=== PATIENT | female | born 1955 | race Caucasian/White ===

== ENCOUNTER 2020-12-03 12:07 | Outpatient (REF) | payer MEDICAID, SELFPAY ==
--- NOTE | ~2020-12-03 | MM_ITS ---
EXAMINATION: MM SCREENING DIGITAL BREAST TOMOSYNTHESIS, BILATERAL CLINICAL INFORMATION: Screening. Asymptomatic. The lifetime risk of breast cancer based on the Tyrer-Cuzick Model is 5%. COMPARISON: Mammography: 11/28/2019, 11/22/2018. TECHNIQUE: Digital breast tomosynthesis is performed in both the craniocaudal and mediolateral oblique views along with computer-aided detection (CAD). Synthesized 2D images are generated from the tomosynthesis. Additional bilateral CC and right MLO views are provided. FINDINGS: There are scattered areas of fibroglandular density (ACR BI-RADS breast composition Category b). There are no significant masses, abnormal calcifications, or other abnormalities. Parenchymal pattern is similar to prior studies. Low left axillary tail node. Stable. Skin contours are smooth. No erosive changes. MM/MM tomosynthesis screening BI IMPRESSION: No mammographic evidence of malignancy. ASSESSMENT: BI-RADS 2: Benign RECOMMENDATION: Routine annual mammography screening. This patient's information was entered into a reminder system with a target due date for their next mammogram.
== END 2020-12-03 12:08 | disposition home or self-care (01) ==
LOC: HO.MAMMO 12:07
PROVIDERS: Visit Provider Internal Medicine Geriatric Medicine
DX: Z12.31 Encounter for screening mammogram for malignant neoplasm of breast (principal)
CPT/HCPCS: 77063; 77067

== ENCOUNTER 2021-02-06 10:24 | Outpatient (REF) | payer MEDICAID, SELFPAY ==
--- NOTE | ~2021-02-06 | XR_ITS ---
EXAMINATION: XR CHEST CLINICAL INFORMATION: Asthma. Suspect COVID exposure. COMPARISON: Vp Training film CT dated 03/02/2018 and chest film dated 06/01/2017. TECHNIQUE: 2 views of the chest were obtained. FINDINGS: Bibasilar areas of atelectasis. No large area of infiltrate. The mid to upper lung zones are grossly clear. Stable probable granuloma left upper lung zone. The cardiac silhouette is comparable to previous. The hilar structures do not appear pathologically enlarged. Degenerative change in the thoracic spine. No compression injury. XR/XR chest 2V IMPRESSION: Bilateral basilar areas of atelectasis/mild infiltrate. The mid to upper lung zones are grossly clear.
== END 2021-02-06 10:25 | disposition home or self-care (01) ==
LOC: HO.XRAY 10:24
PROVIDERS: Absent Provider Internal Medicine Geriatric Medicine; PCP Internal Medicine Geriatric Medicine; Visit Provider Nurse Practitioner Family
DX: J45.21 Mild intermittent asthma with (acute) exacerbation (principal); R91.8 Other nonspecific abnormal finding of lung field
CPT/HCPCS: 71046

== ENCOUNTER 2021-05-30 13:34 | Outpatient (REF) | payer MEDICAID, SELFPAY ==
--- NOTE | ~2021-05-30 | XR_ITS ---
EXAMINATION: XR CHEST CLINICAL INFORMATION: Cough COMPARISON: Chest radiographs 02/06/2021, 06/01/2017 TECHNIQUE: 2 views of the chest were obtained. FINDINGS: There is subtle airspace opacity mid right middle lobe. There is no lobar or segmental airspace consolidation or or air bronchograms. No effusion. Posterior costophrenic sulci are clear. There is an old calcified granuloma overlying the anterior lateral left upper lobe at level of aortic knob similar to prior studies. The cardiac and hilar and mediastinal contours and bony structures are stable. Again, there is bulky calcific tendinosis left shoulder. XR/XR chest 2V IMPRESSION: 1. Suspect subtle airspace opacity mid right middle lobe. No effusion. 2. Old calcified granuloma left upper lobe, benign.
== END 2021-05-30 13:35 | disposition home or self-care (01) ==
LOC: HO.XRAY 13:34
PROVIDERS: Absent Provider Internal Medicine Geriatric Medicine; PCP Internal Medicine Geriatric Medicine; Visit Provider Family Medicine
DX: R05.9 Cough, unspecified (principal)
CPT/HCPCS: 71046

== ENCOUNTER 2021-07-26 16:59 | Emergency (ER) | payer MEDICAID, SELFPAY ==
[2021-07-26 17:04] VITALS: BP 173/69; PULSE 102; RESP 20; TEMP 36.9; O2SAT 95; BMI 38.3
--- NOTE | 2021-07-26 17:14 | ED.DIZZY ---
HPI - Dizziness General Chief Complaint: Dizziness Stated Complaint: Dizzy, ear? Time Seen by Provider: 07/26/21 17:13 Source: patient Mode of arrival: ambulatory Limitations: no limitations History of Present Illness HPI Narrative: Patient is a 65 year old female presenting to the emergency department today with dizziness and nausea. Patient states that she was diagnosed with an inner ear issue when she lived in [place] but hasn't had an episode of it in years. Patient states she feels as though the room is spinning. Patient states that she has had sinus pressure for the last few months. Patient states that she was just seen by her PCP who acknowledged all of her symptoms and performed blood testing but did not give her anything for her symptoms. Patient denies any lightheadedness, abdominal pain, vomiting, fever, chills, blurry vision, double vision, loss of vision, chest pain, difficulty breathing, shortness of breath, back pain, night sweats, pain with urination, increased urinary frequency, increased urinary urgency, blood in her urine or stool, syncope or a near syncopal episode, recent trauma or falls, bowel incontinence, bladder incontinence, bowel retention, bladder retention, or any other complaints at this time. MD elicited complaint: dizziness Pertinent past history: BPPV Timing: gradual onset Severity: mild Description: room spinning Context: change in body position History of similar symptoms: Yes Exacerbating factors: movement/ambulation Relieving factors: remaining still Associated symptoms: nausea and nasal congestion Stroke scale total: 0 Related Data Home Medications Medication Instructions Recorded Confirmed Space Chamber Plus 07/14/21 07/14/21 acetaminophen 500 mg tablet 500 mg PO Q6H PRN 07/14/21 07/14/21 albuterol sulfate 90 mcg/actuation 2 puff INHALATION Q4-6H PRN 07/14/21 07/14/21 aerosol inhaler (ProAir HFA) atorvastatin 20 mg tablet 1 tab PO DAILY 07/14/21 07/14/21 blood pressure test kit-large 07/14/21 07/14/21 chlorthalidone 50 mg tablet 1 tab PO DAILY 07/14/21 07/14/21 fluticasone propionate 110 2 puff PO BID 07/14/21 07/14/21 mcg/actuation HFA aerosol inhaler (Flovent HFA) fluticasone propionate 110 2 puff PO BID 07/14/21 07/14/21 mcg/actuation HFA aerosol inhaler (Flovent HFA) metformin 500 mg tablet 1 tab PO 07/14/21 nifedipine 60 mg tablet,extended 1 tab PO BID 07/14/21 07/14/21 release Previous Rx's Medication Instructions Recorded doxycycline hyclate 100 mg tablet 100 mg PO DAILY 7 Days #14 tab 07/26/21 Allergies Allergy/AdvReac Type Severity Reaction Status Date / Time aspirin [ASPIRIN] Allergy Unknown ANGIOEDEMA Unverified 01/25/20 17:34 cephalexin Allergy Diarrhea Verified 07/14/21 13:13 lisinopril Allergy Rash Verified 07/14/21 13:13 Review of Systems Constitutional: Constitutional: Reports no additional constitutional complaints, Denies chills, Denies fever(s) and Denies night sweats Eyes: Eyes: Reports no additional eye complaints, Denies blurry vision, Denies change in vision, Denies diplopia, Denies eye discharge, Denies loss of vision and Denies eye pain ENT: Reports dizziness and Reports nasal congestion Cardiovascular: Cardiovascular: Reports no additional cardiovascular complaints, Denies chest pain, Denies lightheadedness, Denies Loss of Consciousness and Denies dyspnea Respiratory: Respiratory: Reports no additional respiratory complaints and Denies dyspnea Gastrointestinal: Gastrointestinal: Reports no additional gastrointestinal complaints, Denies abdominal pain, Denies melena, Denies hematochezia, Denies change in bowel habits and Denies change in stool character Genitourinary: Genitourinary: Denies hematuria, Denies urinary frequency, Denies dysuria, Denies urinary incontinence, Denies urinary hesitancy and Denies urinary urgency Musculoskeletal: Musculoskeletal: Reports no additional musculoskeletal complaints, Denies numbness and Denies tingling Neurologic: Reports dizziness, Denies loss of vision, Denies numbness and Denies tingling Psychiatric: Psychiatric: Reports no additional psychiatric complaints Endocrine: Endocrine: Reports no additional endocrine complaints Hematologic/Lymphatic: Hematologic/Lymphatic: Reports no additional hematologic/lymphatic complaints Allergic/Immunologic: Allergic/Immunologic: Reports no additional allergic/immunologic complaints PMFSH Past Medical History Attestation statement: The following information was validated with the patient. Source: old records reviewed Medical History Chronic bilateral low back pain without sciatica Diabetes HTN (hypertension) Hyperlipemia Lung infiltrate Lung mass Lung nodule Moderate persistent asthma Morbid obesity Osteoarthritis of both knees Social History Social History Advance Directives: No Advance Directives Information Provided: No Patient : No Physical Exam Vital Signs: Vital Signs: Last Vital Signs Temp 98.4 F 07/26/21 17:04 Pulse 102 H 07/26/21 17:04 Resp 20 07/26/21 17:04 BP 173/69 H 07/26/21 17:04 Pulse Ox 95 07/26/21 17:04 BMI result Body Mass Index 38.3 Const: General: cooperative, no acute distress, alert and awake Nutritional Appearance: well nourished Orientation/consciousness: patient oriented x3 Limitations: no limitations HENMT: Head: Yes normal to inspection and Yes atraumatic Ears: hearing grossly normal bilaterally and external ears normal General nose exam: Normal external nose present, no nasal discharge noted and no epistaxis Face and sinus: Yes normal facial exam, No abrasion and No laceration Mouth: Normal oral and palatal mucosa present, no drooling and no muffled voice Eyes: General: appearance normal, both eyes and all related structures Periorbital: periorbital findings normal Eyelids: Yes eyelids normal Conjunctivae: conjunctivae normal Pupils: Equal, round and reactive pupils present EOM: EOMs intact bilaterally Neck: Neck: Yes normal visual inspection, Yes full ROM and Yes no lymphadenopathy Chest: Chest palpation & inspection: normal inspection of the chest Resp: Effort & Inspection: normal respiratory effort and able to speak in complete sentences Auscultation: clear to auscultation bilaterally Cardio: Rate: regular rate Rhythm: regular rhythm GI: Inspection: Yes normal to inspection Neuro: General: patient oriented x3 and moves all extremities Cranial nerves: Yes Equal, round and reactive pupils present Cognition (Neuro): normal cognition Motor exam (neuro): 5/5 motor strength present throughout Sensory Exam: Normal double simultaneous stimulation for sensation Coordination: [id number] test normal Extrem: General: Yes normal to inspection, Yes full ROM and Yes capillary refill normal Psych: Appearance: grossly normal Mental Status: mental status grossly normal Affect: normal affect Attitude: cooperative Thought process: Normal thought process present Thought content: Normal thought content present Insight: Good insight present (Psych) MDM - Dizziness MDM Narrative Medical decision making narrative: Patient is a 65 year old female presenting to the emergency department today with dizziness, nausea, and congestion. Patient's physical exam was unremarkable, including a normal neurological examination. Patient's physical examination was consistent with a BPPV secondary to a likely sinus infection. I explained my physical exam findings to the patient. I answered all questions asked by the patient. Patient received PO Meclazine and Zofran which she stated helped her symptoms significantly. I stressed the importance of the patient taking her medication as prescribed. I stressed the importance of the patient following up with her primary care provider. I stressed the importance of the patient returning to the emergency department immediately if her symptoms were to worsen or if she were to develop any dizziness, shortness of breath, difficulty breathing, chest pain, blurry vision, loss of vision, nausea, vomiting, abdominal pain, fever, chills, back pain, or any other complaints. Patient verbalized agreement and understanding with this treatment plan and discharge. Differential Diagnosis Differential diagnosis: Likely benign paroxysmal positional vertigo Medical Records Attestation: I reviewed the patient's medical records. Discharge Plan Discharge Clinical Impression: Sinusitis Patient Disposition: Home, Self-Care Instructions: Sinusitis (ED) Additional Instructions: Follow up with your primary care provider. Return to the emergency department immediately if your symptoms worsen or if you develop any dizziness, shortness of breath, difficulty breathing, chest pain, blurry vision, loss of vision, nausea, vomiting, abdominal pain, fever, chills, back pain, or any other complaints. Prescriptions: New doxycycline hyclate 100 mg tablet 100 mg PO DAILY 7 Days Qty: 14 0RF No Action atorvastatin 20 mg tablet 1 tab PO DAILY 0RF acetaminophen 500 mg Tablet 500 mg PO Q6H PRN (Reason: Pain) 0RF (DME) blood pressure test kit-large Kit MISCELLANEOUS BID 0RF metformin 500 mg tablet 1 tab PO 0RF chlorthalidone 50 mg tablet 1 tab PO DAILY 0RF albuterol sulfate [ProAir HFA] 90 mcg/actuation Hfa Aerosol Inhaler 2 puff INHALATION Q4-6H PRN (Reason: Shortness Of Breath Or Wheezing) 0RF nifedipine 60 mg tablet extended release 1 tab PO BID 0RF Flovent HFA 110 mcg/actuation HFA aerosol inhaler 2 puff PO BID 0RF Flovent HFA 110 mcg/actuation HFA aerosol inhaler 2 puff PO BID 0RF (DME) Space Chamber Plus 0RF Referrals: [facility] [Primary Care Provider] - 2 days Hayley Peres MD [Physician] - 2 days Interventions: ED Discharge Assessment Last Done: 07/26/21 17:34 Discharge Date/Time: 07/26/21 17:36 Print Language: Malian
[2021-07-26] MEDS: Ondansetron ODT 4 MG TAB.RAPDIS TRANSLINGU (17:22)
[2021-07-26] MEDS: Meclizine HCl 12.5 MG TABLET PO (17:25)
== END 2021-07-26 17:36 | disposition home or self-care (01) ==
PROVIDERS: Emergency Provider Emergency Medicine
DX: J32.9 Chronic sinusitis, unspecified (principal); R42 Dizziness and giddiness; E11.9 Type 2 diabetes mellitus without complications; I10 Essential (primary) hypertension; E78.5 Hyperlipidemia, unspecified; Z79.02 Long term (current) use of antithrombotics/antiplatelets
CPT/HCPCS: 99283

== ENCOUNTER 2022-01-19 11:23 | Outpatient (REF) | payer MEDICARE, MEDICAID, SELFPAY ==
--- NOTE | ~2022-01-19 | XR_ITS ---
EXAMINATION: XR CHEST CLINICAL INFORMATION: Localized edema COMPARISON: 05/30/2021 TECHNIQUE: 2 views of the chest were obtained. FINDINGS: 5 mm left upper lobe granuloma again seen. Ill-defined opacity again seen at the right lung base, nonspecific. There was a medial right lower lobe nodule on the prior chest CT this abnormality is more lateral in position. Persistent, perhaps increased streaky opacities at the left lung base. No pleural effusion or pneumothorax. Normal heart size. Regional skeleton intact.. XR/XR chest 2V IMPRESSION: An ill-defined nodular opacity at the right lung base persists from the prior study. For this reason, a chest CT is recommended for further evaluation. Increased streaky opacities at left lung base may represent pneumonia. The report will be called to the ordering clinician by a [place] [facility].
== END 2022-01-19 11:24 | disposition home or self-care (01) ==
LOC: HO.XRAY 11:23
PROVIDERS: PCP Internal Medicine Geriatric Medicine; Visit Provider Internal Medicine Geriatric Medicine
DX: R00.0 Tachycardia, unspecified (principal); R06.01 Orthopnea; R06.09 Other forms of dyspnea; R60.0 Localized edema
CPT/HCPCS: 71046

== ENCOUNTER → 2022-02-06 13:47 | Outpatient (REF) | payer MEDICARE, MEDICAID, SELFPAY ==
--- NOTE | 2022-02-06 13:52 | CA_ITS ---
Transthoracic Echocardiogram Patient (Last, First, Middle): Kamryn Worley M Gender: Female Date of : 1955 Age: 66 Procedure Date: 02/06/2022 Procedure Type: Transthoracic Echocardiogram Location: OP Height: 167.64 cm Weight: 99.79 kg BSA: 2.08 m2 Heart Rate: 84 bpm BP: 130 / 60 mmHg Executive Assistant: TO Referring MD: Ion Faulkner MD Symptoms: TACHY,DYSPNEA,ORTHOPNEA ABN.EKG Study Quality: Technically Difficult/Contrast Declined Conclusions: - Normal left ventricular size and systolic function. There is mildly increased left ventricular wall thickness. The visually estimated ejection fraction is between 60-65%. - E/E prime ratio is >15, consistent with elevated filling pressures. - Normal right ventricular cavity size and systolic function. Findings Procedure Information The quality of the study was technically difficult. The patient declines contrast. Left Ventricle Normal left ventricular size and systolic function. There is mildly increased left ventricular wall thickness. The visually estimated ejection fraction is between 60-65%. Abnormal diastolic function is noted. Spectral Doppler is indicative of an impaired relaxation filling pattern. E/E prime ratio is >15, consistent with elevated filling pressures. Right Ventricle Normal right ventricular cavity size and systolic function. Atria The left atrium is normal in size. The right atrium is normal in size. Aortic Valve The aortic valve structure and function is likely normal. There is no aortic valve stenosis. There is no aortic valve regurgitation. Mitral Valve The mitral valve appears normal. There is no mitral valve regurgitation. There is no mitral valve stenosis. Pulmonic Valve The pulmonic valve is likely normal. Tricuspid Valve Normal tricuspid valve structure and function. There is trace tricuspid valve regurgitation. Normal right atrial pressure. There is no evidence of pulmonary hypertension. Great Vessels There is mild dilatation of the sinuses of Valsalva measuring 3.53 cm. The visualized portions of the pulmonary artery and branches are normal. Venous The inferior vena cava is normal in size and collapses greater than 50% with inspiration. Pericardium/Pleural Prominent epicardial adipose tissue noted. There is a small pericardial effusion. There are no definitive echocardiographic findings of tamponade physiology. Prior Study Comparison No prior study available for comparison. Measurements 2D Linear Measurements IVSd: 1.05 0.6-0.9/0.6-1.0 cm LVIDd: 4.32 3.9-5.3/4.2-5.9 cm LVIDd Index: 2.08 2.4-3.2/2.2-3.1 cm/m2 LVIDs: 2.20 2.0-3.6 cm LVPWd: 1.10 0.7-1.1 cm LA Diam: 4.60 2.7-3.8/3.0-4.0 cm LAIDs Index: 2.21 1.5-2.3 cm/m2 LV Mass: 197.83 67-162/88-224 g LV Mass Index: 95.11 43-95/49-115 g/m2 LVOT Diam: 2.00 3.0+(-)1.3 cm Mitral Valve MV Pk E: 0.93 MV PK A: 0.99 MV Decel Time: 200.00 E/A: 0.90 E'Lateral: 4.68 E'Medial: 4.35 E/E' Med: 21.40 E/E' Lat: 19.90 PHT: 59.00 MVA PHT: 3.73 Decel Weld: 4.65 Aortic Valve AoV Pk Fernando: 1.64 AoV Mn Fernando: 1.08 AoV VTI: 0.31 AoV Pk Grad: 11.00 Aov Mn Grad: 5.00 ERMELINDA Cont.VTI: 2.32 LVOT LVOT Pk Fernando: 1.27 LVOT Mn Fernando: 0.83 LVOT VTI: 0.23 LVOT Pk Grad: 6.00 LVOT Mn Grad: 3.00 LVOT Diam: 2.00 LVOT Area: 3.14 Diastolic Function MV Pk E: 0.93 MV Pk A: 0.99 E/A: 0.90 E'Medial: 4.35 E/E' Med: 21.40 E' Laterial: 4.68 E/E' Lat: 19.90 Right Ventricle TAPSE (mm): 25.00 TVS' Fernando: 20.60 Tricuspid Valve TR Pk Fernando: 2.76 TR Pk Grad: 30.00 RA Press: 3.00 RVSP: 33.00 Great Vessels Aorta Sinus of Valsalva: 3.53 2.0-3.[address] Ridge: 2.50 1.7-3.4 cm Ao Asc: 3.10 2.1-3.4 cm Updated in Other Vendor System with Status of Final Saeed Szymanski MD electronically signed on 02/06/2022 8:44:04 PM with status of Final
== END ==
LOC: HO.CARD 13:47
PROVIDERS: PCP Internal Medicine Geriatric Medicine; Visit Provider Internal Medicine Geriatric Medicine
DX: R00.0 Tachycardia, unspecified (principal); R94.31 Abnormal electrocardiogram [ECG] [EKG]
CPT/HCPCS: 93306

== ENCOUNTER 2022-02-25 13:03 | Outpatient (REF) | payer MEDICARE, MEDICAID, SELFPAY ==
--- NOTE | ~2022-02-25 | XR_ITS ---
EXAMINATION: XR CHEST CLINICAL INFORMATION: Pneumonia. COMPARISON: Chest radiograph 01/19/2022. TECHNIQUE: 2 views of the chest were obtained. FINDINGS: Stable appearance of the cardiomediastinal silhouette. An ill-defined irregular opacity in the right lower lobe, persists. As before, correlation with a chest CT is recommended. A 5 mm left upper lobe granuloma is redemonstrated. No new focal airspace opacities. Subsegmental atelectasis versus scarring in the left lower lobe are noted. No pleural effusion or pneumothorax. No acute osseous abnormalities. Thoracic spondylosis. XR/XR chest 2V IMPRESSION: 1. Persistent irregular opacity in the right lower lobe. Recommend correlation with a chest with IV contrast 2. No new focal airspace opacities. 3. No pleural effusion or pneumothorax. 4. Subsegmental atelectasis versus scarring in the left lower lobe.
== END 2022-02-25 13:04 | disposition home or self-care (01) ==
LOC: HO.XRAY 13:03
PROVIDERS: PCP Internal Medicine Geriatric Medicine; Visit Provider Internal Medicine Geriatric Medicine
DX: Z87.01 Personal history of pneumonia (recurrent) (principal)
CPT/HCPCS: 71046

== ENCOUNTER 2022-03-26 14:51 | Outpatient (REF) | payer MEDICARE, MEDICAID, SELFPAY | END 2022-03-26 14:52 | disposition home or self-care (01) | LOC: HO.CT 14:51 | PROVIDERS: PCP Internal Medicine Geriatric Medicine; Visit Provider Internal Medicine Geriatric Medicine | DX: Z13.89 Encounter for screening for other disorder (principal) ==

== ENCOUNTER 2022-03-31 09:26 | Outpatient (REF) | payer MEDICARE, MEDICAID, SELFPAY ==
--- NOTE | ~2022-03-31 | CT_ITS ---
EXAMINATION: CT CHEST WITH CONTRAST CLINICAL INFORMATION: Pulmonary mass COMPARISON: Previous chest x-ray most recent February [address] most recent February 2019 TECHNIQUE: Multidetector volumetric CT imaging of the chest was obtained after the administration of 65 mL of Omnipaque 350 intravenous contrast without immediate adverse reactions. Axial MIP volume rendering provided. Sagittal and coronal reformatted images were obtained. This CT examination was performed using dose optimization techniques as appropriate, variously including the following: *Automated exposure control *Adjustment of mA and/or kV according to patient size (this includes techniques or standardized protocols for targeted exams where dose is matched to indication/reason for exam; i.e. extremities or head) *Use of iterative reconstruction technique DLP: 228 mGy-cm FINDINGS: LUNGS: Evaluation of the lungs is limited due to artifact from respiratory motion. There is a 5 mm calcified left upper lobe nodule probably representing a calcified granuloma axial image 64 series 7. There may be be areas of bronchial wall thickening or airways disease. There is subsegmental atelectasis or small infiltrates at the lung bases in the right middle lobe, and bilateral lower lobes. This obscures the known right middle lobe nodule. This measures approximately 1.2 cm axial image 1:15 series 7 and is probably not appreciably changed. MEDIASTINUM: Normal heart size. Mild coronary artery calcification. No pericardial effusion. Small mediastinal lymph nodes. No enlarged lymph nodes. PLEURA: There is no pleural effusion. No pleural mass or thickening. AXILLA: No lymphadenopathy. UPPER ABDOMEN: Unremarkable OSSEOUS STRUCTURES: Degenerative changes of the spine. Stable sclerotic density in the T8 vertebral body. CT/CT chest w IV con IMPRESSION: Probable no appreciable change in the known right middle lobe nodule. Evaluation is somewhat limited due to artifact from respiratory motion and atelectasis or small infiltrates at the lung bases. Stable calcified left upper lobe nodule probably representing a calcified granuloma. Fleischner guidelines were followed.
[2022-03-31] MEDS: iohexoL 350 MG/ML 100 ML INFUS..BTL IV (10:16)
[2022-03-31 14:46] LABS: Creatinine POC 0.9 mg/dL (0.5-1.4); GFR POC > 60
== END 2022-03-31 09:27 | disposition home or self-care (01) ==
LOC: HO.CT 09:26
PROVIDERS: PCP Internal Medicine Geriatric Medicine; Visit Provider Internal Medicine Geriatric Medicine
DX: R91.8 Other nonspecific abnormal finding of lung field (principal)
CPT/HCPCS: 71260; 82565; Q9967

== ENCOUNTER 2022-08-06 12:56 | Emergency (ER) | payer MEDICARE, MEDICAID, SELFPAY ==
--- NOTE | ~2022-08-06 | XR_ITS ---
EXAMINATION: XR CHEST CLINICAL INFORMATION: Shortness of breath. COMPARISON: 02/25/[address] scan dated 03/31/2022. TECHNIQUE: Frontal view of the chest was obtained. FINDINGS: Small calcified granuloma in the left upper lobe. The right lung is clear. The heart and mediastinal structures are unremarkable. XR/XR chest 1V IMPRESSION: No acute cardiopulmonary process.
--- NOTE | ~2022-08-06 | US_ITS ---
EXAMINATION: US VENOUS ULTRASOUND WITH DOPPLER LOWER EXTREMITY, BILATERAL CLINICAL INFORMATION: Left greater than right edema shortness of breath COMPARISON: None available. TECHNIQUE: Ultrasound of the deep veins is performed from the hip to the calf with compression sonography and color and pulse Doppler assessment. Spectral analysis with color-flow imaging is performed. FINDINGS: RIGHT: There is normal venous compression and respiratory variation and augmented flow. The visualized common femoral vein, superficial femoral vein, profunda femoral vein, popliteal vein, and the trifurcation region shows no evidence of deep venous thrombosis. There is no significant popliteal fossa cyst. LEFT: There is normal venous compression and respiratory variation and augmented flow. The visualized common femoral vein, superficial femoral vein, profunda femoral vein, popliteal vein, and the trifurcation region shows no evidence of deep venous thrombosis. There is no significant popliteal fossa cyst. If the patient's symptoms persist, followup ultrasound in 5 days 7 days might be of value to exclude proximal propagation from a non-visualized calf vein. US/US venous duplex LE BI IMPRESSION: No DVT demonstrated in the bilateral lower extremity.
[2022-08-06 13:07] VITALS: BP 157/75; BP 164/67; PULSE 105; PULSE 92; RESP 20; TEMP 36.7; O2SAT 90; O2SAT 96; BMI 36.3
--- NOTE | 2022-08-06 13:07 | ECG_ITS ---
Test Reason : SOB Blood Pressure : / mmHG Vent. Rate : 091 BPM Atrial Rate : 091 BPM P-R Int : 168 ms QRS Dur : 082 ms QT Int : 356 ms P-R-T Axes : 044 016 070 degrees QTc Int : 437 ms Artifact in tracing Sinus rhythm with occasional Premature ventricular complexes Possible Anterior infarct (cited on or before 05-JAN-2019) Abnormal ECG When compared with ECG of 05-JAN-2019 17:19, Premature ventricular complexes are now Present Referred By: Jesus Garcia Electronically Signed By:ULISES CHOWDHURY
[2022-08-06 13:12] VITALS: PULSE 97; RESP 18; O2SAT 89
[2022-08-06] MEDS: Albuterol Sulfate (0.083%) 2.5 MG/3 ML VIAL.NEB INHALE (13:12)
--- NOTE | 2022-08-06 13:17 | PC.NURSE ---
Addendum entered by Anjelica Brannon 08/06/22 13:20: lungs sounds clear bilaterally Original Note: pt coming from [facility] with low O2 sat. 90% RA in ED. Pt given updraft on 5L currently bringing O2 to 98%. EKG done, tech drawing labs. site monitor on, will cont to monitor.
[2022-08-06 13:28] LABS: MANUAL DIFF FLAG NO
[2022-08-06] MEDS: methylPREDNISolone Sod Succ 125 MG/2 ML VIAL IVPUSH (13:29)
--- NOTE | 2022-08-06 13:31 | PC.NURSE ---
pt medicated per order. pt finished albuterol treatment,.lungs sounds clear. Sat on room air 88/90%.
[2022-08-06 13:33] LABS: Basophils Absolute Auto 0.1 X10*3/uL (0.0-0.2); Basophils Percent Auto 0.8 % (0-2); Eosinophils Absolute Auto 1.2 X10*3/uL (0.0-0.4); Eosinophils Percent Auto 10.9 % (0-4); Hematocrit 39.9 % (37.0-47.0); Hemoglobin 13.1 g/dl (12.0-16.0); Imm Gran Abs Auto 0.03 X10*3/uL (0.00-0.03); Imm Gran Pct Auto 0.3 % (0.0-0.4); Lymphocytes Absolute Auto 3.3 X10*3/uL (1.2-4.9); Lymphocytes Percent Auto 30.3 % (20-40); Mean Corpuscular HGB Conc 32.8 g/dl (31.0-35.0); Mean Corpuscular Hemoglobin 28.4 pg (27.0-33.0); Mean Corpuscular Volume 86.6 fL (80.0-98.0); Mean Platelet Volume 8.9 fL (9.4-12.3); Monocytes Absolute Auto 1.1 X10*3/uL (0.1-1.2); Monocytes Percent Auto 9.9 % (2-11); Neutrophils Absolute Auto 5.1 x10*3/uL (2.0-8.3); Neutrophils Percent Auto 47.8 % (45-73); Platelet Count 333 X10*3/uL (160-400); Red Blood Count 4.61 X10*6/uL (4.20-5.50); Red Cell Distribution Width 13.6 % (11.0-16.0); White Blood Count 10.7 X10*3/uL (4.8-10.8)
[2022-08-06 13:48] LABS: Anion Gap 18 (12-20); Blood Urea Nitrogen 17 mg/dL (9-16); Calcium 9.6 mg/dL (8.4-10.2); Carbon Dioxide 30 mmol/L (22-29); Chloride 99 mmol/L (96-108); Creatinine Clr Calc Pharmacy 81.4; Estimated Glomerular Filt Rate > 60; Glucose Random 145 mg/dL (60-115); Potassium 3.6 mmol/L (3.3-5.1); Sodium 143 mmol/L (135-145)
[2022-08-06 13:55] LABS: B Type Natriuretic Peptide 10 pg/mL (<100)
[2022-08-06 13:58] LABS: Troponin-I High Sensitivity < 3.5 ng/L (<3.5-17.0)
[2022-08-06 14:03] VITALS: BP 147/67; PULSE 90; RESP 18; O2SAT 90
[2022-08-06 14:32] VITALS: PULSE 91; RESP 15; O2SAT 91
--- NOTE | 2022-08-06 14:33 | PC.NURSE ---
pt O2 remaining 89 on RA, this nurse put pt on 2L O2. sat 91%
--- NOTE | 2022-08-06 14:57 | ED_ITS ---
HPI - General Adult General Chief complaint: Dyspnea Stated complaint: SOB FROM MD OFFICE PER EMS Time Seen by Provider: 08/06/22 13:06 Source: patient Mode of arrival: ambulatory Limitations: no limitations History of Present Illness HPI narrative: 66-year-old female presents with shortness of breath. Symptoms started today. Associated with cough, congestion, mucus production. She denies any fevers or chills. She denies any chest pain. She was at her clinic noting that her oxygen saturation was in the 80s. She was given albuterol her oxygen saturation improved. On route, she was 96% on 2 L nasal cannula. Access was obtained. Patient describes her symptoms as moderate to severe. They are worse with exertion. They are better with rest. She did denies any orthopnea, PND lower extremity edema. She denies a history of PE or DVT. Patient has had similar symptoms in the past and does have chronic pulmonary disease for which she takes albuterol and Flovent. She takes her medications appropriately. Related Data Home Medications Medication Instructions Recorded Confirmed Space Chamber Plus 07/14/21 07/14/21 acetaminophen 500 mg tablet 500 mg PO Q6H PRN Pain 07/14/21 07/14/21 albuterol sulfate 90 mcg/actuation 2 puff inhalation Q4-6H PRN 07/14/21 07/14/21 aerosol inhaler (ProAir HFA) Shortness Of Breath Or Wheezing atorvastatin 20 mg tablet 1 tab PO DAILY 07/14/21 07/14/21 blood pressure test kit-large 07/14/21 07/14/21 chlorthalidone 50 mg tablet 1 tab PO DAILY 07/14/21 07/14/21 fluticasone propionate 110 2 puff PO BID 07/14/21 07/14/21 mcg/actuation HFA aerosol inhaler (Flovent HFA) fluticasone propionate 110 2 puff PO BID 07/14/21 07/14/21 mcg/actuation HFA aerosol inhaler (Flovent HFA) metformin 500 mg tablet 1 tab PO 07/14/21 nifedipine 60 mg tablet,extended 1 tab PO BID 07/14/21 07/14/21 release Previous Rx's Medication Instructions Recorded doxycycline hyclate 100 mg tablet 100 mg PO DAILY 7 days #14 tabs 07/26/21 peg 3350-electrolytes 236 240 ml PO Q10M 1 day #4,000 mL 09/18/21 gram-22.74 gram-6.74 gram-5.86 gram solution (Golytely) albuterol sulfate 2.5 mg/3 mL 2.5 mg (3 mL) inhalation Q4-6H PRN 08/06/22 (0.083 %) solution for nebulization shortness of breath or wheezing #180 mL azithromycin 250 mg tablet 250 mg PO DAILY 4 days #4 tabs 08/06/22 prednisone 50 mg tablet 50 mg PO DAILY #5 tabs 08/06/22 Allergies Allergy/AdvReac Type Severity Reaction Status Date / Time aspirin [ASPIRIN] Allergy Unknown ANGIOEDEMA Unverified 08/06/22 13:28 cephalexin Allergy Diarrhea Verified 08/06/22 13:28 lisinopril Allergy Rash Verified 08/06/22 13:28 COUNT INCLUDES THE [facility] Past Medical History Medical History Chronic bilateral low back pain without sciatica Diabetes HTN (hypertension) Hyperlipemia Lung infiltrate Lung mass Lung nodule Moderate persistent asthma Morbid obesity Osteoarthritis of both knees Social History Social History Alcohol intake: never Smoked in Last 30 Days: No Use of substances other than those prescribed or required for medical reasons: No Advance Directives: No Physical Exam ED Vital Signs: Vital Signs - 24 hr 08/06/22 13:07 08/06/22 13:12 08/06/22 14:03 Temperature 98.1 F Pulse Rate 92 97 90 Respiratory Rate 20 18 18 Blood Pressure 157/75 H 147/67 H Pulse Oximetry 90 L 90 L Oxygen Delivery Method Room Air Room Air Oxygen Flow Rate 08/06/22 14:32 Temperature Pulse Rate 91 Respiratory Rate 15 Blood Pressure Pulse Oximetry 91 L Oxygen Delivery Method Nasal Cannula Oxygen Flow Rate 2 BMI result Body Mass Index 36.3 GEN: Well developed, no acute distress, alert, oriented HEENT: Normocephalic, atraumatic, normal external ears, nose appears normal, no oropharyngeal edema or exudates Eyes: Normal to appearance Neck: Supple, no lymphadenopathy Respiratory: Talks in complete sentences, no respiratory distress, clear to auscultation bilaterally Cardiovascular: Regular rate and rhythm, no murmurs rubs or gallops Abdomen: Soft, nontender, nondistended, no guarding, no rebound Back: No CVA tenderness Extremities: No clubbing cyanosis or edema Neurologic: No focal neurologic deficits, cranial nerves 2-12 intact, strength is 5/5 bilaterally, gait normal Skin: No rash Course Course Course Narrative: 66-year-old female presents with shortness of breath. On exam, she had no wheezing. I did not appreciate any crackles. She did have some asymmetric lower extremity edema is trace on the left minimal on the right. Her oxygen saturation was certainly diminished. Will obtain an ultrasound rule out DVT. Consider CT scan of the chest rule out PE. Will obtain a chest x-ray to rule out bronchitis, pneumonia, CHF. Will provide patient with a nebulizer treatment and steroids. Patient had frequent re-evaluations. Reevaluation(s) Reevaluation #1: patient still hypoxic, will give duoneb now and reevaluate Time: 15:11 Reevaluation #2: Patient has finished her 3rd treatment this afternoon. She is currently off oxygen we will see how she does determine if she requires admission or not. Time: 16:15 Reevaluation #3: O2 on room air was 93% and with ambulation 90%. Will d/c with negbulizer solution and antibiotics, steroids. Time: 16:23 Medications Administered Discontinued Medications Generic Name Dose Route Start Last Admin Trade Name Abelq PRN Reason Stop Dose Admin Albuterol Sulfate 2.5 mg 08/06/22 13:07 08/06/22 13:12 Albuterol Sulfate (0.083%) 2.5 Mg/3 Ml Vial.Neb INHALE 08/06/22 13:08 2.5 mg ONCE ONE Administration Albuterol Sulfate 2.5 mg/ 0 mg 08/06/22 15:10 08/06/22 15:46 Ipratropium Supai 0.5 mg INHALE 08/06/22 15:11 2.5 each ONCE ONE Administration Methylprednisolone Sodium Succinate 125 mg 08/06/22 13:07 08/06/22 13:29 Methylprednisolone Sod Succ 125 Mg/2 Ml Vial IVPUSH 08/06/22 13:08 125 mg ONCE ONE Administration Medical Decision Making Medical Decision Making MDM Narrative: 66-year-old female presents with shortness of breath. On exam, she had no wheezing. I did not appreciate any crackles. She did have some asymmetric lower extremity edema is trace on the left minimal on the right. Her oxygen sat uration was certainly diminished. Will obtain an ultrasound rule out DVT. Consider CT scan of the chest rule out PE. Will obtain a chest x-ray to rule out bronchitis, pneumonia, CHF. Will provide patient with a nebulizer treatment and steroids. Patient had frequent re-evaluations. Differential Diagnosis Differential Diagnoses: The differential diagnosis associated with the presentation includes (CHF, bronchitis, pneumonia, asthma exacerbation, COPD exacerbation, pleural effusion, pulmonary edema, acute coronary syndrome) asthma exacerbation, Dyspnea Admission/Observation Consideration of admission/observation: Escalation of care including admission/observation considered Lab Data MDM Lab Attestation statement: I reviewed the patient's lab results. 08/06/22 13:25 08/06/22 13:25 Labs: Lab Results 08/06/22 08/06/22 08/06/22 Range/Units 13:25 13:25 13:25 WBC 10.7 (4.8-10.8) X10*3/uL RBC 4.61 (4.20-5.50) X10*6/uL Hgb 13.1 (12.0-16.0) g/dl Hct 39.9 (37.0-47.0) % MCV 86.6 (80.0-98.0) fL MCH 28.4 (27.0-33.0) pg MCHC 32.8 (31.0-35.0) g/dl RDW 13.6 (11.0-16.0) % Plt Count 333 (160-400) X10*3/uL MPV 8.9 L (9.4-12.3) fL Immature Gran % (Auto) 0.3 (0.0-0.4) % Neut % (Auto) 47.8 (45-73) % Lymph % (Auto) 30.3 (20-40) % Rooks % (Auto) 9.9 (2-11) % Eos % (Auto) 10.9 H (0-4) % Baso % (Auto) 0.8 (0-2) % Lymph # (Auto) 3.3 (1.2-4.9) X10*3/uL Rooks # (Auto) 1.1 (0.1-1.2) X10*3/uL Eos # (Auto) 1.2 H (0.0-0.4) X10*3/uL Baso # (Auto) 0.1 (0.0-0.2) X10*3/uL Abs Immat Gran (auto) 0.03 (0.00-0.03) X10*3/uL Absolute Neuts (auto) 5.1 (2.0-8.3) x10*3/uL Absolute Nucleated RBC 0.000 (0.0-0.012) X10*3/uL Nucleated RBC % (auto) 0.0 (0.0-0.2) /100WBC Sodium 143 (135-145) mmol/L Potassium 3.6 (3.3-5.1) mmol/L Chloride 99 (96-108) mmol/L Carbon Dioxide 30 H (22-29) mmol/L Anion Gap 18 (12-20) BUN 17 H (9-16) mg/dL Creatinine 0.83 (0.5-1.4) mg/dL Estim Creat Clear Calc 81.4 Estimated GFR > 60 Random Glucose 145 H (60-115) mg/dL Calcium 9.6 (8.4-10.2) mg/dL Troponin I High Sens < 3.5 (<3.5-17.0) ng/L B-Natriuretic Peptide (<100) pg/mL 08/06/22 Range/Units 13:25 WBC (4.8-10.8) X10*3/uL RBC (4.20-5.50) X10*6/uL Hgb (12.0-16.0) g/dl Hct (37.0-47.0) % MCV (80.0-98.0) fL MCH (27.0-33.0) pg MCHC (31.0-35.0) g/dl RDW (11.0-16.0) % Plt Count (160-400) X10*3/uL MPV (9.4-12.3) fL Immature Gran % (Auto) (0.0-0.4) % Neut % (Auto) (45-73) % Lymph % (Auto) (20-40) % Rooks % (Auto) (2-11) % Eos % (Auto) (0-4) % Baso % (Auto) (0-2) % Lymph # (Auto) (1.2-4.9) X10*3/uL Rooks # (Auto) (0.1-1.2) X10*3/uL Eos # (Auto) (0.0-0.4) X10*3/uL Baso # (Auto) (0.0-0.2) X10*3/uL Abs Immat Gran (auto) (0.00-0.03) X10*3/uL Absolute Neuts (auto) (2.0-8.3) x10*3/uL Absolute Nucleated RBC (0.0-0.012) X10*3/uL Nucleated RBC % (auto) (0.0-0.2) /100WBC Sodium (135-145) mmol/L Potassium (3.3-5.1) mmol/L Chloride (96-108) mmol/L Carbon Dioxide (22-29) mmol/L Anion Gap (12-20) BUN (9-16) mg/dL Creatinine (0.5-1.4) mg/dL Estim Creat Clear Calc Estimated GFR Random Glucose (60-115) mg/dL Calcium (8.4-10.2) mg/dL Troponin I High Sens (<3.5-17.0) ng/L B-Natriuretic Peptide 10 (<100) pg/mL Independent Interpretation I performed an independent interpretation of an: EKG (Normal sinus rhythm heart rate 91, low voltage, no acute ST elevations depressions, nonspecific T-wave changes), Plain X-Ray (No acute cardiopulmonary disease) and Ultrasound (No DVT) Radiology Impression Discussion of test interpretation with radiology: I have reviewed the radiolog ist's reading. ( US/US venous duplex LE BI IMPRESSION: No DVT demonstrated in the bilateral lower extremity. Dictated By:Letty Luke MDSigned By:<Electronically signed by Letty Luke MD in OV>08/06/22 [id number]) Independent Historian Clinical information obtained from an independent historian. History obtained from or confirmed by: EMS Tests considered The following testing was considered but not selected: CT chest Prescription Management I considered prescription management with: Antibiotic Chronic Conditions Patient?s care impacted by: Other (Asthma) Critical Care Time Critical Care Time Critical Care Time: Yes Total Critical Care Time: 35 Attestation: Critical care time in bedside care, documentation, review of diagnostic tests, review of previous records outside of procedures. Discharge Plan Discharge Clinical Impression: Asthma, Asthma with exacerbation Patient Disposition: Home, Self-Care Instructions: Asthma (DC), How to Use a Dry-Powder Inhaler (ED), How to Use a Nebulizer (ED) Additional Instructions: You were seen today for asthma exacerbation. He received steroids, oral antibiotics, nebulizer treatment. I am recommending the use her nebulizer machine at home 4 times daily include additional 2-3 times as needed. He will start your antibiotics for from the pharmacy tomorrow and your steroids as well. Should you have any progression in your symptoms, please return immediately to the hospital for re-evaluation. Prescriptions: New albuterol sulfate 2.5 mg /3 mL (0.083 %) solution for nebulization 2.5 mg inhalation Q4-6H PRN (Reason: shortness of breath or wheezing) Qty: 180 0RF azithromycin 250 mg tablet 250 mg PO DAILY 4 Days Qty: 4 0RF Rx Instructions: start on day 2 of therapy prednisone 50 mg tablet 50 mg PO DAILY Qty: 5 0RF No Action doxycycline hyclate 100 mg tablet 100 mg PO DAILY 7 Days Qty: 14 0RF atorvastatin 20 mg tablet 1 tab PO DAILY acetaminophen 500 mg Tablet 500 mg PO Q6H PRN (Reason: Pain) (DME) blood pressure test kit-large Kit MISCELLANEOUS BID metformin 500 mg tablet 1 tab PO chlorthalidone 50 mg tablet 1 tab PO DAILY albuterol sulfate [ProAir HFA] 90 mcg/actuation Hfa Aerosol Inhaler 2 puff INHALATION Q4-6H PRN (Reason: Shortness Of Breath Or Wheezing) nifedipine 60 mg tablet extended release 1 tab PO BID Flovent HFA 110 mcg/actuation HFA aerosol inhaler 2 puff PO BID Flovent HFA 110 mcg/actuation HFA aerosol inhaler 2 puff PO BID (DME) Space Chamber Plus peg 3350-electrolytes [Golytely] 236-22.74-6.74 -5.86 gram recon soln 240 ml PO Q10M 1 Days Qty: 4000 0RF Rx Instructions: until fecal effluent is clear; do not exceed a total volume of 2,000 mL Referrals: Name,MD Ion [Primary Care Provider] -
[2022-08-06] MEDS: Azithromycin 500 MG TABLET PO (16:41)
--- NOTE | 2022-08-06 16:43 | PC.NURSE ---
zithromax given per JUL. pt walking sat @ 90% per .
== END 2022-08-06 16:51 | disposition home or self-care (01) ==
PROVIDERS: Emergency Provider Emergency Medicine; PCP Internal Medicine Geriatric Medicine
DX: J45.901 Unspecified asthma with (acute) exacerbation (principal); R06.02 Shortness of breath; R60.0 Localized edema; R94.31 Abnormal electrocardiogram [ECG] [EKG]; Z79.899 Other long term (current) drug therapy
CPT/HCPCS: 36415; 71045; 80048; 83880; 84484; 85025; 93005; 93970; 94640; 96374; 99285; J2930

== ENCOUNTER 2023-02-12 11:45 | Outpatient (REF) | payer MEDICARE, MEDICAID, SELFPAY | END 2023-02-12 11:46 | disposition home or self-care (01) | LOC: HO.HHCL 11:45 | PROVIDERS: Visit Provider Internal Medicine Geriatric Medicine | DX: J45.40 Moderate persistent asthma, uncomplicated (principal); R09.89 Other specified symptoms and signs involving the circulatory and respiratory systems; I10 Essential (primary) hypertension; J98.4 Other disorders of lung; E11.69 Type 2 diabetes mellitus with other specified complication | CPT/HCPCS: 36415; 80053; 80061; 82607; 85025 ==

== ENCOUNTER 2023-02-16 10:54 | Outpatient (REF) | payer MEDICARE, MEDICAID, SELFPAY | END 2023-02-16 10:55 | disposition home or self-care (01) | LOC: HO.HHCL 10:54 | PROVIDERS: Visit Provider Internal Medicine Geriatric Medicine | DX: E13.9 Other specified diabetes mellitus without complications (principal); J45.40 Moderate persistent asthma, uncomplicated; R09.89 Other specified symptoms and signs involving the circulatory and respiratory systems; I10 Essential (primary) hypertension; J98.4 Other disorders of lung | CPT/HCPCS: 82043; 82570 ==

== ENCOUNTER 2023-06-18 12:04 | Outpatient (REF) | payer MEDICARE, MEDICAID, SELFPAY ==
[2023-06-18 14:45] LABS: Anion Gap 16 (12-20); Blood Urea Nitrogen 15 mg/dL (9-16); Calcium 10.5 mg/dL (8.4-10.2); Carbon Dioxide 27 mmol/L (22-29); Chloride 102 mmol/L (96-108); Estimated Glomerular Filt Rate > 60; Glucose Random 97 mg/dL (60-115); Potassium 4.1 mmol/L (3.3-5.1); Sodium 141 mmol/L (135-145)
[2023-06-18 15:01] LABS: Vitamin D 25-OH Total 7.8 ng/mL (>30)
[2023-06-18 15:04] LABS: Parathyroid Hormone Intact 107.4 pg/mL (8.7-77.1)
== END 2023-06-18 12:05 | disposition home or self-care (01) ==
LOC: HO.HHCL 12:04
PROVIDERS: Visit Provider Internal Medicine Geriatric Medicine
DX: E83.52 Hypercalcemia (principal)
CPT/HCPCS: 36415; 80048; 82306; 83970

== ENCOUNTER 2023-06-21 12:10 | Outpatient (REF) | payer MEDICARE, MEDICAID, SELFPAY ==
--- NOTE | ~2023-06-21 | XR_ITS ---
EXAMINATION: XR LUMBOSACRAL SPINE CLINICAL INFORMATION: Low back pain with radiation to right buttocks COMPARISON: Lumbar spine 06/02/2027 TECHNIQUE: Three views of the lumbosacral spine. FINDINGS: There is a moderate curve of the lumbar spine, convex left. There are 5 nonrib-bearing lumbar-type vertebral bodies. The height of vertebral bodies is well-maintained. There is mild disc space narrowing at L2-L3, L3-L4 and L4-L5 with marginal osteophyte formation. There is marked disc space narrowing at L5-S1 with marginal osteophyte formation. There is marked degenerative facet joint disease L4-L5 and L5-S1. There is no spondylolisthesis. XR/XR lumbar spine 2-3V IMPRESSION: 1. Moderate curve of the lumbar spine, convex left. 2. Multilevel degenerative disc disease and degenerative facet joint disease.
== END 2023-06-21 12:11 | disposition home or self-care (01) ==
LOC: HO.XRAY 12:10
PROVIDERS: PCP Internal Medicine Geriatric Medicine; Visit Provider Internal Medicine Geriatric Medicine
DX: M79.18 Myalgia, other site (principal)
CPT/HCPCS: 72100

== ENCOUNTER 2023-09-30 13:39 | Outpatient (REF) | payer MEDICARE, MEDICAID, SELFPAY ==
[2023-09-30 17:01] LABS: Parathyroid Hormone Intact 72.4 pg/mL (8.7-77.1)
[2023-09-30 17:04] LABS: Alanine Aminotransferase 15 U/L (0-31); Albumin Level 4.5 g/dL (3.5-5.0); Alkaline Phosphatase 107 U/L (39-117); Anion Gap 22 (12-20); Aspartate Amino Transferase 20 U/L (5-31); Bilirubin Total 0.6 mg/dL (0.0-1.0); Blood Urea Nitrogen 14 mg/dL (9-16); Calcium 10.2 mg/dL (8.4-10.2); Carbon Dioxide 27 mmol/L (22-29); Chloride 101 mmol/L (96-108); Estimated Glomerular Filt Rate > 60; Glucose Random 92 mg/dL (60-115); Potassium 4.5 mmol/L (3.3-5.1); Sodium 145 mmol/L (135-145); Total Protein 7.8 g/dL (6.5-8.0)
[2023-09-30 17:23] LABS: Vitamin D 25-OH Total 35.8 ng/mL (>30)
== END 2023-09-30 13:40 | disposition home or self-care (01) ==
LOC: HO.HHCL 13:39
PROVIDERS: Visit Provider Internal Medicine Geriatric Medicine
DX: E55.9 Vitamin D deficiency, unspecified (principal); E11.9 Type 2 diabetes mellitus without complications
CPT/HCPCS: 36415; 80053; 82306; 83970

== ENCOUNTER 2024-02-24 13:35 | Outpatient (REF) | payer MEDICARE, MEDICAID, SELFPAY ==
--- NOTE | ~2024-02-24 | MM_ITS ---
EXAMINATION: MM SCREENING DIGITAL BREAST TOMOSYNTHESIS, BILATERAL CLINICAL INFORMATION: Screening. Asymptomatic. COMPARISON: Mammography: Comparison is made with available priors TECHNIQUE: Digital breast mammography with tomosynthesis is performed in both the craniocaudal and mediolateral oblique views along with computer-aided detection (CAD). FINDINGS: There are scattered areas of fibroglandular density (ACR BI-RADS breast composition Category b). There are no significant masses, abnormal calcifications, or other abnormalities. MM/MM tomosynthesis screening BI IMPRESSION: No mammographic evidence of malignancy. ASSESSMENT: BI-RADS BI-RADS 1 - Negative RECOMMENDATION: Routine annual mammography screening. 1 year F/U This examination should not preclude the clinical evaluation of a suspicious palpable abnormality. This patient's information was entered into a reminder system with a target due date for their next mammogram. Electronically signed by: Charley Parks DO 03/07/2024 12:27 PM EDT
== END 2024-02-24 13:36 | disposition home or self-care (01) ==
LOC: HO.MAMMO 13:35
PROVIDERS: PCP Internal Medicine Geriatric Medicine; Visit Provider Internal Medicine Geriatric Medicine
DX: Z12.31 Encounter for screening mammogram for malignant neoplasm of breast (principal)
CPT/HCPCS: 77063; 77067

== ENCOUNTER → 2024-02-24 13:45 | Outpatient (BNV) | payer MEDICARE, MEDICAID, SELFPAY | PROVIDERS: PCP Internal Medicine Geriatric Medicine; Visit Provider Internal Medicine | DX: Z12.31 Encounter for screening mammogram for malignant neoplasm of breast (principal) | CPT/HCPCS: 77063; 77067 ==

== ENCOUNTER 2024-07-11 11:04 | Outpatient (REF) | payer MEDICARE, SELFPAY ==
--- NOTE | ~2024-07-11 | MM_ITS ---
EXAMINATION: DXA BONE DENSITY AXIAL HISTORY: Estrogen deficiency TECHNIQUE: Software 2000 Dual energy absorptiometry (DEXA) of the lumbar spine, total left hip, and femoral neck was performed. COMPARISON: There are no prior studies for comparison. FINDINGS: The bone mineral density of the lumbar spine is 1.347 with a T-score of 1.4, and a Z-score of 1.9. The bone mineral density of the left total hip is 0.925 with a T-score of -0.7, and a Z-score of -0.2. The bone mineral density of the left femoral neck is 0.834 with a T-score of -1.5, and a Z-score of -0.6. FRACTURE RISK: The FRAX index suggests a risk of major osteoporotic fracture of 4.8%, and of hip fracture 0.5%. MM/XR DEXA axial skeleton IMPRESSION: Based on bone mineral density, and according to World Health Organization (WHO) criteria, the diagnosis is consistent with osteopenia. All bone density values are in grams per centimeter squared (g/cm2). Statistically, 68% of repeat scans fall within 1 SD (+/- 0.010 g/cm2 for AP spine L1-L4) and 1 SD (+/- 0.012 g/cm2 for femur total) FRAX is a trademark of the [employer]'s [place] for Metabolic Bone Disease, a World Health Organization (WHO) Collaborating Center. Electronically signed by: Iggy Sam MD 07/14/2024 07:27 AM EST
--- OUTSIDE RECORDS SUMMARY | 2024-07-11 13:51 | XMS_ITS | Encounter Summary ---
Author Organization [employer] Address [address] [facility] [address] [place] [address] Care Team Providers Care Skimmer Name Role Phone Name, Ion LAUREANO Primary Care Provider [phone] Reason for Visit * Reason Onset Date Comments Med Refill Medication Question 07/05/2024 Patient walk ed in stating she is confused on one of her meds Dulera was changed to Breo Ellipta. The Dulera was 2 times in the morning and 2 times in the afternoon. The new med Breo Ellipta says one puff daily patient wants more information on what to do exactly with med since the Dulera she was using it for a while. Encounter Details Date Type Department Care Team (Late st Contact Info) Description 07/05/2024 Refill [facility] [address] [place], [place] [phone] Name, MD Ion [address] [place], [place] [phone] Runny nose Social History Tobacco Use Types Packs/Day Years Used Date Smoking Tobacco: Never Passive Smoke Exposure: Never Smokeless Tobacco: Never Alcohol Use Standard Drinks/Week Comments Never 0 (1 standard drink = 0.6 oz pur e alcohol) Depression Answer Date Recorded Patient Health Questionnaire-9 Score 4 09/24/2023 Patient Health Questionnaire-9 Score 4 09/24/2023 Last PHQ-9: Questionnaire Data Not on file 0 09/24/2023 Housing Stability Answer Date Recorded What is your housing situation today? I have yosi alfredo 04/25/[address] you li ve. Do you have problems with any of the following? None of the above 04/25/2024 Food Insecurity Answer Date Recorded Within the past 12 months, y ou worried that your food would run out before you got money to buy more: Never True 04/25/2024 Within the past 12 months,th e food you bought just didn't last and you didn't have enough money to get more: Never True Transportation Answer Date Recorded In the past 12 months, has l ack of transportation kept you from medical appts, meetings, work or from getting things needed for daily living? No 04/25/2024 Utilities Answer Date Recorded In the past 12 months, has t he [employer] gas, oil or water [employer] threatened to shut off services in your home? No 04/25/2024 Depression Answer Date Recorded Patient Health Questionnaire-2 Score 1 09/24/2023 Internet Access Answer Date Recorded Internet Access Q1 Yes 04/25/2024 Internet Access Q2 Not on file 04/25/2024 Comments Unknown Sex and Gender Information Value Date Recorded Sex Assigned at Female 03/09/2022 10:19 AM EDT Legal Sex Female 10:19 AM EDT Gender Identity Female 03/09/2022 10:19 AM EDT Sexual Orientation Straight 03/09/2022 10 :19 AM EDT documented as of this encounter Miscellaneous Notes * Telephone Encounter - Aruna Kraus RN - 07/05/2024 2:25 PM EST T/C to pt. Advised that Breo Ellipta was rx with directions to take once per day. Reviewed directions per stopper setter. Pt states that she has not yet started to use Breo Ellipta. Pt asking what to do if she experiences sob while she is using new inhaler. Recommended that pt call clinic if symptomatic. Advised pt that pharmacy is able to help if pt has further questions about the medications. Pt reports agreement with plan. * Telephone Encounter - Svetlana Craig - 07/05/2024 11:12 AM EST Patient walked in stating she is confused on one of her meds Dulera was changed to Breo Ellipta. The Dulera was 2 times in the morning and 2 times in the afternoon. The new med Breo Ellipta says one puff daily patient wants more information on what to do exactly with med since the Dulera she was using it for a while. documented in this encounter Plan of Treatment Upcoming Encounters Date Type Department Care Team (Late st Contact Info) Description 08/29/2024 11:15 AM EDT Office Visit [facility] [address] [place] [address] Name, MD Ion [address] [place] [address] documented as of this encounter Visit Diagnoses Diagnosis Runny nose Other diseases of nasal cavity and sinuses documented in this encounter Additional Health Concerns Assessment Noted Time PHQ-9 Depression Total Score: 4 09/24/19 24 11:33 AM EDT documented as of this encounter Care Teams Skimmer Relationship Specialty Start Date End Date Name, MD Ion [address] [place] [phone] PCP - General Family Medicine 05/12/17 documented as of this encounter
--- OUTSIDE RECORDS SUMMARY | 2024-07-11 13:51 | XMS_ITS | Encounter Summary ---
Author Organization [employer] Address [address] [place] [address] Care Team Providers Care Commercial Loan Assistant Name Role Phone Name, Ion LAUREANO Primary Care Provider [phone] Encounter Details Date Type Department Care Team ([facility] st Contact Info) Description 05/07/2023 Orders Only [facility] [address] [place], [place] [phone] Peri Garcia MD [address] [place] [address] Social History Tobacco Use Types Packs/Day Years Used Date Smoking Tobacco: Never Smokeless Tobacco: Never Alcohol Use Standard Drinks/Week Comments Never 0 (1 standard drink = 0.6 oz pur e alcohol) Depression Answer Date Recorded Patient Health Questionnaire-9 Score 7 08/31/2022 Housing Stability Answer Date Recorded What is your housing situation today? I have yosi alfredo 02/26/[address] you li ve. Do you have problems with any of the following? None of the above 02/26/2023 Food Insecurity Answer Date Recorded Within the past 12 months, y ou worried that your food would run out before you got money to buy more: Never True 02/26/2023 Within the past 12 months,th e food you bought just didn't last and you didn't have enough money to get more: Never True Transportation Answer Date Recorded In the past 12 months, has l ack of transportation kept you from medical appts, meetings, work or from getting things needed for daily living? No 02/26/2023 Utilities Answer Date Recorded In the past 12 months, has t he [employer], gas, oil or water [employer] threatened to shut off services in your home? No 02/26/2023 Depression Answer Date Recorded Patient Health Questionnaire-2 Score 2 08/31/2022 Comments Unknown Sex and Gender Information Value Date Recorded Sex Assigned at Female 03/09/2022 10:19 AM EDT Legal Sex Female 10:19 AM EDT Gender Identity Female 03/09/2022 10:19 AM EDT Sexual Orientation Straight 03/09/2022 10 :19 AM EDT documented as of this encounter Plan of Treatment Upcoming Encounters Date Type Department Care Team (Late st Contact Info) Description 08/29/2024 11:15 AM EDT Office Visit [facility] [address] [place] [phone] Name, MD Ion [address] [place] [phone] documented as of this encounter Visit Diagnoses Not on filedocumented in this encounter Additional Health Concerns Assessment Noted Time PHQ-9 Depression Total Score: 7 09/01/19 23 10:47 AM EDT documented as of this encounter Care Teams Commercial Loan Assistant Relationship Specialty Start Date End Date Name, MD Ion [address] [place] [phone] PCP - General Family Medicine 05/12/17 documented as of this encounter
--- OUTSIDE RECORDS SUMMARY | 2024-07-11 13:51 | XMS_ITS | Encounter Summary ---
Author Organization [employer] Address [address] [place] [address] Care Team Providers Care Automation Clerk Name Role Phone NameIon MD Primary Care Provider [phone] Encounter Details Date Type Department Care Team (Late st Contact Info) Description 06/11/2022 Orders Only [facility] PEDS [address] [place], [place] [phone] Alaina Del Cid LPN Social History Tobacco Use Types Packs/Day Years Used Date Smoking Tobacco: Never Assessed Comments Unknown Sex and Gender Information Value [...] Description 08/29/2024 11:15 AM EDT Office Visit [facility] [address] [place], [place] [phone] Name, MD Ion [address] [place] [address] documented as of this encounter Procedures Procedure Name Priority Date/Time Associated Diagnosis Comments ALBUMIN, RANDOM URINE W/CREATININE Routine 02/16/2023 8:50 AM EDT HIGH SENSITIVITY TROPONIN I Routine 08/06/2022 1:25 PM EDT CBC WITH AUTO DIFFERENTIAL Routine 08/06/2022 1:25 PM EDT B TYPE NATRIURETIC PEPTIDE (BNP) Routine 08/06/2022 1:25 PM EDT BASIC METABOLIC PANEL Routine 08/06/2022 1:25 PM EDT documented in this encounter Results * Albumin, Random Urine W/Creatinine (02/16/2023 8:50 AM EDT) Creatinine, Urine 27.38 mg/dL [facility] Microalbumin Urine <5.0 mg/L [facility] Microalbum Creatinine Ratio Ur TNP <30 ug/mg cr [facility] Comment:Unable to calculate albumin/creatinine ratio due to lowmicroalbumin or creatinine result. 02/16/2023 8:50 AM EDT 02/16/2023 11:26 AM EDT Ion Faulkner MD LAB URINE ORDERABLES Final Resul t Performing Organization Address City/[facility]/ZIP Co de Phone Number [facility] [address] [place] [phone] * HIGH SENSITIVITY TROPONIN I (08/06/2022 1:25 PM EDT) Pathologist [facility] TROPONIN I HIGH SENSITIVITY <3.5 <3.5 - 17.0 ng/L [facility] Comment:The Rubin high sens itivity Troponin-I results should beused in conjunction with other diagnostic information suchas ECG, clinical observations and information, and patientsymptoms to aid in the diagnosis of ID. 08/06/2022 1:25 PM EDT 08/06/2022 1:28 PM EDT [facility] External Provider LAB BLO OD ORDERABLES Final Result Performing Organization Address City/[facility]/ZIP Co de Phone Number [facility] [address] [place] [phone] * B Type Natriuretic Peptide (BNP) (08/06/2022 1:25 PM EDT) B Type Natriuretic Peptide 10 <100 pg/mL [facility] Comment:For those patients w ho are being treated with Natrecor(nesiritide, recombinant BNP), BNP testing should beperformed at least two hours post treatment in order toensure that only endogenous levels of BNP are detected. 08/06/2022 1:25 PM EDT 08/06/2022 1:28 PM EDT us [facility] External Provider LAB BLO OD ORDERABLES Final Result [facility] [address] [place] [address] [phone] * (ABNORMAL) Basic Metabolic Panel (08/06/2022 1:25 PM EDT) Pathologist [facility] Sodium 143 135 - 145 mmol/L [facility] Potassium 3.6 3.3 - 5.1 mmol/L [facility] Chloride 99 96 - 108 mmol/L [facility] Carbon Dioxide 30(H) 22 - 29 mmol/L [facility] Anion Gap 18 12 - 20 [facility] Urea Nitrogen (BUN) 17(H) 9 - 16 mg/dL [facility] Creatinine, Serum 0.83 0.5 - 1.4 mg/dL [facility] Creatinine Clr Calc Pharmacy 81.4 [facility] Comment:Provided height and weight: 167.64 cm,102 kg.eGFR (calculated from the MDRD study equation) and eCrCl(calculated from the Cockcroft-Gault equation) are based ondifferent parameters and may not yield comparable results.If eCrCl result is absurd, please check patient'sheight/weight. Estimated Glomerular Filt Rate >60 [facility] Comment:NOTE: For -Am erican individuals, multiply the result by 1.210.Chronic Kidney Disease: Estimated GFR < 60 mL/min/1.63m3Ieeifr Kidney Disease: Estimated GFR < 15 mL/min/1.73m2 Glucose 145(H) 60 - 115 mg/dL [facility] Calcium 9.6 8.4 - 10.2 mg/dL [facility] 08/06/2022 1:25 PM EDT 08/06/2022 1:28 PM EDT [facility] External Provider LAB BLO OD ORDERABLES Final Result [facility] [address] [place] [phone] * (ABNORMAL) CBC auto differential (08/06/2022 1:25 PM EDT) White Blood Count 10.7 4.8 - 10.8 X10*3/uL [facility] Red Blood Count 4.61 4.20 - 5.50 X10*6/uL [facility] Hemoglobin 13.1 12.0 - 16.0 g/dl [facility] Hematocrit 39.9 37.0 - 47.0 % [facility] Mean Corpuscular Volume 86.6 80.0 - 98.0 fL [facility] Mean Corpuscular Hemoglobin 28.4 27.0 - 33.0 pg [facility] Mean Corpuscular HGB Conc 32.8 31.0 - 35.0 g/dl [facility] Red Cell Distribution Width 13.6 11.0 - 16.0 % [facility] Platelet Count 333 160 - 400 X10*3/uL [facility] Mean Platelet Volume 8.9(L) 9.4 - 12.3 fL [facility] Neutrophils Percent Auto 47.8 45 - 73 % [facility] Imm Gran Pct Auto 0.3 0.0 - 0.4 % [facility] Lymphocytes Percent Auto 30.3 20 - 40 % [facility] Monocytes Percent Auto 9.9 2 - 11 % [facility] Eosinophils Percent Auto 10.9(H) 0 - 4 % [facility] Basophils Percent Auto 0.8 0 - 2 % [facility] NRBC Pct Auto 0.0 0.0 - 0.2 /100WBC [facility] Neutrophils Absolute Auto 5.1 2.0 - 8.3 x10*3/uL [facility] Imm Gran Abs Auto 0.03 0.00 - 0.03 X10*3/uL [facility] Lymphocytes Absolute Auto 3.3 1.2 - 4.9 X10*3/uL [facility] Monocytes Absolute Auto 1.1 0.1 - 1.2 X10*3/uL [facility] Eosinophils Absolute Auto 1.2(H) 0.0 - 0.4 X10*3/uL [facility] Basophils Absolute Auto 0.1 0.0 - 0.2 X10*3/uL [facility] NRBC Abs Auto 0.000 0.0 - 0.012 X10*3/uL [facility] 08/06/2022 1:25 PM EDT 08/06/2022 1:28 PM EDT us [facility] External Provider LAB BLO OD ORDERABLES Final Result [facility] [address] [place] [phone] documented in this encounter Visit Diagnoses Not on filedocumented in this encounter Care Teams Automation Clerk Relationship Specialty Start Date End Date Name, MD Ion [address] [place] [phone] PCP - General Family Medicine 05/12/17 documented as of this encounter
--- OUTSIDE RECORDS SUMMARY | 2024-07-11 13:51 | XMS_ITS | Encounter Summary ---
Author Organization [employer] Address [address] [place] [address] Care Team Providers Care Warehouse Assistant Name Role Phone Name, Ion LAUREANO Primary Care Provider [phone] Reason for Visit * Reason Onset Date Comments Med Refill 07/11/2024 Encounter Details Date Type Department Care Team ([facility] st Contact Info) Description 07/11/2024 Refill [facility] PEDS [address] [place], [place] [phone] Name, MD Ion [address] [place] [address] Runny nose Social History Tobacco Use Types [...] the past 12 months, has t he electric, gas, oil or water company threatened to shut off services in your [...] Description 08/29/2024 11:15 AM EDT Office Visit [facility] [address] [place] [phone] Name, MD Ion [address] [place] [phone] documented as of this encounter Visit Diagnoses Diagnosis Runny nose Other diseases of nasal cavity and sinuses documented in this encounter Additional Health Concerns Assessment Noted Time PHQ-9 Depression Total Score: 4 09/24/19 24 11:33 AM EDT documented as of this encounter Care Teams Warehouse Assistant Relationship Specialty Start Date End Date NameIon MD [address] [place] [phone] PCP - General Family Medicine 05/12/17 documented as of this encounter
--- OUTSIDE RECORDS SUMMARY | 2024-07-11 13:51 | XMS_ITS | Clinical Summary ---
Author Organization [employer] Address [address] [facility] [address] [place] [address] Care Team Providers Care Telephone Cleaner Name Role Phone Name, Ion LAUREANO Primary Care Provider [phone] Allergies Active Allergy Reactions Criticality Noted Date Comments Aspirin Rash Low 04/20/2017 Cephalexin Diarrhea 12/19/2018 Lisinopril Hives 12/19/2018 Medications FreeStyle lancets DIRECTED TO TEST BLOOD SUGAR THREE TIMES DAILY 05/17/19 23 Active albuterol (Ventolin HFA) 108 (90 Base) MCG/ACT inhaler INHALE 2 PUFFS BY MOUTH EVERY 4 TO 6 HOURS NEEDED 18 g 04/08/20 23 Active NIFEdipine CC (Adalat CC) 60 MG 24 hr tablet TAKE 1 TABLET BY MOUTH TWICE DAILY 180 tablet 3 12/14/19 24 Active atorvastatin (Lipitor) 20 MG tablet TAKE 1 TABLET BY MOUTH EVERY DAY 90 tablet 3 12/15/19 24 Active albuterol (2.5 MG/3ML) 0.083% nebulizer solution USE 3 ML VIA NEBULIZER EVERY 4 HOURS NEEDED FOR WHEEZING 90 mL 3 12/15/19 24 Active cholecalcifero l (Vitamin D-3) 125 MCG (5000 UT) capsule Take 1 capsule (125 mcg) by mouth Once per day. 30 capsule 11 01/19/20 24 025 Active Calcium Citrate-Vitami n D (Calcium Citrate + D) 250-5 MG-MCG tablet Take 2 tablets by mouth Once per day. 60 tablet 3 01/19/20 24 Active cyclobenzaprin e (Flexeril) 10 MG tabletIndicati ons:Chronic bilateral low back pain without sciatica Take 1 tablet (10 mg) by mouth if needed in the morning, at noon, and at bedtime for muscle spasms for up to 10 days. 30 tablet 01/19/20 24 Active Fluticasone Furoate-Vilant chon (Breo Ellipta) 100-25 MCG/ACT aerosol powder Inhale 1 Inhalation Once per day. 60 each 11 06/20/19 25 026 Active metFORMIN (Glucophage) 500 MG tablet TAKE 1 TABLET BY MOUTH TWICE DAILY WITH THE MORNING AND EVENING MEAL 180 tablet 1 07/06/19 25 Active fluticasone (Flonase) 50 MCG/ACT nasal sprayIndicatio ns:Runny nose Administer 2 sprays into each nostril Once per day. Shake gently. Before first use, prime pump. After use, clean tip and replace cap.USE 1 TO 2 SPRAYS IN EACH NOSTRIL IN THE MORNING. SHAKE GENTLY. 48 g 07/12/19 25 Active mometasone-for moterol (Dulera 200) 200-5 MCG/ACT inhaler Inhale 2 puffs in the morning and at bedtime. Rinse mouth with water after use to reduce aftertaste and incidence of candidiasis. Do not swallow. 13 g 11 07/29/19 24 025 Discontinued(Th erapy completed) metFORMIN (Glucophage) 500 MG tablet TAKE 1 TABLET BY MOUTH TWICE DAILY WITH THE MORNING AND EVENING MEAL 180 tablet 1 12/15/19 24 025 Discontinued(Re order (will not trigger notification to Pharmacy)) fluticasone (Flonase) 50 MCG/ACT nasal sprayIndicatio ns:Runny nose USE 1 TO 2 SPRAYS IN EACH NOSTRIL IN THE MORNING. SHAKE GENTLY. 48 g 04/10/20 24 025 Discontinued(Re order (will not trigger notification to Pharmacy)) Active Problems Problem Noted Date Diagnosed Date Venous stasis dermatitis, unspecified laterality 01/19/2024 Vitamin D deficiency 06/18/2023 Hyperparathyroidism, primary 06/18/2023 Lung mass 07/13/2017 Osteoarthritis of knee 06/03/2017 Calcification of lung 06/01/2017 Chronic low back pain 06/01/2017 Essential hypertension 06/01/2017 Knee pain 06/01/2017 Moderate persistent asthma 06/01/2017 Morbid obesity 06/01/2017 Type 2 diabetes mellitus without complication Hyperlipidemia 04/20/2017 Resolved Problems Problem Noted Date Diagnosed Date Resolved Date Diabetes mellitus type 2 in obese 07/13/2017 08/06/2022 Lung infiltrate 06/03/2017 08/06/2022 Diabetes mellitus 04/20/2017 08/06/2022 Hypertensive disorder 04/20/20172022 Encounters Date Type Department Care Team Description 07/11/2024 Refill [facility] [address] [place] [address] Name, MD Ion Runny nose 07/06/2024 Refill [facility] [address] [place] [phone] Ion Faulkner MD 07/05/2024 Refill [facility] [address] [place] [address] Ion Faulkner MD Runny nose 06/20/[address] [address] NameIon MD Prior Authorization (Dulera) 06/01/[address] [address] NameIon MD 04/25/2024 2:30 PM EST Office Visit [address] [address] Ion Faulkner MD Type 2 diabetes mellitus without complication, without long-term current use of insulin ([facility]) (Primary Dx); Screening for colon cancer; Vaccine refused by patient; Post menopausal problems; Osteoarthritis of lumbar spine, unspecified spinal osteoarthritis complication status; Essential hypertension 04/25/2024 Travel 04/24/[address] [address] Peg Taylor [place] Chart Prep from Last 3 Months Immunizations Name Administration Dates Next Due Influenza High-dose Quadrivalent Preservative Fr ee 02/12/2023,02/23/2022 Influenza injectable quadriv alent IIV4 with preservative 06/12/2019 Pfizer Covid-19 Vaccine 12+ 02/11/2021 Pneumococcal Polysaccharide PPSV23 06/01/2017 TD (adult), 2 Lf tetanus tox oid, preservative free, adsorbed 06/01/2017 Social History Tobacco Use Types Packs/Day Years Used Date Smoking Tobacco: Never Passive Smoke Exposure: Never Smokeless Tobacco: Never Tobacco Cessation:Counseling Given: Not Answered Alcohol Use Standard Drinks/Week Comments Never 0 [...] Orientation Straight 03/09/2022 10 :19 AM EDT Last Filed Vital Signs Vital Sign Reading Time Taken Comments Blood Pressure 146/78 04/25/2024 2:30 PM EST Pulse 102 04/25/2024 2:30 PM EST Temperature 35.8 ??C (96.4 ??F) 04/25/2024 2:30 PM ES T Respiratory Rate 18 04/25/2024 2:30 PM EST Oxygen Saturation 93% 01/19/2024 11:30 AM EDT Inhaled Oxygen Concentration - - Weight 107 kg (236 lb 9.6 oz) 04/25/2024 2:30 PM EST Height 167.6 cm (5' 6 ) 04/25/2024 2:30 PM EST Body Mass Index 38.19 04/25/2024 2:30 PM EST Plan of Treatment Upcoming Encounters Date Type Department Care Team (Late st Contact Info) Description 08/29/2024 11:15 AM EDT Office Visit [facility] [address] [place] [address] Name, MD Ion [address] [place] [address] Health Maintenance Due Date Last Done Comments CT Colonography 1955 Colonoscopy 1955 FIT 1955 Sigmoidoscopy 1955 Hepatitis C Screening 1974 Zoster Vaccines (1 of 2) 2006 RSV Patients and Patients Aged 60 years or older (1 - Risk 60-74 years 1-dose series) 2016 DTaP/Tdap/Td Vaccines (1 - Tdap) 06/02/2017 06/01/2017 Pneumococcal Vaccine: 50+ Years (2 of 2 - PCV) 06/01/2018 06/01/2017 COVID-19 Vaccine (3 - season) 2024 03/04/2021, 02/11/2021 Influenza Vaccine (#1) 2024 3, 02/23/2022, 06/12/2019 Lipid Panel 02/13/2024 02/12/2023, 07/03/2021 Diabetes: Urine Protein Screening 02/17/2024 02/16/2023, 07/03/2021, 06/20/2019 Depression Screening 09/23/2024 09/24/2023, 09/24/19 Diabetes: Hemoglobin A1C 10/24/2024 024, 09/24/2023, 02/12/2023, Additional history exists Diabetes: Foot Exam 01/18/2025 01/19/2024, 01/19/2024, 01/19/2024, Additional history exists Eye Exam 02/22/2025 02/22/2023 Alcohol/Substance Use Screening 04/25/2025 04/25/2024 SDOH Screening 04/25/2025 04/25/2024 Tobacco Screening 04/25/2025 04/25/2024 FOBT 05/16/2025 05/16/2024 Mammogram 02/23/2026 02/24/2024, 0711/2020, 11/29/2019, Additional history exists Colorectal Cancer Screening 05/16/2027 FIT DNA/Cologuard 05/16/2027 05/16/2024, 05/10/2024 Cervical Cancer Screening Discontinued HPV/Cotest Discontinued 11/09/2018 HIB Vaccines Aged Out No longer eligi ble based on patient's age to complete this topic HPV Vaccines Aged Out No longer eligi ble based on patient's age to complete this topic Hepatitis A Vaccines Aged Out No long er eligible based on patient's age to complete this topic Hepatitis B Vaccines Aged Out No long er eligible based on patient's age to complete this topic IPV Vaccines Aged Out No longer eligi ble based on patient's age to complete this topic Meningococcal Vaccine Aged Out No pat neeraj eligible based on patient's age to complete this topic Pap Smear Discontinued RSV under 20 months Aged Out No longe r eligible based on patient's age to complete this topic Rotavirus Vaccines Aged Out No longer eligible based on patient's age to complete this topic Procedures Procedure Name Priority Date/Time Associated Diagnosis Comments FIT DNA/COLOGUARD CANCER SCREENING Routine 05/16/2024 LAB COLOGUARD?? COLON CANCER SCREEN Routine 05/10/2024 4:00 PM EST Screening for colon cancer POCT GLYCATED HEMOGLOBIN, TOTAL Routine 04/25/2024 2:33 PM EST Type 2 diabetes mellitus without complication, without long-term current use of insulin (CMS/HCC) POCT GLUCOSE Routine 04/25/2024 2:33 PM EST Type 2 diabetes mellitus without complication, without long-term current use of insulin (CMS/HCC) BI MAMMOGRAM SCREENING TOMOSYNTHESIS BILATERAL Routine 02/24/2024 1:45 PM EDT HM DIABETES EYE EXAM Routine 02/22/2023 ALBUMIN, RANDOM URINE W/CREATININE Routine 02/16/2023 8:50 AM EDT LIPID PANEL, STANDARD Routine 02/12/2023 11:52 AM EDT Other specified diabetes mellitus without complications (CMS/HCC) Moderate persistent asthma without complication Runny nose Essential hypertension Calcification of lung ZZZ HISTORICAL HPV MRNA E6/E7 Routine 11/09/2018 2:41 PM EDT from Last 3 Months or Most Recently Relevant to Health Maintenance Results * FIT DNA/Cologuard Cancer Screening (05/16/2024) Cologuard Cancer Screen Negative Stool 05/16/2024 us Ionjennifer Faulkner MD HEALTH MAINTENANCE Final Result * Cologuard?? colon cancer screening (05/10/2024 4:00 PM EST) Cologuard Result Negative Negative 05/16/19 9:40 AM EST [facility] (CLIA #:[id number]) Comment: NEGATIVE TEST RESULT. A negative Cologuard result indicates a low likelihood that a colorectal cancer (CRC) or advanced adenoma (adenomatous polyps with more advanced pre-malignant features) ??is present. The chance that a person with a negative Cologuard test has a colorectal cancer is less than 1 in 1500 (negative predictive value >99.9%) or has an ??advanced adenoma is less than ??5.3% (negative predictive value 94.7%). These data are based on a prospective cross-sectional study of 10,000 individuals at average risk for colorectal cancer who were screened with both Cologuard and colonoscopy. (Contreras Watt al, N Engl J Med 2014;370(14):1286- 1297) The normal value (reference range) for this assay is negative. COLOGUARD RE-SCREENING RECOMMENDATION: Periodic colorectal cancer screening is an important part of preventive healthcare for asymptomatic individuals at average risk for colorectal cancer. ??Following a negative Cologuard result, the [place] Cancer Society and U.S. Multi-Society Task Force screening guidelines recommend a Cologuard re-screening interval of 3 years. References: [place] Cancer Society Guideline for Colorectal Cancer Screening: https://www.cancer.org/cancer/whkxz-eeaksu-phviie/kuqsyznyv-egqfgoaxq-unggmbr/ac s-rec ommendations.html.; Davian DK, Zach HANDY, Xi YanesK, Colorectal Cancer Screening: Recommendations for Physicians and Patients from the U.S. Multi-Society Task Force on Colorectal Cancer Screening , Am J Gastroenterology 2017; 112:7478-7375. TEST DESCRIPTION: Composite algorithmic analysis of stool DNA-biomarkers with hemoglobin immunoassay. ?? Quantitative values of individual biomarkers are not reportable and are not associated with individual biomarker result reference ranges. Cologuard is intended for colorectal cancer screening of adults of either sex, 45 years or older, who are at average-risk for colorectal cancer (CRC). Cologuard has been approved for use by the U.S. FDA. The performance of Cologuard was established in a cross sectional study of average-risk adults aged 50-84. Cologuard performance in patients ages 45 to 49 years was estimated by sub-group analysis of near-age groups. Colonoscopies performed for a positive result may find as the most clinically significant lesion: colorectal cancer [4.0%], advanced adenoma (including sessile serrated polyps greater than or equal to 1cm diameter) [20%] or non- advanced adenoma [31%]; or no colorectal neoplasia [45%]. These estimates are derived from a prospective cross-sectional screening study of 10,000 individuals at average risk for colorectal cancer who were screened with both Cologuard and colonoscopy. (Contreras Watt al, N Engl J Med 2014;370(14):5419-8462.) Cologuard may produce a false negative or false positive result (no colorectal cancer or precancerous polyp present at colonoscopy follow up). A negative Cologuard test result does not guarantee the absence of CRC or advanced adenoma (pre-cancer). The current Cologuard screening interval is every 3 years. ([employer] Cancer Society and U.S. Multi-Society Task Force). Cologuard performance data in a 10,000 patient pivotal study using colonoscopy as the reference method can be accessed at the following location: www.[employer].Original/results. Additional description of the Cologuard test process, warnings and precautions can be found at www.cologScuttledogrd.com. Stool specimen (specimen) 05/10/2024 4:00 PM EST 05/12/2024 1:00 PM EST us Ion Faulkner MD LAB MOLECULAR DIAGNOSTICS ORDERA BLES Final Result [facility] (CLIA #:[id number]) [place] [address], * (ABNORMAL) POCT HGB A1C (04/25/2024 2:33 PM EST) Hemoglobin A1C 6.4(A) 4.0 - 6.0 % QC Media Lot # [id number] Lot# Expiration Date ,026 Blood 04/25/2024 2:33 PM EST us Ion Faulkner MD POINT OF CARE TEST ENTER/EDIT OR DERABLES Final Result * POCT Glucose (04/25/2024 2:33 PM EST) Glucose Blood, POC 110 60 - 200 mg/dL QC Media Lot # [id number] Lot# Expiration Date 6172,025 Blood Capillary blood specimen / Unknown 04/25/2024 2:33 PM EST us Ion Faulkner MD POINT OF CARE TEST ENTER/EDIT OR DERABLES Final Result * BI Mammogram Screening Tomosynthesis Bilateral (02/24/2024 1:45 PM EDT) Anatomical Region Laterality Modality Breast Bilateral Mammography 02/24/2024 1:45 PM EDT Narrative 03/07/2024 12:30 PM EDT ? [facility] ? [address] ?[place] [address] ? Mammography Report ? Signed with Addenda ? Patient: Worley,Kamryn M ?MR#: [id number] ? : 1955 ?Acct:[id number] ? Age/Sex: 68 / F ?ADM Date: 02/23/ ? Loc: HO.MAMMO ? Attending : Ion Name MD ? Ordering Physician: Name,Ion LAUREANO ?Results: 1Negative ? Date of Service: 02/24/24 ?Follow Up: 1 Year From Orig ?? inal Mammogram ? Procedure(s): MM tomosynthesis screening BI ?? Accession Number(s): [id number] ? cc: Name,Ion MD ?ADDENDUM ? ADDENDUM #1 ? ADDENDUM: ?? Due to a software issue related to the original report, this case has ?? been reviewed again and the original findings and recommendations ?? remain the same. ? OVERALL ASSESSMENT: ?? BI-RADS 1 - Negative ? RECOMMENDATION: ?? 1 year F/U ? Electronically signed by: ??Charley Parks DO ??03/10/2024 10:25 AM EDT ?? RP ? Addendum Dictated By: ?Charley Parks, DO ? Addendum Signed By: ? <Electronically signed by Charley Parks, DO in OV> ? 03/10/24 1025 ?? Addendum Cosigned By: ? DD/ ? TD/TT: 02/24/24 ? EXAMINATION: ?? MM SCREENING DIGITAL BREAST TOMOSYNTHESIS, BILATERAL ? CLINICAL INFORMATION: ? Screening. Asymptomatic. ? COMPARISON: ?? Mammography: Comparison is made with available priors ? TECHNIQUE: ?? Digital breast mammography with tomosynthesis is performed in both the ?? craniocaudal and mediolateral oblique views along with computer-aided ?? detection (CAD). ? FINDINGS: ?? There are scattered areas of fibroglandular density (ACR BI-RADS breast ?? composition Category b). ? There are no significant masses, abnormal calcifications, or other ?? abnormalities. ? MM/MM tomosynthesis screening BI ?? IMPRESSION: ?? No mammographic evidence of malignancy. ? ASSESSMENT: ? BI-RADS BI-RADS 1 - Negative ? RECOMMENDATION: ?? Routine annual mammography screening. ? 1 year F/U ? This examination should not preclude the clinical evaluation of a ?? suspicious palpable abnormality. ? This patient's information was entered into a reminder system with a ?? target due date for their next mammogram. ? Electronically signed by: ??Charley Parks DO ??03/07/2024 12:27 PM EDT ? Dictated By: ?Charley Parks DO ? Signed By: ?<Electronically signed by Charley Parks, DO in OV> ? 03/07/24 1227 ? DD/ 1345 ? TD/TT: 02/24/24 1401 ? Clinical Veterinarian: ? Procedure Note Zeny, Lorraine - 03/10/2024 [facility] [address] [place] [address] Dr. Liu, LILIAM [address] Mammography Report Signed with Yuni Patient: Kamryn Worley MMR#: [id number] : 7Acct:[id number] Age/Sex: 68 / FADM Date: 02/24/24 Loc: JOSE.HELDERO Attending Dr: Ion Faulkner MD Ordering Physician: Ion Faulkneresults: 1Negative Date of Service: 02/24/24Follow Up: 1 Year From Orig inal Mammogram Procedure(s): MM tomosynthesis screening BI Accession Number(s): [id number] cc: Name,Ion LAUREANO ADDENDUM ADDENDUM #1 ADDENDUM: Due to a software issue related to the original report, this case has been reviewed again and the original findings and recommendations remain the same. OVERALL ASSESSMENT: BI-RADS 1 - Negative RECOMMENDATION: 1 year F/U Electronically signed by: Charley Parks DO 03/10/2024 10:25 AM EDT RP Addendum Dictated By: Charley Parks DO Addendum Signed By: <Electronically signed by DO Luana in OV> 03/10/24 1025 Addendum Cosigned By: DD/ TD/TT: 02/24/24 EXAMINATION: MM SCREENING DIGITAL BREAST TOMOSYNTHESIS, BILATERAL CLINICAL INFORMATION: Screening. Asymptomatic. COMPARISON: Mammography: Comparison is made with available priors TECHNIQUE: Digital breast mammography with tomosynthesis is performed in both the craniocaudal and mediolateral oblique views along with computer-aided detection (CAD). FINDINGS: There are scattered areas of fibroglandular density (ACR BI-RADS breast composition Category b). There are no significant masses, abnormal calcifications, or other abnormalities. MM/MM tomosynthesis screening BI IMPRESSION: No mammographic evidence of malignancy. ASSESSMENT: BI-RADS BI-RADS 1 - Negative RECOMMENDATION: Routine annual mammography screening. 1 year F/U This examination should not preclude the clinical evaluation of a suspicious palpable abnormality. This patient's information was entered into a reminder system with a target due date for their next mammogram. Electronically signed by: Charley Parks DO 03/07/2024 12:27 PM EDT RP Dictated By: Charley Parks DO Signed By: <Electronically signed by Charley Parks DO in OV> 03/07/24 1227 DD/ 44 TD/TT: 02/24/24 1401 Clinical Veterinarian: Ion Faulkner MD [facility] BI PROCEDURES Edited Result - Final * Hm Diabetes Eye Exam (02/22/2023) Eye Exam Normal Normal us Ion Faulkner MD HEALTH MAINTENANCE Final Result * Albumin, Random Urine W/Creatinine (02/16/2023 8:50 AM EDT) Creatinine, Urine 27.38 mg/dL [facility] Microalbumin Urine <5.0 mg/L [facility] Microalbum Creatinine Ratio Ur TNP <30 ug/mg cr [facility] Comment:Unable to calculate albumin/creatinine ratio due to lowmicroalbumin or creatinine result. 02/16/2023 8:50 AM EDT 02/16/2023 11:26 AM EDT us Ion Faulkner MD LAB URINE ORDERABLES Final Resul t [facility] [address] [place] [phone] * Lipid Panel, Standard (02/12/2023 11:52 AM EDT) Triglycerides 103 <150 mg/dL [facility] Comment:Desirable Triglyceri de: less than 150 mg/dLBorderline High Triglyceride 150-199 mg/dLHigh Triglyceride: 200-499 mg/dLVery High Triglyceride: greater than or equal to 5OO mg/dL Cholesterol 122 <200 mg/dL [facility] Comment:Desirable Cholestero l: less than 200 mg/dLBorderline High Cholesterol: 200-239 mg/dLHigh Cholesterol: greater than 239 mg/dL LDL Cholesterol Calculated 43 <100 mg/dL [facility] Comment:Desirable LDL: less than 100 mg/dLNear Optimal/Above Optimal LDL: 110- 129 mg/dLBorderline High LDL: 130-159 mg/dLHigh LDL: 160-189 mg/dLVery High LDL: greater than or equal to 190 mg/dL HDL Cholesterol 59 >40 mg/dL [facility] Comment:Desirable HDL: great er than 40 mg/dL Note: This HDL assay may give artificially low results in patients with liver disease. Blood Venous blood specimen / Unknown 02/12/2023 11:52 AM EDT 02/12/2023 1:14 PM EDT Ion Faulkner MD LAB BLOOD ORDERABLES Final Resul t [facility] [address] [place] [phone] * HPV mRNA E6/E7 (11/09/2018 2:41 PM EDT) HPV mRNA E6/E7 Not Detected NOT DETECTED [facility] Comment: This test was performed using the APTIMA(R) HPV Assay ([employer] This assay detects E6/E7 viral messenger RNA (mRNA) from 14 high-risk HPV types (16,18,31,33,35,39,45,51, 52,56,58,59,66,68). For additional information please refer to: http://education.[employer]. [employer]/faq/RBV917l4 (This link is being provided for informational/ educational purposes only.) The analytical performance characteristics of this assay have been determined by [employer] [place], [place]. The modifications have not been cleared or approved by the FDA. This assay has been validated pursuant to the CLIA regulations and is used for clinical purposes. [facility], [facility], [address] [place] [address] Ortiz Taylor M.D., Ph.D., Director of Laboratories , CLIA [id number] Please note: ??Effective 01/20/2016, HPV testing will be performed using [employer]'s APTIMA test which targets mRNA. Detecting mRNA instead of DNA, as in older methods, offers significant improvements in specificity. 11/09/2018 2:41 PM EDT Zhanna Harrell CNM HISTORICAL/NON ORDERABLE LABS Final Result [facility] [address] from Last 3 Months or Most Recently Relevant to Health Maintenance Insurance [facility] STANDARD MEDICARE Member Subscriber Plan / Payer ( fective 2022-Present) Name:Kamryn Worley Member ID:[id number] Relation to Subscriber:Self Name:Kamryn Worley Subscriber ID:[id number] Payer ID:STATE Group ID:Not on file Type:Medicare Address: [facility], [facility]. [address] [address] Care Teams Telephone Cleaner Relationship Specialty Start Date End Date Name, MD Ion [address] [place] [address] PCP - General Family Medicine 05/12/17
--- OUTSIDE RECORDS SUMMARY | 2024-07-11 13:51 | XMS_ITS | Encounter Summary ---
Author Organization [employer] Address [address] [facility] [address] [place] [address] Care Team Providers Care Facs Teacher Name Role Phone Name, Ion LAUREANO Primary Care Provider [phone] Reason for Visit * Reason Comments Med Refill Encounter Details Date Type Department Care Team ([facility] st Contact Info) Description 03/16/2024 Refill [facility] [address] [place], [place] [id number] Name, MD Ion [address] [place] [address] Social History Tobacco Use Types Packs/Day Years [...] Recorded Patient Health Questionnaire-2 Score 1 09/24/2023 Comments Unknown Sex and Gender Information Value [...] Description 08/29/2024 11:15 AM EDT Office Visit [facility] [address] [place] [phone] Name, MD Ion [address] [place] [phone] documented as of this encounter Visit Diagnoses Not on filedocumented in this encounter Additional Health Concerns Assessment Noted Time PHQ-9 Depression Total Score: 4 09/24/19 24 11:33 AM EDT documented as of this encounter Care Teams Facs Teacher Relationship Specialty Start Date End Date Name, MD Ion [address] [place] [phone] PCP - General Family Medicine 05/12/17 documented as of this encounter
--- OUTSIDE RECORDS SUMMARY | 2024-07-11 13:51 | XMS_ITS | Encounter Summary ---
Author Organization [employer] Address [address] [facility] 7t [place] [address] Care Team Providers Care Terminal Block Assembler Name Role Phone Name, Ion LAUREANO Primary Care Provider [phone] Reason for Visit * Reason Onset Date Comments Med Refill 07/06/2024 Encounter Details Date Type Department Care Team ([facility] st Contact Info) Description 07/06/2024 Refill [facility] [address] [place], [place] [phone] Name, MD Ion [address] [place] [address] Social History Tobacco Use Types Packs/Day Years [...] encounter Miscellaneous Notes * Telephone Encounter - Alaina Del Cid LPN - 07/06/2024 11:01 AM EST Next appointment 08/29/24. * Telephone Encounter - Yon Morales - 07/06/2024 10:57 AM EST TC from pt requesting medication refill. Medications needing refill : metFORMIN (Glucophage) 500 MG tablet [facility]: [id number] [address] [place] [address] AT [facility] documented in this encounter Plan of Treatment Upcoming Encounters Date Type Department Care Team (Late st Contact Info) Description 08/29/2024 11:15 AM EDT Office Visit [facility] [address] [place] [address] Name, MD Ion [address] [place] [address] documented as of this encounter Visit Diagnoses Not on filedocumented in this encounter Additional Health Concerns Assessment Noted Time PHQ-9 Depression Total Score: 4 09/24/19 24 11:33 AM EDT documented as of this encounter Care Teams Terminal Block Assembler Relationship Specialty Start Date End Date Name, MD Ion [address] [place] [address] PCP - General Family Medicine 05/12/17 documented as of this encounter
--- OUTSIDE RECORDS SUMMARY | 2024-07-11 13:51 | XMS_ITS | Encounter Summary ---
Author Organization [employer] Address [address] [facility] 7t [place] [address] Care Team Providers Care Diabetes Physician Name Role Phone Name, Ion LAUREANO Primary Care Provider [phone] Reason for Visit * Reason Comments Med Refill Encounter Details Date Type Department Care Team ([facility] st Contact Info) Description 05/11/2023 Refill [facility] [address] [place], [place] [phone] Name, MD Ion [address] [place], [place] [phone] Runny nose Social History Tobacco Use Types [...] t he electric, gas, oil or water [email or web address] threatened to shut off services in your [...] Description 08/29/2024 11:15 AM EDT Office Visit [facility] [address] [place] [phone] Name, MD Ion [address] [place] [phone] documented as of this encounter Visit Diagnoses Diagnosis Runny nose Other diseases of nasal cavity and sinuses documented in this encounter Additional Health Concerns Assessment Noted Time PHQ-9 Depression Total Score: 7 09/01/19 23 10:47 AM EDT documented as of this encounter Care Teams Diabetes Physician Relationship Specialty Start Date End Date Name, MD Ion [address] [place] [phone] PCP - General Family Medicine 05/12/17 documented as of this encounter
--- OUTSIDE RECORDS SUMMARY | 2024-07-11 13:51 | XMS_ITS | Encounter Summary ---
Author Organization [employer] Address [address] [facility] 7t [place] [address] Care Team Providers Care District Operations Manager Name Role Phone Name, Ion LAUREANO Primary Care Provider [phone] Reason for Visit * Reason Onset Date Comments Prior Authorization 06/20/2024 [employer] Encounter Details Date Type Department Care Team ([facility] Contact Info) Description 06/20/2024 Telephone [facility] [address] [place], [place] [phone] Name, MD Ion [address] [place] [address] Prior Authorization ([employer]) Social History Tobacco Use Types Packs/Day Years [...] as of this encounter Miscellaneous Notes * Addendum Note - Ion Hawkins MD - 06/20/2024 12:42 PM ESTAddended by: ION HAWKINS on: 06/20/2024 12:42 PM Modules accepted: Orders * Telephone Encounter - Ion Hawkins MD - 06/20/2024 12:40 PM EST No PA, I will send the Breo instead. Please let her know * Telephone Encounter - Isabel Nath - 06/20/2024 11:58 AM EST PA request received for Dulera 200 mcg-5 mcg inhaler. Drug not on formulary. Alternative medications that are covered include: Breo Ellipta, Breyna and Advair HFA. Please advise if changing med or ifwish to proceed with PA. Thank you documented in this encounter Plan of Treatment Upcoming Encounters Date Type Department Care Team (Late st Contact Info) Description 08/29/2024 11:15 AM EDT Office Visit [facility] [address] [place] [phone] Ion Hawkins, MD [address] [place] [address] documented as of this encounter Visit Diagnoses Not on filedocumented in this encounter Additional Health Concerns Assessment Noted Time PHQ-9 Depression Total Score: 4 09/24/19 24 11:33 AM EDT documented as of this encounter Care Teams District Operations Manager Relationship Specialty Start Date End Date Name, MD Ion [address] [place] [address] PCP - General Family Medicine 05/12/17 documented as of this encounter
--- OUTSIDE RECORDS SUMMARY | 2024-07-11 13:51 | XMS_ITS | Encounter Summary ---
Author Organization [employer] Address [address] [place] [address] 7t [place] [address] Care Team Providers Care Craft Center Director Name Role Phone Name, Ion LAUREANO Primary Care Provider [phone] Reason for Visit * Reason Comments Med Refill Encounter Details Date Type Department Care Team (Late Contact Info) Description 09/25/2022 Refill [facility] [address] [place] [address] [phone] Dori Madrid FNP [address] [place] [address] [place] [address] Primary hypertension Social History Tobacco Use Types Packs/Day Years Used Date Smoking Tobacco: Never Smokeless Tobacco: Never Depression Answer Date Recorded Patient Health Questionnaire-9 Score 7 08/31/2022 Depression Answer Date Recorded Patient Health Questionnaire-2 Score 2 08/31/2022 Comments Unknown Sex and Gender Information Value Date Recorded Sex Assigned at Female 03/09/2022 10:19 AM EDT Legal Sex Female 10:19 AM EDT Gender Identity Female 03/09/2022 10:19 AM EDT Sexual Orientation Straight 03/09/2022 10 :19 AM EDT COVID-19 Exposure Response Date Recorded In the last 10 days, have yo u been in contact with someone who was confirmed or suspected to have Coronavirus/COVID-19? No / Unsure 08/31/2022 10:21 AM EDT documented as of this encounter Plan of Treatment Upcoming Encounters Date Type Department Care Team ([facility] Contact Info) Description 08/29/2024 11:15 AM EDT Office Visit [facility] [address] [place] [address] [phone] Name, MD Ion [address] [place] [phone] documented as of this encounter Visit Diagnoses Diagnosis Primary hypertension Unspecified essential hypertension documented in this encounter Additional Health Concerns Assessment Noted Time PHQ-9 Depression Total Score: 7 09/01/19 23 10:47 AM EDT documented as of this encounter Care Teams Craft Center Director Relationship Specialty Start Date End Date Name, MD Ion [address] [place] [address] PCP - General Family Medicine 05/12/17 documented as of this encounter
--- OUTSIDE RECORDS SUMMARY | 2024-07-11 13:51 | XMS_ITS | Encounter Summary ---
Author Organization [employer] Address [address] [facility] 7t [place] [address] Care Team Providers Care Pyrometer Mechanic Name Role Phone Name, Ion LAUREANO Primary Care Provider [phone] Reason for Visit * Reason Comments Med Refill Encounter Details Date Type Department Care Team ([facility] st Contact Info) Description 03/07/[address] [facility] [address] [place], [place] [phone] Name, MD Ion [address] [place] [address] Social History Tobacco Use Types Packs/Day Years [...] Description 08/29/2024 11:15 AM EDT Office Visit [facility] [address] [place] [phone] Name, MD Ion [address] [place] [phone] documented as of this encounter Visit Diagnoses Not on filedocumented in this encounter Additional Health Concerns Assessment Noted Time PHQ-9 Depression Total Score: 7 09/01/19 23 10:47 AM EDT documented as of this encounter Care Teams Pyrometer Mechanic Relationship Specialty Start Date End Date Name, MD Ion [address] [place] [phone] PCP - General Family Medicine 05/12/17 documented as of this encounter
== END 2024-07-11 11:05 | disposition home or self-care (01) ==
LOC: HO.MAMMO 11:04
PROVIDERS: PCP Internal Medicine Geriatric Medicine; Visit Provider Internal Medicine Geriatric Medicine
DX: Z13.820 Encounter for screening for osteoporosis (principal); Z78.0 Asymptomatic menopausal state
CPT/HCPCS: 77080

== ENCOUNTER → 2024-07-11 11:30 | Outpatient (BNV) | payer MEDICARE, MEDICAID, SELFPAY | PROVIDERS: PCP Internal Medicine Geriatric Medicine; Visit Provider Radiology Diagnostic Radiology | DX: E28.39 Other primary ovarian failure (principal) | CPT/HCPCS: 77080 ==

== ENCOUNTER 2024-08-29 11:48 | Outpatient (REF) | payer MEDICARE, MEDICAID, SELFPAY ==
[2024-08-29 13:48] LABS: Alanine Aminotransferase 19 U/L (0-31); Albumin Level 4.4 g/dL (3.5-5.0); Alkaline Phosphatase 106 U/L (39-117); Anion Gap 15 (12-20); Aspartate Amino Transferase 25 U/L (5-31); Bilirubin Total 0.4 mg/dL (0.0-1.0); Blood Urea Nitrogen 17 mg/dL (9-16); Calcium 9.5 mg/dL (8.4-10.2); Carbon Dioxide 26 mmol/L (22-29); Chloride 103 mmol/L (96-108); Cholesterol 158 mg/dL (<200); Estimated Glomerular Filt Rate > 60; Glucose Random 118 mg/dL (60-115); HDL Cholesterol 72 mg/dL (>40); LDL Cholesterol Calculated 70 mg/dL (<100); Potassium 4.3 mmol/L (3.3-5.1); Sodium 140 mmol/L (135-145); Total Protein 7.5 g/dL (6.5-8.0); Triglycerides 81 mg/dL (<150)
[2024-08-29 14:03] LABS: Creatinine Urine 68.94 mg/dL; Microalbum/Creatinine Ratio Ur 34.8 ug/mg cr (<30)
--- OUTSIDE RECORDS SUMMARY | 2024-08-29 14:18 | XMS_ITS | Encounter Summary ---
Author Organization [employer] Address [address] [facility] 7t [place] [address] Care Team Providers Care Ecological Modeler Name Role Phone Name, Ion LAUREANO Primary Care Provider [phone] Encounter Details Date Type Department Care Team (Late st Contact Info) Description 05/07/2023 Orders Only [facility] [address] [place], [place] [phone] Peri Garcia MD [address] [place], [place] [phone] Social History Tobacco Use Types Packs/Day Years [...] as of this encounter Plan of Treatment Not on file documented as of this encounter Visit Diagnoses Not on filedocumented in this encounter Additional Health Concerns Assessment Noted Time PHQ-9 Depression Total Score: 7 09/01/19 23 10:47 AM EDT documented as of this encounter Care Teams Ecological Modeler Relationship Specialty Start Date End Date Name, MD Ion [address] [place] [address] PCP - General Family Medicine 05/12/17 documented as of this encounter
--- OUTSIDE RECORDS SUMMARY | 2024-08-29 14:18 | XMS_ITS | Clinical Summary ---
Author Organization [employer] Address [address] [facility] 7t [place] [address] Care Team Providers Care Weaver Wire Loom Name Role Phone Name, Ion LAUREANO Primary Care Provider [phone] Allergies Active Allergy Reactions Criticality Noted Date Comments Aspirin Rash Low 04/20/2017 Cephalexin Diarrhea 12/19/2018 Lisinopril Hives 12/19/2018 Medications FreeStyle lancets DIRECTED TO TEST BLOOD SUGAR THREE TIMES DAILY 05/17/19 23 Active NIFEdipine CC (Adalat CC) 60 [...] SHAKE GENTLY. 48 g 07/12/19 25 Active albuterol (Ventolin HFA) 108 (90 Base) MCG/ACT inhaler INHALE 2 PUFFS BY MOUTH EVERY 4 TO 6 HOURS NEEDED 18 g 3 08/30/19 25 Active albuterol (Ventolin HFA) 108 (90 Base) MCG/ACT inhaler INHALE 2 PUFFS BY MOUTH EVERY 4 TO 6 HOURS NEEDED 18 g 04/08/20 23 025 Discontinued(Re order (will not trigger notification to Pharmacy)) Active Problems Problem Noted Date Diagnosed Date Venous stasis dermatitis, unspecified laterality 01/19/2024 Vitamin D deficiency 06/18/2023 Hyperparathyroidism, primary 06/18/2023 Osteoarthritis of knee 06/03/2017 Calcification of lung 06/01/2017 Overview (08/29/2024): Patient was never a smoker. She had CT scan of the chest 2018 and 2021 No changes in the right middle lobe nodule of 12 mm in size. She has left upper lobe calcified granuloma also unchanged in the left upper lobe Chronic low back pain 06/01/2017 Essential hypertension 06/01/2017 Knee pain 06/01/2017 Moderate persistent asthma 06/01/2017 Morbid obesity 06/01/2017 Type 2 diabetes mellitus without complication Hyperlipidemia 04/20/2017 Resolved Problems Problem Noted Date Diagnosed Date Resolved Date Diabetes mellitus type 2 in obese 07/13/2017 08/06/2022 Lung mass 07/13/2017 08/29/2024 Lung infiltrate 06/03/2017 08/06/2022 Diabetes mellitus 04/20/2017 08/06/2022 Hypertensive disorder 04/20/20172022 Encounters Date Type Department Care Team Description 08/29/2024 11:15 AM EDT Office Visit [facility] [address] [place] [address] NameIon MD Type 2 diabetes mellitus without complication, without long-term current use of insulin ([facility]) (Primary Dx); Essential hypertension; Moderate persistent asthma without complication 08/29/2024 Travel 08/23/2024 Telephone [facility] [address] [place] [address] Azeem hCawla [place] chart prep 07/21/2024 Population Health [facility] ([facility] Department [address] [phone] Provider, Population Health Generic 07/11/2024 Refill [facility] [address] [place] [address] Ion Faulkner MD Runny nose 07/06/2024 Refill [facility] [address] [place] [address] Ion Faulkner MD 07/05/2024 Refill [facility] [address] [place] [address] Ion Faulkner MD Runny nose 06/20/2024 Telephone [facility] [address] [place] [address] Ion Faulkner MD Prior Authorization ([place]) 06/01/2024 Abstract [facility] [address] [place] [address] Ion Faulkner MD from Last 3 Months Immunizations Name Administration [...] Sign Reading Time Taken Comments Blood Pressure 155/85 08/29/2024 11:39 AM EDT Pulse 92 08/29/2024 11:29 AM EDT Temperature 36.8 ??C (98.2 ??F) 08/29/2024 11:29 AM E DT Respiratory Rate 12 08/29/2024 11:29 AM EDT Oxygen Saturation 97% 08/29/2024 11:29 AM EDT Inhaled Oxygen Concentration - - Weight 114 kg (251 lb 12.8 oz) 08/29/2024 11:29 AM EDT Height 167.6 cm (5' 6 ) 08/29/2024 11:29 AM EDT Body Mass Index 40.64 08/29/2024 11:29 AM EDT Plan of Treatment Health Maintenance Due Date Last Done Comments [...] 2024 03/04/2021, 02/11/2021 Influenza Vaccine (#1) 2024 , 02/23/2022, 06/12/2019 Depression Screening 09/23/2024 09/24/2023, 09/24/19 24 Diabetes: Hemoglobin A1C 10/24/2024 024, 09/24/2023, 02/12/2023, Additional history exists Diabetes: Foot Exam 01/18/2025 01/19/2024, 01/19/2024, 01/19/2024, Additional history exists Eye Exam 02/22/2025 02/22/2023 Alcohol/Substance Use Screening 04/25/2025 04/25/2024 SDOH Screening 04/25/2025 04/25/2024 FOBT 05/16/2025 05/16/2024 Diabetes: Urine Protein Screening 08/29/2025 08/29/2024, 02/16/2023, 07/03/2021, Additional history exists Lipid Panel 08/29/2025 08/29/2024, 100 10/2022, 07/03/2021 Tobacco Screening 08/29/2025 08/29/2024 Mammogram 02/23/2026 02/24/2024, 11/08, 11/29/2019, Additional history exists Colorectal Cancer Screening [...] Diagnosis Comments ALBUMIN, RANDOM URINE W/CREATININE Routine 08/29/2024 11:51 AM EDT Type 2 diabetes mellitus without complication, without long-term current use of insulin (CMS/HCC) Essential hypertension LIPID PANEL, STANDARD Routine 08/29/2024 11:51 AM EDT Type 2 diabetes mellitus without complication, without long-term current use of insulin (CMS/HCC) Essential hypertension COMPREHENSIVE METABOLIC PANEL Routine 08/29/2024 11:51 AM EDT Type 2 diabetes mellitus without complication, without long-term current use of insulin (CMS/HCC) Essential hypertension POCT GLUCOSE Routine 08/29/2024 11:31 AM EDT Type 2 diabetes mellitus without complication, without long-term current use of insulin (CMS/HCC) BD DEXA AXIAL Routine 07/11/2024 11:30 AM EST Post menopausal problems HM FIT DNA/COLOGUARD CANCER SCREENING Routine 05/16/2024 POCT GLYCATED HEMOGLOBIN, TOTAL Routine 04/25/2024 2:33 PM EST Type 2 diabetes mellitus without complication, without long-term current use of insulin ([facility]) BI MAMMOGRAM SCREENING TOMOSYNTHESIS BILATERAL Routine 02/24/2024 1:45 PM EDT HM DIABETES EYE EXAM Routine 02/22/2023 ZZZ HISTORICAL HPV MRNA E6/E7 Routine 11/09/2018 2:41 PM EDT from Last 3 Months or Most Recently Relevant to Health Maintenance Results * (ABNORMAL) Albumin, Random Urine W/Creatinine (08/29/2024 11:51 AM EDT) Creatinine, Urine 68.94 mg/dL [facility] Microalbumin Urine 24.0 mg/L H [facility] Microalbum Creatinine Ratio Ur 34.8(H) <30 ug/mg cr [facility] Comment:Albumin/Creatinine R atio Reference Ranges: Normal: < 30 ug/mg creatinine Microalbuminuria: 30 - 300 ug/mg creatinineClinical Albuminuria: > 300 ug/mg creatinine Urine (Urine, Random) 08/29/2024 11:51 AM EDT 08/29/2024 1:22 PM EDT us Ion Name MD LAB URINE ORDERABLES Final Resul t [facility] [address] [place] [address] [phone] * Lipid Panel, Standard (08/29/2024 11:51 AM EDT) Triglycerides 81 <150 mg/dL [facility] Comment:Desirable Triglyceri de: less than 150 mg/dLBorderline High Triglyceride 150-199 mg/dLHigh Triglyceride: 200-499 mg/dLVery High Triglyceride: greater than or equal to 5OO mg/dL Cholesterol 158 <200 mg/dL [facility] Comment:Desirable Cholestero l: less than 200 mg/dLBorderline High Cholesterol: 200-239 mg/dLHigh Cholesterol: greater than 239 mg/dL LDL Cholesterol Calculated 70 <100 mg/dL [facility] Comment:Desirable LDL: less than 100 mg/dLNear Optimal/Above Optimal LDL: 110- 129 mg/dLBorderline High LDL: 130-159 mg/dLHigh LDL: 160-189 mg/dLVery High LDL: greater than or equal to 190 mg/dL HDL Cholesterol 72 >40 mg/dL [facility] Comment:Desirable HDL: great er than 40 mg/dL Note: This HDL assay may give artificially low results in patients with liver disease. Blood Venous blood specimen / Unknown 08/29/2024 11:51 AM EDT 08/29/2024 1:13 PM EDT us Ion Name LAB BLOOD ORDERABLES Final Resul t [facility] [address] [place] [address] [phone] * (ABNORMAL) Comprehensive Metabolic Panel (08/29/2024 11:51 AM EDT) Sodium 140 135 - 145 mmol/L [facility] Potassium 4.3 3.3 - 5.1 mmol/L [facility] Chloride 103 96 - 108 mmol/L [facility] Carbon Dioxide 26 22 - 29 mmol/L [facility] Anion Gap 15 12 - 20 [facility] Urea Nitrogen (BUN) 17(H) 9 - 16 mg/dL [facility] Creatinine, Serum 0.81 0.5 - 1.4 mg/dL [facility] Estimated Glomerular Filt Rate >60 [facility] Comment:Chronic Kidney Disea se: Estimated GFR < 60 mL/min/1.11a2Sipvom Kidney Disease: Estimated GFR < 15 mL/min/1.73m2 Glucose 118(H) 60 - 115 mg/dL [facility] Calcium 9.5 8.4 - 10.2 mg/dL [facility] Bilirubin, Total 0.4 0.0 - 1.0 mg/dL [facility] Aspartate Amino Transferase 25 5 - 31 U/L [facility] Alanine Aminotransferase 19 0 - 31 U/L [facility] Total Protein 7.5 6.5 - 8.0 g/dL [facility] Albumin Level 4.4 3.5 - 5.0 g/dL [facility] Alkaline Phosphatase 106 39 - 117 U/L [facility] Blood Venous blood specimen / Unknown 08/29/2024 11:51 AM EDT 08/29/2024 1:13 PM EDT us Ion Faulkner MD LAB BLOOD ORDERABLES Final Resul t [facility] [address] [place] [phone] [phone] * POCT Glucose (08/29/2024 11:31 AM EDT) Glucose Blood, POC 127 60 - 200 mg/dL QC Media Lot # [id number] Lot# Expiration Date 82,625 Blood Capillary blood specimen / Unknown 08/29/2024 11:31 AM EDT Ion Faulkner MD POINT OF CARE TEST ENTER/EDIT OR DERABLES Final Result * BD DEXA Axial (07/11/2024 11:30 AM EST) Anatomical Region Laterality Modality Body Radiographic Jamila ging 07/11/2024 11:3 0 AM EST Narrative 07/14/2024 7:33 AM EST ? [facility] ? [address] ?[place] [address] ? Mammography Report ? Signed ? Patient: Worley,Kamryn M ?MR#: [id number] ? : 1955 ?Acct:[id number] ? Age/Sex: 68 / F ?ADM Date: 03/04/25 ? Loc: HO.MAMMO ? Attending Dr: Ion Faulkner MD ? Ordering Physician: Lucie,Ion LAUREANO ?Results: ? Date of Service: 07/11/24 ?Follow Up: ? Procedure(s): XR DEXA axial skeleton ?? Accession Number(s): [id number] ? cc: Name,Ion LAUREANO ? EXAMINATION: ??DXA BONE DENSITY AXIAL ? HISTORY: ??Estrogen deficiency ? TECHNIQUE: Sernova Dual energy absorptiometry (DEXA) ?? of the lumbar spine, total left hip, and femoral neck was performed. ? COMPARISON: ??There are no prior studies for comparison. ? FINDINGS: ? The bone mineral density of the lumbar spine is 1.347 with a T-score of ?? 1.4, and a Z-score of 1.9. ? The bone mineral density of the left total hip is 0.925 with a T-score ?? of -0.7, and a Z-score of -0.2. ? The bone mineral density of the left femoral neck is 0.834 with a ?? T-score of -1.5, and a Z-score of -0.6. ? FRACTURE RISK: ?? The FRAX index suggests a risk of major osteoporotic fracture of 4.8%, ?? and of hip fracture 0.5%. ? MM/XR DEXA axial skeleton ?? IMPRESSION: ?? Based on bone mineral density, and according to World Health ?? Organization (WHO) criteria, the diagnosis is consistent with ?? osteopenia. ? All bone density values are in grams per centimeter squared (g/cm2). ?? Statistically, 68% of repeat scans fall within 1 SD (+/- 0.010 g/cm2 ?? for AP spine L1-L4) and 1 SD (+/- 0.012 g/cm2 for femur total) ?? FRAX is a trademark of the [employer]'s ?? [place] for Metabolic Bone Disease, a World Health Organization (WHO) ?? Collaborating Center. ? Electronically signed by: ??Iggy Sam MD ??07/14/2024 07:27 AM EST ?? RP ? Dictated By: ?Iggy Sam MD ? Signed By: ?<Electronically signed by Iggy Sam MD in OV> ?07/14/2427 ? DD/ 1130 ? TD/TT: 07/11/24 1155 ? Obiee Report Developer: ? Procedure Note Zeny, Lorraine - 07/14/2024 Noe [facility] [address] [place] [address] Mammography Report Signed Patient: Kamryn Worley MMR#: [id number] : 1955cct:[id number] Age/Sex: 68 / FADM Date: 07/11/24 Loc: HO.MAMMO Attending Dr: Ion Faulkner MD Ordering Physician: Ion Faulknerults: Date of Service: 07/11/24Follow Up: Procedure(s): XR DEXA axial skeleton Accession Number(s): [id number] cc: Ion Faulkner MD EXAMINATION: DXA BONE DENSITY AXIAL HISTORY: Estrogen deficiency TECHNIQUE: Sernova Dual energy absorptiometry (DEXA) of the lumbar spine, total left hip, and femoral neck was performed. COMPARISON: There are no prior studies for comparison. FINDINGS: The bone mineral density of the lumbar spine is 1.347 with a T-score of 1.4, and a Z-score of 1.9. The bone mineral density of the left total hip is 0.925 with a T-score of -0.7, and a Z-score of -0.2. The bone mineral density of the left femoral neck is 0.834 with a T-score of -1.5, and a Z-score of -0.6. FRACTURE RISK: The FRAX index suggests a risk of major osteoporotic fracture of 4.8%, and of hip fracture 0.5%. MM/XR DEXA axial skeleton IMPRESSION: Based on bone mineral density, and according to World Health Organization (WHO) criteria, the diagnosis is consistent with osteopenia. All bone density values are in grams per centimeter squared (g/cm2). Statistically, 68% of repeat scans fall within 1 SD (+/- 0.010 g/cm2 for AP spine L1-L4) and 1 SD (+/- 0.012 g/cm2 for femur total) FRAX is a trademark of the [employer] [place] [employer] Metabolic Bone Disease, a World Health Organization (WHO) Collaborating Center. Electronically signed by: Iggy Sam MD 07/14/2024 07:27 AM EST RP Dictated By: Iggy Sam MD Signed By: <Electronically signed by Iggy Sam MD in OV> 07/14/24 0727 DD/ 1130 TD/TT: 07/11/24 1155 Obiee Report Developer: us Ion Faulkner MD IMG DXA PROCEDURES Final Result * FIT DNA/Cologuard Cancer Screening (05/16/2024) [facility] Cologuard Cancer Screen Negative Stool 05/16/2024 us Ion Faulkner MD HEALTH MAINTENANCE Final Result * (ABNORMAL) POCT HGB A1C (04/25/2024 2:33 PM EST) [facility] Hemoglobin A1C 6.4(A) 4.0 - 6.0 % QC Media Lot # [id number] Lot# Expiration Date [id number] Blood 04/25/2024 2:33 PM EST us Ion Faulkner MD POINT OF CARE TEST ENTER/EDIT OR DERABLES Final Result * BI Mammogram Screening Tomosynthesis Bilateral (02/24/2024 1:45 PM EDT) Anatomical Region Laterality Modality Breast Bilateral Mammography 02/24/2024 1:45 PM EDT Narrative 03/07/2024 12:30 PM EDT ? [facility] ? [address] ?[place], [place] [address] ? Mammography Report ? Signed with Addenda ? Patient: Kamryn Worley ?MR#: [id number] ? : 1955 ?Acct:[id number] ? Age/Sex: 68 / F ?ADM Date: 02/23/ ? Loc: HO.MAMMO ? Attending Dr: Ion Name MD ? Ordering Physician: Name,Ion MD ?Results: 1Negative ? Date of Service: 02/23/ ?Follow Up: 1 Year From Orig ?? inal Mammogram ? Procedure(s): MM tomosynthesis screening BI ?? Accession Number(s): [id number] ? cc: Name,Ion MD ?ADDENDUM ? ADDENDUM [...] ??Charley Parks DO ??03/07/2024 12:27 PM EDT ?? RP ? Dictated By: ?Charley Parks DO ? Signed By: ?<Electronically signed by Charley Parks, DO in OV> ? 03/07/24 1227 ? DD/ 1345 ? TD/TT: 02/24/24 1401 ? Obiee Report Developer: ? Procedure Note Zeny, Image - 03/10/2024 Noe [facility] [address] [place], [place] [address] Mammography Report Signed with Addenda Patient: Kamryn Worley MMR#: [id number] : 7Acct:[id number] Age/Sex: 68 / FADM Date: 02/24/24 Loc: HOEBERO Attending Dr: Ion Faulkner MD Ordering Physician: Ion Faulkneresults: 1Negative Date of Service: 02/24/24Follow Up: 1 Year From Orig inal Mammogram Procedure(s): MM tomosynthesis screening BI Accession Number(s): [id number] cc: Name,Ion LAUREANO ADDENDUM ADDENDUM #1 ADDENDUM: Due to a software issue related to the original report, this case has been reviewed again and the original findings and recommendations remain the same. OVERALL ASSESSMENT: BI-RADS 1 - Negative RECOMMENDATION: 1 year F/U Electronically signed by: Charley Parks DO 03/10/2024 10:25 AM EDT Addendum Dictated By: Charley Parks DO Addendum [...] Parks DO in OV> 03/07/24 1227 DD/ 1345 TD/TT: 02/24/24 1401 Obiee Report Developer: us Lemon Name IMG BI PROCEDURES Edited Result - Final * Hm Diabetes Eye Exam (02/22/2023) Eye Exam Normal Normal us Lemon Name HEALTH MAINTENANCE Final Result * HPV mRNA E6/E7 (11/09/2018 2:41 PM EDT) HPV mRNA E6/E7 Not Detected NOT DETECTED [facility] Comment: This test was performed using the APTIMA(R) HPV Assay ([employer] This assay detects E6/E7 viral messenger RNA (mRNA) from 14 high-risk HPV types (16,18,31,33,35,39,45,51, 52,56,58,59,66,68). For additional information please refer to: http://education.[employer]/faq/EZR670w4 (This link is being provided for informational/ educational purposes only.) The analytical performance characteristics of this assay have been determined by [employer] [place], [place]. The modifications have not been cleared or approved by the FDA. This assay has been validated pursuant to the CLIA regulations and is used for clinical purposes. Test Performed by [employer], [employer] [facility], [address] [place] [address] Ortiz Taylor M.D., Ph.D., Director of Laboratories , CLIA [id number] Please note: ??Effective 01/20/2016, HPV testing will be performed using [employer]'s APTIMA test which targets mRNA. Detecting mRNA instead of DNA, as in older methods, offers significant improvements in specificity. 11/09/2018 2:41 PM EDT Zhanna Harrell JEANETTEKeisha HISTORICAL/NON ORDERABLE LABS Final Result [facility] [address] from Last 3 Months or Most Recently Relevant to Health Maintenance Insurance [facility] STANDARD MEDICARE Care Teams Weaver Wire Loom Relationship Specialty Start Date End Date Name, MD Ion [address] [place] [address] PCP - General Family Medicine 05/12/17
--- OUTSIDE RECORDS SUMMARY | 2024-08-29 14:18 | XMS_ITS | Encounter Summary ---
Author Organization [employer] Address [address] [facility] 7t [place] [address] Care Team Providers Care Outside Maintenance Worker Name Role Phone Name, Ion LAUREANO Primary Care Provider Reason for Visit * Reason Comments Med Refill Encounter Details Date Type Department Care Team ([facility] st Contact Info) Description 09/25/2022 Refill [facility] [address] [place] [address] Dori Madrid FNP [address] [place] [address] Dept [place] [address] Primary hypertension Social History Tobacco Use Types [...] documented as of this encounter Care Teams Outside Maintenance Worker Relationship Specialty Start Date End Date Name, MD Ion [address] [place] [address] PCP - General Family Medicine 05/12/17 documented as of this encounter
--- OUTSIDE RECORDS SUMMARY | 2024-08-29 14:18 | XMS_ITS | Encounter Summary ---
Author Organization [employer] Address [address] [facility] 7t [place] [address] Care Team Providers Care Band Teacher Name Role Phone Name, Ion LAUREANO Primary Care Provider [phone] Reason for Visit * Reason Comments Med Refill Encounter Details Date Type Department Care Team ([facility] st Contact Info) Description 03/16/2024 Refill [facility] [address] [place], [place] [phone] Name, MD Ion [address] [place] [address] Social History Tobacco Use Types Packs/Day Years [...] documented as of this encounter Care Teams Band Teacher Relationship Specialty Start Date End Date Name, MD Ion [address] [place] [address] PCP - General Family Medicine 05/12/17 documented as of this encounter
--- OUTSIDE RECORDS SUMMARY | 2024-08-29 14:18 | XMS_ITS | Encounter Summary ---
Author Organization [employer] Address [address] [facility] 7t [place] [address] Care Team Providers Care Mass Communications Professor Name Role Phone Name, Ion LAUREANO Primary Care Provider [phone] Encounter Details Date Type Department Care Team (Latest Contact Info) Description 08/29/2024 Travel Social History Tobacco Use Types Packs/Day Years [...] documented as of this encounter Care Teams Mass Communications Professor Relationship Specialty Start Date End Date Name, MD Ion [address] [place] [address] PCP - General Family Medicine 05/12/17 documented as of this encounter
--- OUTSIDE RECORDS SUMMARY | 2024-08-29 14:18 | XMS_ITS | Encounter Summary ---
Author Organization [employer] Address [address] [facility] 7t [place] [address] Care Team Providers Care Water And Sewer Systems Superintendent Name Role Phone Name, Ion LAUREANO Primary Care Provider [phone] Reason for Visit * Reason Comments Diabetes Encounter Details Date Type Department Care Team ([facility] st Contact Info) Description 08/29/2024 11:15 AM EDT Office Visit [facility] [address] [place], [place] [phone] Name, MD Ion [address] [place] [address] Type 2 diabetes mellitus without complication, without long-term current use of insulin ([facility]) (Primary Dx); Essential hypertension; Moderate persistent asthma without complication Social History Tobacco Use Types Packs/Day Years [...] AM EDT documented as of this encounter Last Filed Vital Signs Vital Sign Reading [...] Mass Index 40.64 08/29/2024 11:29 AM EDT documented in this encounter Progress Notes * Ion Faulkner MD - 08/29/2024 11:15 AM EDT Images from the original note were not included. Subjective Patient ID: Kamryn Worley is a 68 y.o. female who presents for Diabetes. Patient comes for a follow-up visit. She is accompanied by her son. She is asymptomatic today. Blood sugars well-controlled. BP was initially elevated but repeat reading was better and she is gettingconsistently BPs at home below 140/90. She denies significant asthma or seasonal allergy symptoms at the moment. Review of Systems Constitutional: Negative for chills and fever. HENT: Negative for sore throat. Respiratory: Negative for cough, shortness of breath and wheezing. Cardiovascular: Negative for chest pain, palpitations and leg swelling. Gastrointestinal: Negative for abdominal pain. Visit Vitals BP (!) 155/85 Pulse 92 Temp 98.2 ??F (36.8 ??C) (Temporal) Resp 12 Ht 5' 6 (1.676 m) Wt 251 lb 12.8 oz (114 kg) SpO2 97% BMI 40.64 kg/m?? Smoking Status Never BSA 2.3 m?? Objective Physical Exam Constitutional: Appearance: Normal appearance. Cardiovascular: Rate and Rhythm: Normal rate and regular rhythm. Heart sounds: No murmur heard. No gallop. Pulmonary: Effort: Pulmonary effort is normal. No respiratory distress. Breath sounds: Normal breath sounds. No wheezing. Musculoskeletal: Right lower leg: No edema. Left lower leg: No edema. Neurological: Mental Status: She is alert. Lab Results Component Value Date WBC 10.4 02/12/2023 HGB 12.5 02/12/2023 HCT 39.0 02/12/2023 MCV 88.8 02/12/2023 PLT 388 02/12/2023 Lab Results Component Value Date HGBA1C 6.4 (A) 04/25/2024 HGBA1C 6.4 (A) 09/24/2023 HGBA1C 6.4 (A) 02/12/2023 HGBA1C 6.8 (A) 08/31/2022 ntains abnormal data Comprehensive Metabolic Panel Order: [id number] Status: Final result Visible to patient: No (inaccessible in MyChart) Dx: Vitamin D deficiency; Type 2 diabetes... 0 Result Notes 1 Follow-up Encounter Component Ref Range & Units 11 mo ago (09/30/23) 1 yr ago (06/18/23) 1 yr ago (02/12/23) 2 yr ago (08/06/22) 2 yr ago (02/23/22) 2 yr ago (01/16/22) 3 yr ago (07/03/21) 3 yr ago (07/03/21) Sodium 135 - 145 mmol/L 145 141 144 143 Potassium 3.3 - 5.1 mmol/L 4.5 4.1 4.4 3.6 Chloride 96 - 108 mmol/L 101 102 105 99 Carbon Dioxide 22 - 29 mmol/L 27 27 26 30 High Anion Gap 12 - 20 22 High 16 17 18 Urea Nitrogen (BUN) 9 - 16 mg/dL 14 15 15 17 High 11 R 17 R 15 R Creatinine, Serum 0.5 - 1.4 mg/dL 0.72 0.85 0.78 0.83 Estimated Glomerular Filt Rate >60 >60 CM >60 CM >60 CM Comment: NOTE: For -British individuals, multiply the result by 1.210.Chronic Kidney Disease: Estimated GFR < 60 mL/min/[id number] Kidney Disease: Estimated GFR < 15 mL/min/1.73m2 Glucose 60 - 115 mg/dL 92 97 105 145 High Calcium 8.4 - 10.2 mg/dL 10.2 10.5 High 10.4 High 9.6 Bilirubin, Total 0.0 - 1.0 mg/dL 0.6 0.5 Aspartate Amino Transferase 5 - 31 U/L 20 17 Alanine Aminotransferase 0 - 31 U/L 15 16 16 R Total Protein 6.5 - 8.0 g/dL 7.8 8.0 Albumin Level 3.5 - 5.0 g/dL 4.5 4.6 Alkaline Phosphatase 39 - 117 U/L 107 104 Resulting Agency [facility] Albumin, Random Urine W/Creatinine Order: [id number] Status: Final result Visible to patient: No (inaccessible in [facility]) 0 Result Notes 1 Topic Component Ref Range & Units 1 yr ago 3 yr ago Creatinine, Urine mg/dL 27.38 Microalbumin Urine mg/L <5.0 13.3 R, CM Microalbum Creatinine Ratio Ur <30 ug/mg cr TNP Comment: Unable to calculate albumin/creatinine ratio due to lowmicroalbumin or creat Assessment/Plan Diagnoses and all orders for this visit: Type 2 diabetes mellitus without complication, without long-term current use of insulin ([facility]) Comments: Continue current dose of metformin. Continue statin for primary prevention of cardiovascular disease. Check testing listed below. Avoid sweets and soda Orders: - POCT Glucose - Comprehensive Metabolic Panel; Future - Lipid Panel, Standard; Future - Albumin, Random Urine W/Creatinine; Future Essential hypertension Comments: Repeat BP is better and she is getting normal readings at home. Continue current dose of nifedipine. Orders: - Comprehensive Metabolic Panel; Future - Lipid Panel, Standard; Future - Albumin, Random Urine W/Creatinine; Future Moderate persistent asthma without complication Comments: Continue as needed albuterol. Other orders - albuterol (Ventolin HFA) 108 (90 Base) MCG/ACT inhaler; INHALE 2 PUFFS BY MOUTH EVERY 4 TO 6 HOURS NEEDED documented in this encounter Plan of Treatment Not on file documented as of this encounter Procedures Procedure Name Priority Date/Time Associated Diagnosis Comments ALBUMIN, RANDOM URINE W/CREATININE Routine 08/29/2024 11:51 AM EDT Type 2 diabetes mellitus without complication, without long-term current use of insulin ([facility]) Essential hypertension LIPID PANEL, STANDARD Routine 08/29/2024 11:51 AM EDT Type 2 diabetes mellitus without complication, without long-term current use of insulin ([facility]) Essential hypertension COMPREHENSIVE METABOLIC PANEL Routine 08/29/2024 11:51 AM EDT Type 2 diabetes mellitus without complication, without long-term current use of insulin ([facility]) Essential hypertension POCT GLUCOSE Routine 08/29/2024 11:31 AM EDT Type 2 diabetes mellitus without complication, without long-term current use of insulin ([facility]) documented in this encounter Results * (ABNORMAL) Albumin, Random Urine W/Creatinine (08/29/2024 11:51 AM EDT) Creatinine, Urine 68.94 mg/dL [facility] Microalbumin Urine 24.0 mg/L [facility] Microalbum Creatinine Ratio Ur 34.8(H) <30 ug/mg cr [facility] Comment:Albumin/Creatinine R atio Reference Ranges: Normal: < 30 ug/mg creatinine Microalbuminuria: 30 - 300 ug/mg creatinineClinical Albuminuria: > 300 ug/mg creatinine Urine (Urine, Random) 08/29/2024 11:51 AM EDT 08/29/2024 1:22 PM EDT us Ion Faulkner MD LAB URINE ORDERABLES Final Resul t Performing Organization Address City/[facility] Co de Phone Number [facility] [address] [place] [phone] * Lipid Panel, Standard (08/29/2024 11:51 AM EDT) Triglycerides 81 <150 mg/dL [facility] Comment:Desirable Triglyceri de: less than 150 mg/dLBorderline High Triglyceride 150-199 mg/dLHigh Triglyceride: 200-499 mg/dLVery High Triglyceride: greater than or equal to 5OO mg/dL Cholesterol 158 <200 mg/dL [facility] Comment:Desirable Cholestero l: less than 200 mg/dLBorderline High Cholesterol: 200-239 mg/dLHigh Cholesterol: greater than 239 mg/dL LDL Cholesterol Calculated 70 <100 mg/dL [facility] Comment:Desirable LDL: less than 100 mg/dLNear Optimal/Above Optimal LDL: 110- 129 mg/dLBorderline High LDL: 130-159 mg/dLHigh LDL: 160-189 mg/dLVery High LDL: greater than or equal to 190 mg/dL HDL Cholesterol 72 >40 mg/dL [facility] Comment:Desirable HDL: great er than 40 mg/dL Note: This HDL assay may give artificially low results in patients with liver disease. Blood Venous blood specimen / Unknown 08/29/2024 11:51 AM EDT 08/29/2024 1:13 PM EDT us Ion Faulkner MD LAB BLOOD ORDERABLES Final Resul t Performing Organization Address City/[facility] Co de Phone Number [facility] [address] [place] [phone] * (ABNORMAL) Comprehensive Metabolic Panel (08/29/2024 11:51 AM EDT) Sodium 140 135 - 145 mmol/L [facility] Potassium 4.3 3.3 - 5.1 mmol/L [facility] Chloride 103 96 - 108 mmol/L [facility] Carbon Dioxide 26 22 - 29 mmol/L [facility] Anion Gap 15 12 - 20 [facility] Urea Nitrogen (BUN) 17(H) 9 - 16 mg/dL [facility] Creatinine, Serum 0.81 0.5 - 1.4 mg/dL [facility] Estimated Glomerular Filt Rate >60 [facility] Comment:Chronic Kidney Disea se: Estimated GFR < 60 mL/min/1.84j5Lmxsme Kidney Disease: Estimated GFR < 15 mL/min/1.73m2 Glucose 118(H) 60 - 115 mg/dL [facility] Calcium 9.5 8.4 - 10.2 mg/dL [facility] Bilirubin, Total 0.4 0.0 - 1.0 mg/dL [facility] Aspartate Amino Transferase 25 5 - 31 U/L [facility] Alanine Aminotransferase 19 0 - 31 U/L [facility] Total Protein 7.5 6.5 - 8.0 g/dL [facility] Albumin Level 4.4 3.5 - 5.0 g/dL [facility] Alkaline Phosphatase 106 39 - 117 U/L [facility] Blood Venous blood specimen / Unknown 08/29/2024 11:51 AM EDT 08/29/2024 1:13 PM EDT us Ion Name MD LAB BLOOD ORDERABLES Final Resul t [facility] [address] [place] [address] [phone] * POCT Glucose (08/29/2024 11:31 AM EDT) Glucose Blood, POC 127 60 - 200 mg/dL QC Media Lot # [id number] Lot# Expiration Date 82, Blood Capillary blood specimen / Unknown 08/29/2024 11:31 AM EDT Ion Faulkner MD POINT OF CARE TEST ENTER/EDIT OR DERABLES Final Result documented in this encounter Visit Diagnoses Diagnosis Type 2 diabetes mellitus without complication, without long-term current use of insulin ([facility])- Primary Essential hypertension Unspecified essential hypertension Moderate persistent asthma without complication documented in this encounter Additional Health Concerns Assessment Noted Time PHQ-9 Depression Total Score: 4 09/24/19 24 11:33 AM EDT documented as of this encounter Care Teams Water And Sewer Systems Superintendent Relationship Specialty Start Date End Date Name, MD Ion [address] [place] [address] PCP - General Family Medicine 05/12/17 documented as of this encounter
--- OUTSIDE RECORDS SUMMARY | 2024-08-29 14:18 | XMS_ITS | Encounter Summary ---
Author Organization [employer] Address [address] [facility] 7t [place] [address] Care Team Providers Care Seasoning Mixer Name Role Phone Name, Ion LAUREANO Primary Care Provider [phone] Reason for Visit * Reason Comments Med Refill Encounter Details Date Type Department Care Team ([facility] st Contact Info) Description 05/11/2023 Refill [facility] [address] [place], [place] [phone] Name, MD Ion [address] [place] [address] Runny nose Social History Tobacco Use Types [...] documented as of this encounter Care Teams Seasoning Mixer Relationship Specialty Start Date End Date Name, MD Ion [address] [place] [address] PCP - General Family Medicine 05/12/17 documented as of this encounter
--- OUTSIDE RECORDS SUMMARY | 2024-08-29 14:18 | XMS_ITS | Encounter Summary ---
Author Organization [employer] Address [address] [facility] 7t [place] [address] Care Team Providers Care Spring Up Supervisor Name Role Phone Name, Ion LAUREANO Primary Care Provider [phone] Encounter Details Date Type Department Care Team (Late st Contact Info) Description 06/11/2022 Orders Only [facility] [address] [place], [place] [phone] Alaina Del Cid LPN Social History Tobacco [...] 8:50 AM EDT) Creatinine, Urine 27.38 mg/dL [facility] Microalbumin Urine <5.0 mg/L [facility] Microalbum Creatinine Ratio Ur TNP <30 ug/mg cr [facility] Comment:Unable to calculate albumin/creatinine ratio due to lowmicroalbumin or creatinine result. 02/16/2023 8:50 AM EDT 02/16/2023 11:26 AM EDT Ion Faulkner MD LAB URINE ORDERABLES Final Resul t Performing Organization Address City/[facility]/ZIP Co de Phone Number [facility] [address] [place] [phone] * HIGH SENSITIVITY TROPONIN I (08/06/2022 1:25 PM EDT) Pathologist [facility] TROPONIN I HIGH SENSITIVITY <3.5 <3.5 - 17.0 ng/L [facility] Comment:The Rubin high sens itivity Troponin-I results should beused in conjunction with other diagnostic information suchas ECG, clinical observations and information, and patientsymptoms to aid in the diagnosis of RI. 08/06/2022 1:25 PM EDT 08/06/2022 1:28 PM EDT [facility] External Provider LAB BLO OD ORDERABLES Final Result Performing Organization Address City/[facility]/ZIP Co de Phone Number [facility] [address] [place] [phone] * B Type Natriuretic Peptide (BNP) (08/06/2022 1:25 PM EDT) Pathologist [facility] B Type Natriuretic Peptide 10 <100 pg/mL [facility] Comment:For those patients w ho are being treated with Natrecor(nesiritide, recombinant BNP), BNP testing should beperformed at least two hours post treatment in order toensure that only endogenous levels of BNP are detected. 08/06/2022 1:25 PM EDT 08/06/2022 1:28 PM EDT [facility] External Provider LAB BLO OD ORDERABLES Final Result Performing Organization Address City/[facility]/ZIP Co de Phone Number [facility] [address] [place] [address] [phone] * (ABNORMAL) Basic Metabolic Panel (08/06/2022 1:25 PM EDT) Sodium 143 135 - 145 mmol/L [facility] Potassium 3.6 3.3 - 5.1 mmol/L [facility] Chloride 99 96 - 108 mmol/L [facility] Carbon Dioxide 30(H) 22 - 29 mmol/L [facility] Anion Gap 18 12 - 20 [facility] Urea Nitrogen (BUN) 17(H) 9 - 16 mg/dL [facility] Creatinine, Serum 0.83 0.5 - 1.4 mg/dL [facility] Creatinine Clr Calc Pharmacy 81.4 [facility] Comment:Provided height and weight: 167.64 cm,102 kg.eGFR (calculated from the MDRD study equation) and eCrCl(calculated from the Cockcroft-Gault equation) are based ondifferent parameters and may not yield comparable results.If eCrCl result is absurd, please check patient'sheight/weight. Estimated Glomerular Filt Rate >60 [facility] Comment:NOTE: For -Am erican individuals, multiply the result by 1.210.Chronic Kidney Disease: Estimated GFR < 60 mL/min/1.17v9Szcysc Kidney Disease: Estimated GFR < 15 mL/min/1.73m2 Glucose 145(H) 60 - 115 mg/dL [facility] Calcium 9.6 8.4 - 10.2 mg/dL [facility] 08/06/2022 1:25 PM EDT 08/06/2022 1:28 PM EDT [facility] External Provider LAB BLO OD ORDERABLES Final Result [facility] [address] [place] [phone] * (ABNORMAL) CBC auto differential (08/06/2022 1:25 PM EDT) White Blood Count 10.7 4.8 - 10.8 X10*3/uL [facility] Red Blood Count 4.61 4.20 - 5.50 X10*6/uL [facility] Hemoglobin 13.1 12.0 - 16.0 g/dl [facility] Hematocrit 39.9 37.0 - 47.0 % [facility] Mean Corpuscular Volume 86.6 80.0 - 98.0 fL [facility] Mean Corpuscular Hemoglobin 28.4 27.0 - 33.0 pg [facility] Mean Corpuscular HGB Conc 32.8 31.0 - 35.0 g/dl [facility] Red Cell Distribution Width 13.6 11.0 - 16.0 % [facility] Platelet Count 333 160 - 400 X10*3/uL [facility] Mean Platelet Volume 8.9(L) 9.4 - 12.3 fL [facility] Neutrophils Percent Auto 47.8 45 - 73 % [facility] Imm Gran Pct Auto 0.3 0.0 - 0.4 % [facility] Lymphocytes Percent Auto 30.3 20 - 40 % [facility] Monocytes Percent Auto 9.9 2 - 11 % [facility] Eosinophils Percent Auto 10.9(H) 0 - 4 % [facility] Basophils Percent Auto 0.8 0 - 2 % [facility] NRBC Pct Auto 0.0 0.0 - 0.2 /100WBC [facility] Neutrophils Absolute Auto 5.1 2.0 - 8.3 x10*3/uL [facility] Imm Gran Abs Auto 0.03 0.00 - 0.03 X10*3/uL [facility] Lymphocytes Absolute Auto 3.3 1.2 - 4.9 X10*3/uL [facility] Monocytes Absolute Auto 1.1 0.1 - 1.2 X10*3/uL [facility] Eosinophils Absolute Auto 1.2(H) 0.0 - 0.4 X10*3/uL [facility] Basophils Absolute Auto 0.1 0.0 - 0.2 X10*3/uL [facility] NRBC Abs Auto 0.000 0.0 - 0.012 X10*3/uL [facility] 08/06/2022 1:25 PM EDT 08/06/2022 1:28 PM EDT [facility] External Provider LAB BLO OD ORDERABLES Final Result Performing Organization Address City/State/[facility] Co de Phone Number [facility] [address] [place] [phone] documented in this encounter Visit Diagnoses Not on filedocumented in this encounter Care Teams Spring Up Supervisor Relationship Specialty Start Date End Date Name, MD Ion [address] [place] [phone] PCP - General Family Medicine 05/12/17 documented as of this encounter
--- OUTSIDE RECORDS SUMMARY | 2024-08-29 14:18 | XMS_ITS | Encounter Summary ---
Author Organization [employer] Address [address] [facility] 7t [place] [address] Care Team Providers Care Telephone Cleaner Name Role Phone Name, Ion LAUREANO Primary Care Provider [phone] Reason for Visit * Reason Comments Med Refill Encounter Details Date Type Department Care Team ([facility] st Contact Info) Description 03/07/2023 Refill [facility] [address] [place], [place] [phone] Name, MD Ion [address] [place] [address] Social History Tobacco Use Types Packs/Day Years [...] documented as of this encounter Care Teams Telephone Cleaner Relationship Specialty Start Date End Date Name, MD Ion [address] [place] [address] PCP - General Family Medicine 05/12/17 documented as of this encounter
== END 2024-08-29 11:49 | disposition home or self-care (01) ==
LOC: HO.HHCL 11:48
PROVIDERS: Visit Provider Internal Medicine Geriatric Medicine
DX: E11.9 Type 2 diabetes mellitus without complications (principal); I10 Essential (primary) hypertension
CPT/HCPCS: 36415; 80053; 80061; 82043; 82570

== ENCOUNTER 2025-03-21 12:18 | Outpatient (REF) | payer MEDICARE, MEDICAID, SELFPAY ==
--- OUTSIDE RECORDS SUMMARY | 2025-03-21 15:01 | XMS_ITS | Encounter Summary ---
Author Organization [employer] Address [address] [facility] [address] [place] [address] Care Team Providers Care Traffic Operations Engineer Name Role Phone Name, Ion LAUREANO Primary Care Provider [phone] Reason for Visit * Reason Comments Med Refill Encounter Details Date Type Department Care Team ([facility] st Contact Info) Description 03/12/2025 Refill [facility] [address] [place], [place] [phone] Name, MD Ion [address] [place] [address] Runny nose Social History Tobacco Use Types [...] Care Team (Late st Contact Info) Description 03/27/2025 3:15 PM EST Office Visit [facility] [address] [place] [phone] Name, MD Ion [address] [place] [phone] documented as of this encounter Visit Diagnoses Diagnosis Runny nose Other diseases of nasal cavity and sinuses documented in this encounter Additional Health Concerns Assessment Noted Time PHQ-9 Depression Total Score: 4 09/24/19 24 11:33 AM EDT documented as of this encounter Care Teams Traffic Operations Engineer Relationship Specialty Start Date End Date Name, MD Ion [address] [place] [phone] PCP - General Family Medicine 05/12/17 documented as of this encounter
--- OUTSIDE RECORDS SUMMARY | 2025-03-21 15:01 | XMS_ITS | Encounter Summary ---
Author Organization [employer] Address [address] [facility] 7t [place] [address] Care Team Providers Care Rn X Ray Name Role Phone Name, Ion LAUREANO Primary Care Provider [phone] Encounter Details Date Type Department Care Team (Late st Contact Info) Description 06/11/2022 Orders Only [facility] [address] [place], [place] [phone] Alaina Del Cid LPN Social History Tobacco [...] Description 03/27/2025 3:15 PM EST Office Visit [facility] [address] [place], [place] [phone] Name, MD Ion [address] [place] [address] documented as of this encounter Procedures Procedure [...] Random Urine W/Creatinine (02/16/2023 8:50 AM EDT) [facility] Creatinine, Urine 27.38 mg/dL [facility] Microalbumin Urine <5.0 mg/L [facility] Microalbum Creatinine Ratio Ur TNP <30 ug/mg cr [facility] Comment:Unable to calculate albumin/creatinine ratio due to lowmicroalbumin or creatinine result. 02/16/2023 8:50 AM EDT 02/16/2023 11:26 AM EDT Ion Faulkner MD LAB URINE ORDERABLES Final Resul t Performing Organization Address [facility] Co de Phone Number [facility] [address] [place] [phone] * HIGH SENSITIVITY TROPONIN I (08/06/2022 1:25 PM EDT) [facility] TROPONIN I HIGH SENSITIVITY <3.5 <3.5 - 17.0 ng/L [facility] Comment:The Rubin high sens itivity Troponin-I results should beused in conjunction with other diagnostic information suchas ECG, clinical observations and information, and patientsymptoms to aid in the diagnosis of [place]. 08/06/2022 1:25 PM EDT 08/06/2022 1:28 PM EDT [facility] External Provider LAB BLO OD ORDERABLES Final Result Performing Organization Address [facility] Co de Phone Number [facility] [address] [place] [phone] * B Type Natriuretic Peptide (BNP) (08/06/2022 1:25 PM EDT) B Type Natriuretic Peptide 10 <100 pg/mL [facility] Comment:For those patients w ho are being treated with Natrecor(nesiritide, recombinant BNP), BNP testing should beperformed at least two hours post treatment in order toensure that only endogenous levels of BNP are detected. 08/06/2022 1:25 PM EDT 08/06/2022 1:28 PM EDT us [facility] External Provider LAB BLO OD ORDERABLES Final Result [facility] [address] [place], [place] [phone] * (ABNORMAL) Basic Metabolic Panel (08/06/2022 1:25 PM EDT) Sodium 143 135 - 145 mmol/L [facility] Potassium 3.6 3.3 - 5.1 mmol/L [facility] Chloride 99 96 - 108 mmol/L [facility] Carbon Dioxide 30(H) 22 - 29 mmol/L [facility] Anion Gap 18 12 - 20 [facility] Urea Nitrogen (BUN) 17(H) 9 - 16 mg/dL [facility] Creatinine, Serum 0.83 0.5 - 1.4 mg/dL [facility] Creatinine Clr Calc Pharmacy 81.4 [facility] Comment:Provided height and weight: 167.64 cm,102 kg.eGFR (calculated from the MDRD study equation) and eCrCl(calculated from the Cockcroft-Gault equation) are based ondifferent parameters and may not yield comparable results.If eCrCl result is absurd, please check patient'sheight/weight. Estimated Glomerular Filt Rate >60 [facility] Comment:NOTE: For -Am erican individuals, multiply the result by 1.210.Chronic Kidney Disease: Estimated GFR < 60 mL/min/1.69p8Sfypfe Kidney Disease: Estimated GFR < 15 mL/min/1.73m2 Glucose 145(H) 60 - 115 mg/dL [facility] Calcium 9.6 8.4 - 10.2 mg/dL [facility] 08/06/2022 1:25 PM EDT 08/06/2022 1:28 PM EDT [facility] External Provider LAB BLO OD ORDERABLES Final Result [facility] [address] [place] [address] [phone] * (ABNORMAL) CBC auto differential (08/06/2022 1:25 PM EDT) White Blood Count 10.7 4.8 - 10.8 X10*3/uL [facility] Red Blood Count 4.61 4.20 - 5.50 X10*6/uL [facility] Hemoglobin 13.1 12.0 - 16.0 g/dl [facility] Hematocrit 39.9 37.0 - 47.0 % [facility] Mean Corpuscular Volume 86.6 80.0 - 98.0 fL [facility] Mean Corpuscular Hemoglobin 28.4 27.0 - 33.0 pg [facility] Mean Corpuscular HGB Conc 32.8 31.0 - 35.0 g/dl [facility] Red Cell Distribution Width 13.6 11.0 - 16.0 % [facility] Platelet Count 333 160 - 400 X10*3/uL [facility] Mean Platelet Volume 8.9(L) 9.4 - 12.3 fL [facility] Neutrophils Percent Auto 47.8 45 - 73 % [facility] Imm Gran Pct Auto 0.3 0.0 - 0.4 % [facility] Lymphocytes Percent Auto 30.3 20 - 40 % [facility] Monocytes Percent Auto 9.9 2 - 11 % [facility] Eosinophils Percent Auto 10.9(H) 0 - 4 % [facility] Basophils Percent Auto 0.8 0 - 2 % [facility] NRBC Pct Auto 0.0 0.0 - 0.2 /100WBC [facility] Neutrophils Absolute Auto 5.1 2.0 - 8.3 x10*3/uL [facility] Imm Gran Abs Auto 0.03 0.00 - 0.03 X10*3/uL [facility] Lymphocytes Absolute Auto 3.3 1.2 - 4.9 X10*3/uL [facility] Monocytes Absolute Auto 1.1 0.1 - 1.2 X10*3/uL [facility] Eosinophils Absolute Auto 1.2(H) 0.0 - 0.4 X10*3/uL [facility] Basophils Absolute Auto 0.1 0.0 - 0.2 X10*3/uL [facility] NRBC Abs Auto 0.000 0.0 - 0.012 X10*3/uL [facility] 08/06/2022 1:25 PM EDT 08/06/2022 1:28 PM EDT [facility] External Provider LAB BLO OD ORDERABLES Final Result Performing Organization Address City/State/[facility] Co de Phone Number [facility] [address] [place] [address] [phone] documented in this encounter Visit Diagnoses Not on filedocumented in this encounter Care Teams Rn X Ray Relationship Specialty Start Date End Date Name, MD Ion [address] [place] [address] PCP - General Family Medicine 05/12/17 documented as of this encounter
--- OUTSIDE RECORDS SUMMARY | 2025-03-21 15:01 | XMS_ITS | Encounter Summary ---
Author Organization [employer] Address 75 [facility] 7t [place] [address] Care Team Providers Care Paving Block Cutter Name Role Phone Name, Ion LAUREANO Primary Care Provider [phone] Reason for Visit * Reason Comments Med Refill Encounter Details Date Type Department Care Team ([facility] st Contact Info) Description 05/11/2023 Refill [facility] [address] [place], [place] [phone] Name, MD Ion [address] [place] [address] Runny nose Social History Tobacco Use Types [...] Description 03/27/2025 3:15 PM EST Office Visit [facility] [address] [place] [address] Name, MD Ion [address] [place] [address] documented as of this encounter Visit Diagnoses Diagnosis Runny nose Other diseases of nasal cavity and sinuses documented in this encounter Additional Health Concerns Assessment Noted Time PHQ-9 Depression Total Score: 7 09/01/19 23 10:47 AM EDT documented as of this encounter Care Teams Paving Block Cutter Relationship Specialty Start Date End Date Name, MD Ion [address] [place] [phone] PCP - General Family Medicine 05/12/17 documented as of this encounter
--- OUTSIDE RECORDS SUMMARY | 2025-03-21 15:01 | XMS_ITS | Encounter Summary ---
Author Organization [employer] Address [address] [facility] [address] 7[address] [place] [address] Care Team Providers Care Machine Records Units Supervisor Name Role Phone Name, Ion LAUREANO Primary Care Provider [phone] Encounter Details Date Type Department Care Team (Late st Contact Info) Description 05/07/2023 Orders Only [facility] [address] [place], [place] [phone] Peri Garcia MD [address] [place], [place] [phone] Social History Tobacco Use Types Packs/Day Years Used Date Smoking Tobacco: Never Smokeless Tobacco: Never Alcohol Use Standard Drinks/Week Comments Never 0 (1 standard drink = 0.6 oz pur e alcohol) Depression Answer Date Recorded Patient Health Questionnaire-9 Score 7 08/31/2022 Housing Stability Answer Date Recorded What is your housing situation today? I have yosivanessa alfredo 02/26/[address] you [...] Description 03/27/2025 3:15 PM EST Office Visit [facility] [address] [place] [address] Name, MD Ion [address] [place] [address] documented as of this encounter Visit Diagnoses Not on filedocumented in this encounter Additional Health Concerns Assessment Noted Time PHQ-9 Depression Total Score: 7 09/01/19 23 10:47 AM EDT documented as of this encounter Care Teams Machine Records Units Supervisor Relationship Specialty Start Date End Date Name, MD Ion [address] [place] [address] PCP - General Family Medicine 05/12/17 documented as of this encounter
--- OUTSIDE RECORDS SUMMARY | 2025-03-21 15:01 | XMS_ITS | Encounter Summary ---
Author Organization [employer] Address 75 [facility] 7t [place] [address] Care Team Providers Care Elementary Spanish Teacher Name Role Phone Name, Ion LAUREANO Primary Care Provider [phone] Reason for Visit * Reason Comments Med Refill Encounter Details Date Type Department Care Team ([facility] Contact Info) Description 09/25/2022 Refill [facility] [address] [place] [phone] Dori Madrid FNP Primary hypertension Social History Tobacco Use Types [...] Upcoming Encounters Date Type Department Care Team ([facility] Contact Info) Description 03/27/2025 3:15 PM EST Office Visit [facility] [address] [place] [phone] Name, MD Ion [address] [place] [phone] documented as of this encounter Visit Diagnoses Diagnosis Primary hypertension Unspecified essential hypertension documented in this encounter Additional Health Concerns Assessment Noted Time PHQ-9 Depression Total Score: 7 09/01/19 23 10:47 AM EDT documented as of this encounter Care Teams Elementary Spanish Teacher Relationship Specialty Start Date End Date Name, MD Ion [address] [place] [address] PCP - General Family Medicine 05/12/17 documented as of this encounter
--- OUTSIDE RECORDS SUMMARY | 2025-03-21 15:01 | XMS_ITS | Encounter Summary ---
Author Organization [email or web address] Address 75 [facility] 7t [place] [address] Care Team Providers Care Instructor Adjunct Pharmacy Technician Name Role Phone Name, Ion LAUREANO Primary Care Provider [phone] Reason for Visit * Reason Comments Med Refill Encounter Details Date Type Department Care Team ([facility] st Contact Info) Description 11/03/2024 Refill [facility] [address] [place], [place] [phone] Name, MD Ion [address] [place] [address] Social History Tobacco Use Types Packs/Day Years [...] Description 03/27/2025 3:15 PM EST Office Visit [facility] [address] [place] [phone] Name, MD Ion [address] [place] [address] documented as of this encounter Visit Diagnoses Not on filedocumented in this encounter Additional Health Concerns Assessment Noted Time PHQ-9 Depression Total Score: 4 09/24/19 24 11:33 AM EDT documented as of this encounter Care Teams Instructor Adjunct Pharmacy Technician Relationship Specialty Start Date End Date NameIon MD [address] [place] [address] PCP - General Family Medicine 05/12/17 documented as of this encounter
--- OUTSIDE RECORDS SUMMARY | 2025-03-21 15:01 | XMS_ITS | Clinical Summary ---
Author Organization [employer] Address 75 [facility] 7t [place] [address] Care Team Providers Care Six Sigma Black Belt Engineer Name Role Phone Name, Ion LAUREANO Primary Care Provider [phone] Allergies Active Allergy Reactions Criticality Noted Date Comments Aspirin Rash Low 04/20/2017 Cephalexin Diarrhea 12/19/2018 Lisinopril Hives 12/19/2018 Medications FreeStyle lancets DIRECTED TO TEST BLOOD SUGAR THREE TIMES DAILY 05/17/19 23 Active albuterol (2.5 MG/3ML) 0.083% nebulizer solution USE 3 ML VIA NEBULIZER EVERY 4 HOURS NEEDED FOR WHEEZING 90 mL 3 12/15/19 24 Active Calcium Citrate-Vitami n D (Calcium Citrate [...] 60 each 11 06/20/19 25 026 Active albuterol (Ventolin HFA) 108 (90 Base) MCG/ACT inhaler INHALE 2 PUFFS BY MOUTH EVERY 4 TO 6 HOURS NEEDED 18 g 3 08/30/19 25 Active metFORMIN (Glucophage) 500 MG tablet TAKE 1 TABLET BY MOUTH TWICE DAILY WITH THE MORNING AND EVENING MEAL 180 tablet 1 12/09/19 25 Active NIFEdipine CC (Adalat CC) 60 MG 24 hr tablet Take 1 tablet (60 mg) by mouth before breakfast. 180 tablet 3 12/13/19 25 Active fluticasone (Flonase) 50 MCG/ACT nasal sprayIndicatio ns:Runny nose INSTILL 2 SPRAYS IN EACH NOSTRIL ONCE PER DAY SHAKE GENTLY, BEFORE FIRST USE, PRIME PUMP 48 g 01/04/20 25 Active cholecalcifero l (Vitamin D-3) 125 MCG (5000 UT) capsule TAKE 1 CAPSULE BY MOUTH DAILY 30 capsule 11 02/06/20 25 Active atorvastatin (Lipitor) 20 MG tablet TAKE 1 TABLET BY MOUTH EVERY DAY 90 tablet 03/02/20 25 Active atorvastatin (Lipitor) 20 MG tablet TAKE 1 TABLET BY MOUTH EVERY DAY 90 tablet 12/02/19 25 025 Discontinued Active Problems Problem Noted Date Diagnosed Date [...] 06/01/2017 Moderate persistent asthma 06/01/2017 Morbid obesity (CMS/HCC) 06/01/2017 Type 2 diabetes mellitus without complication Hyperlipidemia 04/20/2017 Resolved Problems Problem Noted Date Diagnosed Date Resolved Date Diabetes mellitus type 2 in obese 07/13/2017 08/06/2022 Lung mass 07/13/2017 08/29/2024 Lung infiltrate 06/03/2017 08/06/2022 Diabetes mellitus 04/20/2017 08/06/2022 Hypertensive disorder 04/20/20172022 Encounters Date Type Department Care Team Description 03/12/2025 Refill [facility] [address] [place], [place] [phone] Name, MD Ion Runny nose 03/01/2025 Refill [facility] [address] [place] [address] Celeste Ballard MD 02/02/2025 Refill [facility] [address] [place] [address] Name, MD Ion 01/03/2025 Refill [facility] [address] [place], [place] [phone] Name, MD Ion Runny nose 12/26/2024 Telephone [facility] [address] [place] [address] Azeem Chawla ND oct recalls from Last 3 Months Immunizations Immunization Administration Dates Next Due Influenza High-dose Quadrivalent [...] 92 08/29/2024 11:29 AM EDT Temperature 36.8 C (98.2 F) 08/29/2024 11:29 AM EDT Respiratory Rate 12 08/29/2024 11:29 AM EDT Oxygen Saturation 97% 08/29/2024 11:29 AM EDT Inhaled Oxygen Concentration - - Weight 114 kg (251 lb 12.8 oz) 08/29/2024 11:29 AM EDT Height 167.6 cm (5' 6 ) 08/29/2024 11:29 AM EDT Body Mass Index 40.64 08/29/2024 11:29 AM EDT Plan of Treatment Upcoming Encounters Date Type Department Care Team (Late st Contact Info) Description 03/27/2025 3:15 PM EST Office Visit [facility] [address] [place] [phone] Name, MD Ion [address] [place] [address] Health Maintenance Due Date Last Done Comments CT Colonography 1955 Colonoscopy 1955 FIT 1955 Sigmoidoscopy 1955 Hepatitis C Screening 1974 RSV Patients and Patients Aged 60 years or older (1 - Risk 50-74 years 1-dose series) 2006 Zoster Vaccines (1 of 2) 2006 DTaP/Tdap/Td Vaccines (1 - Tdap) 06/02/2017 06/01/2017 Pneumococcal Vaccine: 50+ Years (2 of 2 - PCV) 06/01/2018 06/01/2017 Depression Screening 09/23/2024 09/24/2023, 09/24/19 Diabetes: Hemoglobin A1C 10/24/2024 024, 09/24/2023, 02/12/2023, Additional history exists COVID-19 Vaccine (3 - season) 2025 03/04/2021, 02/11/2021 Influenza Vaccine (#1) 2025 , 02/23/2022, 06/12/2019 Diabetes: Foot Exam 01/18/2025 01/19/2024, 01/19/2024, 01/19/2024, Additional history exists Eye Exam 02/22/2025 02/22/2023 Alcohol/Substance Use Screening 04/25/2025 04/25/2024 SDOH Screening 04/25/2025 04/25/2024 FOBT 05/16/2025 05/16/2024, 05/10/2024 Diabetes: Urine Protein Screening 08/29/2025 08/29/2024, 02/16/2023, 07/03/2021, Additional history exists Lipid Panel 08/29/2025 08/29/2024, 10/2022, 07/03/2021 Tobacco Screening 08/29/2025 08/29/2024 Mammogram [...] patient's age to complete this topic Meningococcal B Vaccine Aged Out No l onger eligible based on patient's age to complete [...] complication, without long-term current use of insulin ([facility]) Essential hypertension LIPID PANEL, STANDARD Routine 08/29/2024 11:51 AM EDT Type 2 diabetes mellitus without complication, without long-term current use of insulin ([facility]) Essential hypertension FIT DNA/COLOGUARD CANCER SCREENING Routine 05/16/2024 POCT GLYCATED HEMOGLOBIN, TOTAL Routine 04/25/2024 2:33 PM EST Type 2 diabetes mellitus without complication, without long-term current use of insulin ([facility]) BI MAMMOGRAM SCREENING TOMOSYNTHESIS BILATERAL Routine 02/24/2024 1:45 PM EDT DIABETES EYE EXAM Routine 02/22/2023 ZZZ HISTORICAL HPV MRNA E6/E7 Routine 11/09/2018 2:41 PM EDT from Last 3 Months or Most Recently Relevant to Health Maintenance Results * (ABNORMAL) Albumin, Random Urine W/Creatinine (08/29/2024 11:51 AM EDT) Creatinine, Urine 68.94 mg/dL [facility] Microalbumin Urine 24.0 mg/L [facility] Microalbum Creatinine Ratio Ur 34.8(H) <30 ug/mg cr [facility] Comment:Albumin/Creatinine R atio Reference Ranges: Normal: < 30 ug/mg creatinine Microalbuminuria: 30 - 300 ug/mg creatinineClinical Albuminuria: > 300 ug/mg creatinine Urine (Urine, Random) 08/29/2024 11:51 AM EDT 08/29/2024 1:22 PM EDT us Ion Faulkner MD LAB URINE ORDERABLES Final Resul t Performing Organization Address [facility] Co de Phone Number [facility] [address] [place] [phone] * Lipid Panel, Standard (08/29/2024 11:51 AM EDT) Triglycerides 81 <150 mg/dL [facility] Comment:Desirable Triglyceri de: less than 150 mg/dLBorderline High Triglyceride 150-199 mg/dLHigh Triglyceride: 200-499 mg/dLVery High Triglyceride: greater than or equal to 5OO mg/dL Cholesterol 158 <200 mg/dL [facility] Comment:Desirable Cholestero l: less than 200 mg/dLBorderline High Cholesterol: 200-239 mg/dLHigh Cholesterol: greater than 239 mg/dL LDL Cholesterol Calculated 70 <100 mg/dL [facility] Comment:Desirable LDL: less than 100 mg/dLNear Optimal/Above Optimal LDL: 110- 129 mg/dLBorderline High LDL: 130-159 mg/dLHigh LDL: 160-189 mg/dLVery High LDL: greater than or equal to 190 mg/dL HDL Cholesterol 72 >40 mg/dL [facility] Comment:Desirable HDL: great er than 40 mg/dL Note: This HDL assay may give artificially low results in patients with liver disease. Blood Venous blood specimen / Unknown 08/29/2024 11:51 AM EDT 08/29/2024 1:13 PM EDT us Ion Faulkner MD LAB BLOOD ORDERABLES Final Resul t Performing Organization Address [facility]/ZIP Co de Phone Number [facility] [address] [place] [phone] * FIT DNA/Cologuard Cancer Screening (05/16/2024) Cologuard Cancer Screen Negative Stool 05/16/2024 us Ion Faulkner MD HEALTH MAINTENANCE Final Result * (ABNORMAL) POCT HGB A1C (04/25/2024 2:33 PM EST) Hemoglobin A1C 6.4(A) 4.0 - 6.0 % QC Media Lot # [id number] Lot# Expiration Date ,[id number] Blood 04/25/2024 2:33 PM EST us Ion Faulkner MD POINT OF CARE TEST ENTER/EDIT OR DERABLES Final Result * BI Mammogram Screening Tomosynthesis Bilateral (02/24/2024 1:45 PM EDT) Anatomical Region Laterality Modality Breast Bilateral Mammography 02/24/2024 1:45 PM EDT Narrative 03/07/2024 12:30 PM EDT [facility] [address] [place] [address] Mammography Report Signed with Yuni Patient: Kamryn Worley MR#: [id number] : 1955 Acct:[id number] Age/Sex: 68 / F ADM Date: 02/24/24 Loc: HO.MAMMO Attending Dr: Ion Faulkner MD Ordering Physician: Ion Faulkner MD Results: 1Negative Date of Service: 02/24/24 Follow Up: 1 Year From [facility] Mammogram Procedure(s): MM tomosynthesis screening BI Accession Number(s): [id number] cc: Ion Faulkner MD ADDENDUM ADDENDUM #1 ADDENDUM: Due to a software issue related to the original report, this case has been reviewed again and the original findings and recommendations remain the same. OVERALL ASSESSMENT: BI-RADS 1 - Negative RECOMMENDATION: 1 year F/U Electronically signed by: Charley Parks DO 03/10/2024 10:25 AM EDT RP Addendum Dictated By: Charley Parks DO Addendum Signed By: <Electronically signed by Charley Parks DO in OV> 03/10/24 1025 Addendum Cosigned By: [...] 03/07/24 1227 DD/ 1345 TD/TT: 02/24/24 1401 Project Administrative Assistant: Procedure Note Donotuseinterpreter, Image - 03/10/2024 [facility] [address] [place], [place] [address] Mammography Report Signed with Addenda Patient: Kamryn Worley MMR#: [id number] : 7Acct:[id number] Age/Sex: 68 / FADM Date: 02/24/24 Loc: HOGraysonMAMMO Attending Dr: Ion Faulkner MD Ordering Physician: Ion Faulkner MDResults: 1Negative Date of Service: 02/24/24Follow Up: 1 Year From Orig inal Mammogram Procedure(s): MM tomosynthesis screening BI Accession Number(s): [id number] cc: Name,Ion LAUREANO ADDENDUM ADDENDUM #1 ADDENDUM: [...] 03/07/24 1227 DD/ 1345 TD/TT: 02/24/24 1401 Project Administrative Assistant: Ion Name IMG BI PROCEDURES Edited Result - Final * Hm Diabetes Eye Exam (02/22/2023) Eye Exam Normal Normal Ion Name HEALTH MAINTENANCE Final Result * HPV mRNA E6/E7 (11/09/2018 2:41 PM EDT) HPV mRNA E6/E7 Not Detected NOT DETECTED [facility] Comment: This test was performed using the APTIMA(R) HPV Assay ([employer] This assay detects E6/E7 viral messenger RNA (mRNA) from 14 high-risk HPV types (16,18,31,33,35,39,45,51, 52,56,58,59,66,68). For additional information please refer to: http://education.S3Bubble/faq/OIC948a2 (This link is being provided for informational/ educational purposes only.) The analytical performance characteristics of this assay have been determined by [employer] [place], [place]. The modifications have not been cleared or approved by the FDA. This assay has been validated pursuant to the CLIA regulations and is used for clinical purposes. Test Performed by [facility], [address] [place] [address] Ortiz Taylor M.D., Ph.D., Director of Laboratories , CLIA [id number] Please note: Effective 01/20/2016, HPV testing will be performed using [employer]'s APTIMA test which targets mRNA. Detecting mRNA instead of DNA, as in older methods, offers significant improvements in specificity. 11/09/2018 2:41 PM EDT Zhanna Harrell CNM HISTORICAL/NON ORDERABLE LABS Final Result [facility] [address] from Last 3 Months or Most Recently Relevant to Health Maintenance Insurance [facility] STANDARD MEDICARE Care Teams Six Sigma Black Belt Engineer Relationship Specialty Start Date End Date Name, MD Ion [address] [place], [place] PCP - General Family Medicine 05/12/17
--- OUTSIDE RECORDS SUMMARY | 2025-03-21 15:01 | XMS_ITS | Encounter Summary ---
Author Organization [employer] Address [address] [facility] 7t [place] [address] Care Team Providers Care Machine Operator Replanter Name Role Phone Name, Ion LAUREANO Primary Care Provider [phone] Reason for Visit * Reason Comments Med Refill Encounter Details Date Type Department Care Team ([facility] st Contact Info) Description 03/16/2024 Refill [facility]INE [address] [place], [place] [phone] Name, MD Ion [address] [place] [address] Social History Tobacco Use Types Packs/Day Years [...] 3:15 PM EST Office Visit [facility] [address] [place] [phone] Name, MD Ion [address] [place] [address] documented as of this encounter Visit Diagnoses Not on filedocumented in this encounter Additional Health Concerns Assessment Noted Time PHQ-9 Depression Total Score: 4 09/24/19 24 11:33 AM EDT documented as of this encounter Care Teams Machine Operator Replanter Relationship Specialty Start Date End Date Name, MD Ion [address] [place] [address] PCP - General Family Medicine 05/12/17 documented as of this encounter
--- OUTSIDE RECORDS SUMMARY | 2025-03-21 15:01 | XMS_ITS | Encounter Summary ---
Author Organization [employer] Address [address] [facility] 7t [place] [address] Care Team Providers Care Director Of Convention Services Name Role Phone Name, Ion LAUREANO Primary Care Provider [phone] Reason for Visit * Reason Comments Med Refill Encounter Details Date Type Department Care Team ([facility] st Contact Info) Description 03/07/2023 Refill [facility] MEDICINE [address] [place], [place] [phone] Name, MD Ion [address] [place] [address] Social History Tobacco Use Types Packs/Day Years [...] 3:15 PM EST Office Visit [facility] [address] [place] [address] Name, MD Ion [address] [place] [address] documented as of this encounter Visit Diagnoses Not on filedocumented in this encounter Additional Health Concerns Assessment Noted Time PHQ-9 Depression Total Score: 7 09/01/19 23 10:47 AM EDT documented as of this encounter Care Teams Director Of Convention Services Relationship Specialty Start Date End Date Name, MD Ion [address] [place] [phone] PCP - General Family Medicine 05/12/17 documented as of this encounter
== END 2025-03-21 12:19 | disposition home or self-care (01) ==
LOC: HO.MAMMO 12:18
PROVIDERS: PCP Internal Medicine Geriatric Medicine; Visit Provider Internal Medicine Geriatric Medicine
DX: Z12.31 Encounter for screening mammogram for malignant neoplasm of breast (principal)
CPT/HCPCS: 77063; 77067

== ENCOUNTER → 2025-03-21 12:30 | Outpatient (BNV) | payer MEDICARE, MEDICAID, SELFPAY | PROVIDERS: PCP Internal Medicine Geriatric Medicine; Visit Provider Internal Medicine | DX: Z12.31 Encounter for screening mammogram for malignant neoplasm of breast (principal) | CPT/HCPCS: 77063; 77067 ==

== ENCOUNTER 2025-03-27 15:44 | Outpatient (REF) | payer MEDICARE, MEDICAID, SELFPAY ==
[2025-03-27 18:03] LABS: MANUAL DIFF FLAG NO
[2025-03-27 18:22] LABS: Hematocrit 39.8 % (37.0-47.0); Hemoglobin 13.0 g/dl (12.0-16.0); Imm Gran Abs Auto 0.04 X10*3/uL (0.00-0.03); Imm Gran Pct Auto 0.3 % (0.0-0.4); Lymphocytes Absolute Auto 3.7 X10*3/uL (1.2-4.9); Mean Corpuscular HGB Conc 32.7 g/dl (31.0-35.0); Mean Corpuscular Hemoglobin 28.0 pg (27.0-33.0); Mean Corpuscular Volume 85.6 fL (80.0-98.0); NRBC Abs Auto 0.000 X10*3/uL (0.0-0.012); NRBC Pct Auto 0.0 /100WBC (0.0-0.2); Platelet Count 430 X10*3/uL (160-400); Red Blood Count 4.65 X10*6/uL (4.20-5.50); White Blood Count 12.6 X10*3/uL (4.8-10.8)
[2025-03-27 18:55] LABS: Parathyroid Hormone Intact 67.3 pg/mL (8.7-77.1)
[2025-03-27 18:59] LABS: Alanine Aminotransferase 15 U/L (0-31); Albumin Level 5.0 g/dL (3.5-5.0); Alkaline Phosphatase 106 U/L (39-117); Anion Gap 17 (12-20); Aspartate Amino Transferase 24 U/L (5-31); Blood Urea Nitrogen 11 mg/dL (9-16); Calcium 10.2 mg/dL (8.4-10.2); Carbon Dioxide 25 mmol/L (22-29); Chloride 103 mmol/L (96-108); Cholesterol 127 mg/dL (<200); Estimated Glomerular Filt Rate > 60; HDL Cholesterol 66 mg/dL (>40); Potassium 4.0 mmol/L (3.3-5.1); Sodium 141 mmol/L (135-145); Total Protein 8.1 g/dL (6.5-8.0); Triglycerides 87 mg/dL (<150)
== END 2025-03-27 15:45 | disposition home or self-care (01) ==
LOC: HO.HHCL 15:44
PROVIDERS: PCP Internal Medicine Geriatric Medicine; Visit Provider Internal Medicine Geriatric Medicine
DX: E11.9 Type 2 diabetes mellitus without complications (principal); I10 Essential (primary) hypertension; E55.9 Vitamin D deficiency, unspecified; E78.00 Pure hypercholesterolemia, unspecified
CPT/HCPCS: 36415; 80053; 80061; 82306; 83970; 85025

== ENCOUNTER 2025-05-04 10:07 | Outpatient (REF) | payer MEDICARE, MEDICAID, SELFPAY ==
--- NOTE | ~2025-05-04 | CT_ITS ---
EXAMINATION: CT CHEST WITHOUT IV CONTRAST INDICATION: Follow up pulmonary nodule COMPARISON: Comparison is made with prior examinations dated 03/31/2022 and 03/02/2019. TECHNIQUE: Helical CT scan of the chest was performed without intravenous contrast. Coronal and sagittal reformatted images were generated and reviewed. This CT exam was performed with one or more of the following dose reduction techniques: automated exposure control, adjustment of the mA and/or kV according to patient size, use of iterative reconstruction technique. DLP: 256 mGy-cm CHEST: THYROID: The thyroid is unremarkable. LUNGS: Again seen is a 14 x 10 mm right middle lobe nodule (series 5, image 85) without change from the prior studies. There is a calcified granuloma in the left upper lobe (series 5, image 50). Pulmonary nodules are identified. There is subsegmental atelectasis in the right middle lobe and in both lower lobes. MEDIASTINUM: There is no mediastinal lymphadenopathy. YUSRA: Evaluation of the hilar regions is limited by lack of intravenous contrast material. CARDIOVASCULATURE: The heart is normal in size. There is no pericardial effusion. The thoracic aorta is normal in caliber. DEGREE OF CORONARY CALCIFICATION: moderate PLEURA: There is no pleural effusion. No pneumothorax. MAIN AIRWAYS: The mainstem bronchi and proximal branches are patent. AXILLA: There is no axillary lymphadenopathy. BONES AND SOFT TISSUES: There is a small to moderate hiatal hernia. There is degenerative disc disease of the spine. UPPER ABDOMEN: The visualized portions of the liver, spleen, and adrenals have an unremarkable unenhanced appearance. CT/CT chest wo IV con IMPRESSION: Stable 14 x 10 mm right middle lobe nodule. Electronically signed by: Iggy Sam MD 05/04/2025 10:49 AM EST
--- OUTSIDE RECORDS SUMMARY | 2025-05-04 10:11 | XMS_ITS | Encounter Summary ---
Author Organization [employer] Address [address] [facility] [address] [place] [address] Care Team Providers Care Cloud Consultant Name Role Phone Name, Ion LAUREANO Primary Care Provider [phone] Encounter Details Date Type Department Care Team (Late st Contact Info) Description 05/07/2023 Orders Only [facility] MEDICINE [address] [place], [place] [phone] Peri Garcia MD [address] [place], [place] [phone] Social History Tobacco Use Types Packs/Day Years [...] Care Team (Late st Contact Info) Description 06/26/2025 3:15 PM EST Office Visit [facility] MEDICINE [address] [place] [address] Name, MD Ion [address] [place] [address] documented as of this encounter Visit Diagnoses Not on filedocumented in this encounter Additional Health Concerns Assessment Noted Time PHQ-9 Depression Total Score: 7 09/01/19 23 10:47 AM EDT documented as of this encounter Care Teams Cloud Consultant Relationship Specialty Start Date End Date Name, MD Ion [address] [place] [address] PCP - General Family Medicine 05/12/17 documented as of this encounter
--- OUTSIDE RECORDS SUMMARY | 2025-05-04 10:11 | XMS_ITS | Encounter Summary ---
Author Organization [employer] Address 75 [facility] 7t [place] [address] Care Team Providers Care Coating Line Worker Name Role Phone Name, Ion LAUREANO Primary Care Provider [phone] Reason for Visit * Reason Comments Med Refill Encounter Details Date Type Department Care Team ([facility] st Contact Info) Description 03/16/2024 Refill [facility] MEDICINE [address] [place], [place] [phone] Name, MD Ion [address] [place] [address] Social History Tobacco Use Types Packs/Day Years [...] Description 06/26/2025 3:15 PM EST Office Visit [facility] MEDICINE [address] [place] [phone] Name, MD Ion [address] [place] [address] documented as of this encounter Visit Diagnoses Not on filedocumented in this encounter Additional Health Concerns Assessment Noted Time PHQ-9 Depression Total Score: 4 09/24/19 24 11:33 AM EDT documented as of this encounter Care Teams Coating Line Worker Relationship Specialty Start Date End Date Name, MD Ion [address] [place] [address] PCP - General Family Medicine 05/12/17 documented as of this encounter
--- OUTSIDE RECORDS SUMMARY | 2025-05-04 10:11 | XMS_ITS | Encounter Summary ---
Author Organization [employer] Address [address] [facility] 7t [place] [address] Care Team Providers Care Check Inspector Name Role Phone Name, Ion LAUREANO Primary Care Provider [phone] Encounter Details Date Type Department Care Team (Late st Contact Info) Description 06/11/2022 Orders Only [facility] [address] [place], [place] [phone] Alaina Del Cid LPN Social History Tobacco [...] 06/26/2025 3:15 PM EST Office Visit [facility] MEDICINE [address] [place], [place] [phone] Name, MD Ion [address] [place] [address] documented as of this encounter Procedures Procedure [...] Random Urine W/Creatinine (02/16/2023 8:50 AM EDT) [facility] Creatinine, Urine 27.38 mg/dL [facility] Microalbumin Urine <5.0 mg/L [facility] Microalbum Creatinine Ratio Ur TNP <30 ug/mg cr [facility] Comment:Unable to calculate albumin/creatinine ratio due to lowmicroalbumin or creatinine result. 02/16/2023 8:50 AM EDT 02/16/2023 11:26 AM EDT Ion Faulkner MD LAB URINE ORDERABLES Final Resul t Performing Organization Address [facility] Co de Phone Number [facility] [address] [place] [phone] * HIGH SENSITIVITY TROPONIN I (08/06/2022 1:25 PM EDT) [facility] TROPONIN I HIGH SENSITIVITY <3.5 <3.5 - 17.0 ng/L [facility] Comment:The Rubin high sens itivity Troponin-I results should beused in conjunction with other diagnostic information suchas ECG, clinical observations and information, and patientsymptoms to aid in the diagnosis of [place]. 08/06/2022 1:25 PM EDT 08/06/2022 1:28 PM EDT [facility] External Provider LAB BLO OD ORDERABLES Final Result Performing Organization Address [facility] Co de Phone Number [facility] [address] [place] [phone] * B Type Natriuretic Peptide (BNP) (08/06/2022 1:25 PM EDT) B Type Natriuretic Peptide 10 <100 pg/mL [facility] Comment:For those patients w ho are being treated with Natrecor(nesiritide, recombinant BNP), BNP testing should beperformed at least two hours post treatment in order toensure that only endogenous levels of BNP are detected. 08/06/2022 1:25 PM EDT 08/06/2022 1:28 PM EDT us [facility] External Provider LAB BLO OD ORDERABLES Final Result [facility] [address], [place] [phone] * (ABNORMAL) Basic Metabolic Panel (08/06/2022 1:25 PM EDT) Sodium 143 135 - 145 mmol/L [facility] Potassium 3.6 3.3 - 5.1 mmol/L [facility] Chloride 99 96 - 108 mmol/L [facility] Carbon Dioxide 30(H) 22 - 29 mmol/L [facility] Anion Gap 18 12 - 20 [facility] Urea Nitrogen (BUN) 17(H) 9 - 16 mg/dL [facility] Creatinine, Serum 0.83 0.5 - 1.4 mg/dL [facility] Creatinine Clr Calc Pharmacy 81.4 [facility] Comment:Provided height and weight: 167.64 cm,102 kg.eGFR (calculated from the MDRD study equation) and eCrCl(calculated from the Cockcroft-Gault equation) are based ondifferent parameters and may not yield comparable results.If eCrCl result is absurd, please check patient'sheight/weight. Estimated Glomerular Filt Rate >60 [facility] Comment:NOTE: For -Am erican individuals, multiply the result by 1.210.Chronic Kidney Disease: Estimated GFR < 60 mL/min/[id number] Kidney Disease: Estimated GFR < 15 mL/min/1.73m2 Glucose 145(H) 60 - 115 mg/dL [facility] Calcium 9.6 8.4 - 10.2 mg/dL [facility] 08/06/2022 1:25 PM EDT 08/06/2022 1:28 PM EDT [facility] External Provider LAB BLO OD ORDERABLES Final Result [facility] [address] [place] [phone] * (ABNORMAL) CBC auto differential (08/06/2022 1:25 PM EDT) White Blood Count 10.7 4.8 - 10.8 X10*3/uL [facility] Red Blood Count 4.61 4.20 - 5.50 X10*6/uL [facility] Hemoglobin 13.1 12.0 - 16.0 g/dl [facility] Hematocrit 39.9 37.0 - 47.0 % [facility] Mean Corpuscular Volume 86.6 80.0 - 98.0 fL [facility] Mean Corpuscular Hemoglobin 28.4 27.0 - 33.0 pg [facility] Mean Corpuscular HGB Conc 32.8 31.0 - 35.0 g/dl [facility] Red Cell Distribution Width 13.6 11.0 - 16.0 % [facility] Platelet Count 333 160 - 400 X10*3/uL [facility] Mean Platelet Volume 8.9(L) 9.4 - 12.3 fL [facility] Neutrophils Percent Auto 47.8 45 - 73 % [facility] Imm Gran Pct Auto 0.3 0.0 - 0.4 % [facility] Lymphocytes Percent Auto 30.3 20 - 40 % [facility] Monocytes Percent Auto 9.9 2 - 11 % [facility] Eosinophils Percent Auto 10.9(H) 0 - 4 % [facility] Basophils Percent Auto 0.8 0 - 2 % [facility] NRBC Pct Auto 0.0 0.0 - 0.2 /100WBC [facility] Neutrophils Absolute Auto 5.1 2.0 - 8.3 x10*3/uL [facility] Imm Gran Abs Auto 0.03 0.00 - 0.03 X10*3/uL [facility] Lymphocytes Absolute Auto 3.3 1.2 - 4.9 X10*3/uL [facility] Monocytes Absolute Auto 1.1 0.1 - 1.2 X10*3/uL [facility] Eosinophils Absolute Auto 1.2(H) 0.0 - 0.4 X10*3/uL [facility] Basophils Absolute Auto 0.1 0.0 - 0.2 X10*3/uL [facility] NRBC Abs Auto 0.000 0.0 - 0.012 X10*3/uL [facility] 08/06/2022 1:25 PM EDT 08/06/2022 1:28 PM EDT [facility] External Provider LAB BLO OD ORDERABLES Final Result Performing Organization Address City/State/[facility] Co de Phone Number [facility] [address] [place] [address] [phone] documented in this encounter Visit Diagnoses Not on filedocumented in this encounter Care Teams Check Inspector Relationship Specialty Start Date End Date Name, MD Ion [address] [place] [address] PCP - General Family Medicine 05/12/17 documented as of this encounter
--- OUTSIDE RECORDS SUMMARY | 2025-05-04 10:11 | XMS_ITS | Clinical Summary ---
Author Organization [employer] Address [address] [facility] [address] [place] [address] Care Team Providers Care Blending Tank Tender Name Role Phone Name, Ion LAUREANO Primary Care Provider [phone] Allergies Active Allergy Reactions Criticality Noted Date [...] breakfast. 180 tablet 3 12/13/19 25 Active cholecalcifero l (Vitamin D-3) 125 MCG (5000 UT) capsule TAKE 1 CAPSULE BY MOUTH DAILY 30 capsule 11 02/06/20 25 Active atorvastatin (Lipitor) 20 MG tablet TAKE 1 TABLET BY MOUTH EVERY DAY 90 tablet 03/02/20 25 Active fluticasone (Flonase) 50 MCG/ACT nasal sprayIndicatio ns:Runny nose INSTILL 2 SPRAYS IN EACH NOSTRIL ONCE PER DAY SHAKE GENTLY, BEFORE FIRST USE, PRIME PUMP 48 g 04/23/20 25 Active fluticasone (Flonase) 50 MCG/ACT nasal sprayIndicatio ns:Runny nose INSTILL 2 SPRAYS IN EACH NOSTRIL ONCE PER DAY SHAKE GENTLY, BEFORE FIRST USE, PRIME PUMP 48 g 01/04/20 25 025 Discontinued Active Problems Problem Noted [...] Encounters Date Type Department Care Team Description 04/21/2025 Refill [facility] [address] [place] [address] Ion Faulkner MD Runny nose 04/20/2025 Refill [facility] [address] [place] [phone] Celeste Ballard MD 04/20/2025 Refill [facility] [address] [place] [address] Celeste Ballard MD 03/27/2025 3:15 PM EST Office Visit [facility] [address] [place] [phone] Ion Faulkner MD Type 2 diabetes mellitus without complication, without long-term current use of insulin (HCC) (Primary Dx); Essential hypertension; Moderate persistent asthma without complication; Pure hypercholesterolemia; Vitamin D deficiency; Calcification of lung; Vaccine refused by patient 03/27/2025 Travel 03/21/2025 Orders Only [facility] [address] [place] [phone] Ion Faulkner MD 03/12/2025 Refill [facility] [address] [place] [address] Ion Faulkner MD Runny nose 03/01/2025 Refill [facility] [address] [place] [phone] Celeste Ballard MD 02/02/2025 Refill [facility] [address] [place] [phone] Ion Faulkner MD from Last 3 Months Immunizations Immunization Administration [...] Sign Reading Time Taken Comments Blood Pressure 182/52 03/27/2025 3:13 PM EST Pulse 103 03/27/2025 3:13 PM EST Temperature 35.9 C (96.7 F) 03/27/2025 3:13 PM EST Respiratory Rate 12 03/27/2025 3:13 PM EST Oxygen Saturation 95% 03/27/2025 3:13 PM EST Inhaled Oxygen Concentration - - Weight 114 kg (251 lb 12.8 oz) 03/27/2025 3:13 P M EST Height 167.6 cm (5' 6 ) 08/29/2024 11:29 AM EDT Body Mass Index 40.64 08/29/2024 11:29 AM EDT Plan of Treatment Upcoming Encounters Date Type Department Care Team (Late st Contact Info) Description 06/26/2025 3:15 PM EST Office Visit [facility] [address] [facility] [place] [address] Name, [place] [address] Health Maintenance Due Date Last Done Comments CT Colonography 1955 Colonoscopy 1955 FIT 1955 Sigmoidoscopy 1955 Alcohol/Substance Use Screening 1968 Hepatitis C Screening 1974 RSV Patients and Patients Aged 60 years or older (1 - Risk 50-74 years 1-dose series) 2006 Zoster Vaccines (1 of 2) 2006 DTaP/Tdap/Td Vaccines (1 - Tdap) 06/02/2017 06/01/2017 Pneumococcal Vaccine: 50+ Years (2 of 2 - PCV) 06/01/2018 06/01/2017 Depression Screening 09/23/2024 09/24/2023, 09/24/19 24 COVID-19 Vaccine ( - season) 2025 03/04/2021, 02/11/2021 Influenza Vaccine (#1) 2025 , 02/23/2022, 06/12/2019 Diabetes: Foot Exam 01/18/2025 01/19/2024, 01/19/2024, 01/19/2024, Additional history exists Eye Exam 02/22/2025 02/22/2023 SDOH Screening 04/25/2025 04/25/2024 FOBT 05/16/2025 05/16/2024, 05/10/2024 Diabetes: Urine Protein Screening 08/29/2025 08/29/2024, 02/16/2023, 07/03/2021, Additional history exists Diabetes: Hemoglobin A1C 09/24/2025 025, 04/25/2024, 09/24/2023, Additional history exists Lipid Panel 03/27/2026 03/27/2025, 08/09, 02/12/2023, Additional history exists Tobacco Screening 03/27/2026 03/27/2025 Mammogram 03/21/2027 03/21/2025, 02/07, 12/03/2020, Additional history exists Colorectal Cancer Screening 05/16/2027 [...] on patient's age to complete this topic Goals Goal Patient Goal Type Associated Problems Recent Progress Patient-Stated? Author Help patients manage their type 2 diabetes Care Plan Help patients manage their type 2 diabetes Azeem Rudd MA Weekly blood pressure task Care Plan Weekly blood pressure task Azeem Rudd MA Help patients manage their type 2 diabetes Care Plan Help patients manage their type 2 diabetes Azeem Rudd MA Patient has chronic kidney disease Care Plan Patient has chronic kidney disease Azeem Rudd MA Weekly blood pressure task Care Plan Weekly blood pressure task Azeem Rudd MA Patient has chronic kidney disease Care Plan Patient has chronic kidney disease Azeem Rudd MA Procedures Procedure Name Priority Date/Time Associated Diagnosis Comments LIPID PANEL, STANDARD Routine 03/27/2025 3:49 PM EST Pure hypercholesterolemia PTH, INTACT WITHOUT CALCIUM Routine 03/27/2025 3:49 PM EST Vitamin D deficiency VITAMIN D,25-OH,TOTAL,IA Routine 03/27/2025 3:49 PM EST Vitamin D deficiency COMPREHENSIVE METABOLIC PANEL Routine 03/27/2025 3:49 PM EST Essential hypertension CBC WITH AUTO DIFFERENTIAL Routine 03/27/2025 3:49 PM EST Type 2 diabetes mellitus without complication, without long-term current use of insulin ([facility]) Essential hypertension POCT GLYCATED HEMOGLOBIN, TOTAL Routine 03/27/2025 3:15 PM EST Type 2 diabetes mellitus without complication, without long-term current use of insulin ([facility]) POCT GLUCOSE (CPT-18523) Routine 03/27/2025 3:15 PM EST Type 2 diabetes mellitus without complication, without long-term current use of insulin ([facility]) BI MAMMOGRAM SCREENING TOMOSYNTHESIS BILATERAL Routine 03/21/2025 12:30 PM EST ALBUMIN, RANDOM URINE W/CREATININE Routine 08/29/2024 11:51 AM EDT Type 2 diabetes mellitus without complication, without long-term current use of insulin ([facility]/HCC) Essential hypertension FIT DNA/COLOGUARD CANCER SCREENING Routine 05/16/2024 DIABETES EYE EXAM Routine 02/22/2023 ZZZ HISTORICAL HPV MRNA E6/E7 Routine 11/09/2018 2:41 PM EDT from Last 3 Months or Most Recently Relevant to Health Maintenance Results * Vitamin D, 25-Hydroxy, Total, Immunoassay (03/27/2025 3:49 PM EST) Vitamin D 25-OH Total 62.2 >30 ng/mL [facility] Comment: Health Based Reference Values*< 20 ng/mL Vhocvegez41-98 ng/mL Insufficient> 30 ng/mL Sufficient*Priyank EMANUEL. N Engl J Med. 2007;357:266-280There is no well-established upper level of normal vitamin Dlevels. Some laboratories use 50 ng/mL as an upper limit ofnormal. However, toxicity is patient-dependent and may occurat any level. Careful correlation with the patient'spresentation is necessary and, if there is concern forvitamin D toxicity, treatment should be consideredirrespective of the serum level.Care must be taken in interpreting Vitamin D results fromdifferent laboratories and methodologies. Published datademonstrated that results from patients undergoinghemodialysis may show a negative bias when tested withvarious automated 25-OH vitamin D assays when compared toLC-MS/MS.When testing samples from patients whose predominant form ofVitamin D is Vitamin D2, such as patients receiving VitaminD2 supplementation, results that are subtherapeutic shouldbe confirmed with another method such as LC-MS/MS. Blood Venous blood specimen / Unknown 03/27/2025 3:49 PM EST 03/27/2025 5:55 PM EST us Ion Faulkner MD LAB BLOOD ORDERABLES Final Resul t [facility] [address] [place] [address] [phone] * (ABNORMAL) CBC auto differential (03/27/2025 3:49 PM EST) White Blood Count 12.6(H) 4.8 - 10.8 X10*3/uL [facility] Red Blood Count 4.65 4.20 - 5.50 X10*6/uL [facility] Hemoglobin 13.0 12.0 - 16.0 g/dl [facility] Hematocrit 39.8 37.0 - 47.0 % [facility] Mean Corpuscular Volume 85.6 80.0 - 98.0 fL [facility] Mean Corpuscular Hemoglobin 28.0 27.0 - 33.0 pg [facility] Mean Corpuscular HGB Conc 32.7 31.0 - 35.0 g/dl [facility] Red Cell Distribution Width 14.2 11.0 - 16.0 % [facility] Platelet Count 430(H) 160 - 400 X10*3/uL [facility] Mean Platelet Volume 9.5 9.4 - 12.3 fL [facility] Neutrophils Percent Auto 58.0 45 - 73 % [facility] Imm Gran Pct Auto 0.3 0.0 - 0.4 % [facility] Lymphocytes Percent Auto 29.0 20 - 40 % [facility] Monocytes Percent Auto 7.1 2 - 11 % [facility] Eosinophils Percent Auto 4.9(H) 0 - 4 % [facility] Basophils Percent Auto 0.7 0 - 2 % [facility] NRBC Pct Auto 0.0 0.0 - 0.2 /100WBC [facility] Neutrophils Absolute Auto 7.3 2.0 - 8.3 x10*3/uL [facility] Imm Gran Abs Auto 0.04(H) 0.00 - 0.03 X10*3/uL [facility] Lymphocytes Absolute Auto 3.7 1.2 - 4.9 X10*3/uL [facility] Monocytes Absolute Auto 0.9 0.1 - 1.2 X10*3/uL [facility] Eosinophils Absolute Auto 0.6(H) 0.0 - 0.4 X10*3/uL [facility] Basophils Absolute Auto 0.1 0.0 - 0.2 X10*3/uL [facility] NRBC Abs Auto 0.000 0.0 - 0.012 X10*3/uL [facility] Blood Venous blood specimen / Unknown 03/27/2025 3:49 PM EST 03/27/2025 5:55 PM EST us Ion Faulkner MD LAB BLOOD ORDERABLES Final Resul t [facility] [address] [place] [phone] [phone] * PTH, Intact Without Calcium (03/27/2025 3:49 PM EST) Parathyroid Hormone, Intact 67.3 8.7 - 77.1 pg/mL [facility] Blood Venous blood specimen / Unknown 03/27/2025 3:49 PM EST 03/27/2025 5:55 PM EST us Ion Faulkner MD LAB BLOOD ORDERABLES Final Resul t Performing Organization Address [facility] Co de Phone Number [facility] [address] [place] [address] [phone] * Lipid Panel, Standard (03/27/2025 3:49 PM EST) Triglycerides 87 <150 mg/dL [facility] Comment:Desirable Triglyceri de: less than 150 mg/dLBorderline High Triglyceride 150-199 mg/dLHigh Triglyceride: 200-499 mg/dLVery High Triglyceride: greater than or equal to 5OO mg/dL Cholesterol 127 <200 mg/dL [facility] Comment:Desirable Cholestero l: less than 200 mg/dLBorderline High Cholesterol: 200-239 mg/dLHigh Cholesterol: greater than 239 mg/dL LDL Cholesterol Calculated 44 <100 mg/dL [facility] Comment:Desirable LDL: less than 100 mg/dLNear Optimal/Above Optimal LDL: 110- 129 mg/dLBorderline High LDL: 130-159 mg/dLHigh LDL: 160-189 mg/dLVery High LDL: greater than or equal to 190 mg/dL HDL Cholesterol 66 >40 mg/dL [facility] Comment:Desirable HDL: great er than 40 mg/dL Note: This HDL assay may give artificially low results in patients with liver disease. Blood Venous blood specimen / Unknown 03/27/2025 3:49 PM EST 03/27/2025 5:55 PM EST us Ion Faulkner MD LAB BLOOD ORDERABLES Final Resul t Performing Organization Address [facility] Co de Phone Number [facility] [address] [place] [address] [phone] * (ABNORMAL) Comprehensive Metabolic Panel (03/27/2025 3:49 PM EST) Sodium 141 135 - 145 mmol/L [facility] Potassium 4.0 3.3 - 5.1 mmol/L [facility] Chloride 103 96 - 108 mmol/L [facility] Carbon Dioxide 25 22 - 29 mmol/L [facility] Anion Gap 17 12 - 20 [facility] Urea Nitrogen (BUN) 11 9 - 16 mg/dL [facility] Creatinine, Serum 0.75 0.5 - 1.4 mg/dL [facility] Estimated Glomerular Filt Rate >60 [facility] Comment:Chronic Kidney Disea se: Estimated GFR < 60 mL/min/1.32j2Zsznev Kidney Disease: Estimated GFR < 15 mL/min/1.73m2 Glucose 105 60 - 115 mg/dL [facility] Calcium 10.2 8.4 - 10.2 mg/dL [facility] Bilirubin, Total 0.7 0.0 - 1.0 mg/dL [facility] Aspartate Amino Transferase 24 5 - 31 U/L [facility] Alanine Aminotransferase 15 0 - 31 U/L [facility] Total Protein 8.1(H) 6.5 - 8.0 g/dL [facility] Albumin Level 5.0 3.5 - 5.0 g/dL [facility] Alkaline Phosphatase 106 39 - 117 U/L [facility] Blood Venous blood specimen / Unknown 03/27/2025 3:49 PM EST 03/27/2025 5:55 PM EST us Ion Name MD LAB BLOOD ORDERABLES Final Resul t [facility] [address] [place] [phone] * (ABNORMAL) POCT Hgb A1c (03/27/2025 3:15 PM EST) Hemoglobin A1C 6.1(A) 4.0 - 5.7 % QC Media Lot # [id number] Lot# Expiration Date Blood 03/27/2025 3:15 PM EST us Ion Faulkner MD POINT OF CARE TEST ENTER/EDIT OR DERABLES Final Result * POCT Glucose (03/27/2025 3:15 PM EST) Glucose Blood, POC 112 60 - 200 mg/dL QC Media Lot # [id number] Lot# Expiration Date Blood Capillary blood specimen / Unknown 03/27/2025 3:15 PM EST Ion Faulkner MD POINT OF CARE TEST ENTER/EDIT OR DERABLES Final Result * BI Mammogram Screening Tomosynthesis Bilateral (03/21/2025 12:30 PM EST) Anatomical Region Laterality Modality Breast Bilateral Mammography 03/21/2025 12:3 0 PM EST Narrative 03/26/2025 1:18 PM EST [facility] [address] [place] [address] Mammography Report Signed Patient: Kamryn Worley MR#: [id number] : 1955 Acct:[id number] Age/Sex: 69 / F ADM Date: 03/21/25 Loc: HO.MAMMO Attending Dr: Ion Faulkner MD Ordering Physician: Ion Faulkner MD Results: 1Negative Date of Service: 03/21/25 Follow Up: 1 Year From [facility] Mammogram Procedure(s): MM tomosynthesis screening BI Accession Number(s): [id number] cc: Ion Faulkner MD Reason For Exam: SCREENING EXAMINATION: MM SCREENING DIGITAL BREAST TOMOSYNTHESIS, BILATERAL CLINICAL INFORMATION: Screening. Asymptomatic. COMPARISON: Mammography: Comparison is made with available priors TECHNIQUE: Digital breast mammography with tomosynthesis is performed in both the craniocaudal and mediolateral oblique views along with computer-aided detection (CAD). FINDINGS: There are scattered areas of fibroglandular density. There are no significant masses, abnormal calcifications, or other abnormalities. MM/MM tomosynthesis screening BI IMPRESSION: No mammographic evidence of malignancy. ASSESSMENT: BI-RADS Category 1: Negative RECOMMENDATION: Routine annual mammography screening. 1 year F/U This examination should not preclude the clinical evaluation of a suspicious palpable abnormality. This patient's information was entered into a reminder system with a target due date for their next mammogram. Electronically signed by: Charley Parks DO 03/26/2025 01:15 PM [facility] Dictated By: Charley Parks DO Signed By: <Electronically signed by Charley Parks DO in OV> 03/26/25 1315 DD/ 1230 TD/TT: 03/21/25 1252 Chair Maker: Procedure Note Donotuseinterpreter, Image - 03/26/2025 [facility] [address] [place] [address] Mammography Report Signed Patient: Kamryn Worley MMR#: [id number] : 1955cct:[id number] Age/Sex: 69 / FADM Date: 03/21/25 Loc: HO.MAMMO Attending Dr: Ion Faulkner MD Ordering Physician: Ion Faulkneresults: 1Negative Date of Service: 03/21/25Follow Up: 1 Year From Orig ina Mammogram Procedure(s): MM tomosynthesis screening BI Accession Number(s): [id number] cc: Ion Faulkner MD Reason For Exam: SCREENING EXAMINATION: MM SCREENING DIGITAL BREAST TOMOSYNTHESIS, BILATERAL CLINICAL INFORMATION: Screening. Asymptomatic. COMPARISON: Mammography: Comparison is made with available priors TECHNIQUE: Digital breast mammography with tomosynthesis is performed in both the craniocaudal and mediolateral oblique views along with computer-aided detection (CAD). FINDINGS: There are scattered areas of fibroglandular density. There are no significant masses, abnormal calcifications, or other abnormalities. MM/MM tomosynthesis screening BI IMPRESSION: No mammographic evidence of malignancy. ASSESSMENT: BI-RADS Category 1: Negative RECOMMENDATION: Routine annual mammography screening. 1 year F/U This examination should not preclude the clinical evaluation of a suspicious palpable abnormality. This patient's information was entered into a reminder system with a target due date for their next mammogram. Electronically signed by: Charley Parsk DO 03/26/2025 01:15 PM [facility] Dictated By: Charley Parks DO Signed By: <Electronically signed by Charley Parks DO in OV> 03/26/25 1315 DD/ 1230 TD/TT: 03/21/25 1252 Chair Maker: Result Rahul Faulkner MD IMG BI PROCEDURES Final Result * (ABNORMAL) Albumin, Random Urine W/Creatinine (08/29/2024 11:51 AM EDT) Creatinine, Urine 68.94 mg/dL [facility] Microalbumin Urine 24.0 mg/L [facility] Microalbum Creatinine Ratio Ur 34.8(H) <30 ug/mg cr [facility] Comment:Albumin/Creatinine R atio Reference Ranges: Normal: < 30 ug/mg creatinine Microalbuminuria: 30 - 300 ug/mg creatinineClinical Albuminuria: > 300 ug/mg creatinine Urine (Urine, Random) 08/29/2024 11:51 AM EDT 08/29/2024 1:22 PM EDT Result Rahul Faulkner MD LAB URINE ORDERABLES Final Resul t [facility] [address] [place] [address] [phone] * FIT DNA/Cologuard Cancer Screening (05/16/2024) Cologuard Cancer Screen Negative Stool 05/16/2024 Result Rahul Faulkner MD HEALTH MAINTENANCE Final Result * Hm Diabetes Eye Exam (02/22/2023) Eye Exam Normal Normal Result Rahul Faulkner MD HEALTH MAINTENANCE Final Result * HPV mRNA E6/E7 (11/09/2018 2:41 PM EDT) HPV mRNA E6/E7 Not Detected NOT DETECTED [facility] Comment: This test was performed using the APTIMA(R) HPV Assay ([employer] This assay detects E6/E7 viral messenger RNA (mRNA) from 14 high-risk HPV types (16,18,31,33,35,39,45,51, 52,56,58,59,66,68). For additional information please refer to: http://education.[employer]/faq/POL560p6 (This link is being provided for informational/ educational purposes only.) The analytical performance characteristics of this assay have been determined by [employer] [place], [place]. The modifications have not been cleared or approved by the FDA. This assay has been validated pursuant to the CLIA regulations and is used for clinical purposes. Test Performed by [facility], [facility] [place], [address] [place] [address] Ortiz Taylor M.D., Ph.D., Director of Laboratories , CLIA [id number] Please note: Effective 01/20/2016, HPV testing will be performed using [employer]'s APTIMA test which targets mRNA. Detecting mRNA instead of DNA, as in older methods, offers significant improvements in specificity. 11/09/2018 2:41 PM EDT Zhanna Harrell CNM HISTORICAL/NON ORDERABLE LABS Final Result [facility] [address] from Last 3 Months or Most Recently Relevant to Health Maintenance Additional Health Concerns Active Problems Noted Date Diagnosed Date Help patients manage their type 2 diabetes 03/27 Weekly blood pressure task 03/27/2025 Help patients manage their type 2 diabetes 03/27 Patient has chronic kidney disease 03/27/2025 Weekly blood pressure task 03/27/2025 Patient has chronic kidney disease 03/27/2025 Insurance [facility] STANDARD MEDICARE Care Teams Blending Tank Tender Relationship Specialty Start Date End Date Name, MD Ion [address] [place], [place] PCP - General Family Medicine 05/12/17
--- OUTSIDE RECORDS SUMMARY | 2025-05-04 10:11 | XMS_ITS | Encounter Summary ---
Author Organization [employer] Address [address] [facility] 7t [place] [address] Care Team Providers Care Supervisor Contingents Name Role Phone Name, Ion LAUREANO Primary Care Provider [phone] Reason for Visit * Reason Comments Med Refill Encounter Details Date Type Department Care Team ([facility] st Contact Info) Description 04/20/2025 Refill [facility] [address] [place] [address] Celetse Ballard MD [address] [place] [address] Social History Tobacco Use Types Packs/Day Years [...] Description 06/26/2025 3:15 PM EST Office Visit [facility] [address] [place] [phone] Name, MD Ion [address] [place] [address] documented as of this encounter Goals Goal Patient Goal Type Associated Problems [...] has chronic kidney disease Azeem Rudd MA documented as of this encounter Visit Diagnoses Not on filedocumented in this encounter Additional Health Concerns Active Problems Noted Date Diagnosed Date Help patients manage their type 2 diabetes 03/27 Weekly blood pressure task 03/27/2025 Help patients manage their type 2 diabetes 03/27 Patient has chronic kidney disease 03/27/2025 Weekly blood pressure task 03/27/2025 Patient has chronic kidney disease 03/27/2025 Assessment Noted Time PHQ-9 Depression Total Score: 4 09/24/19 24 11:33 AM EDT documented as of this encounter Care Teams Supervisor Contingents Relationship Specialty Start Date End Date Name, MD Ion [address] [place] [address] PCP - General Family Medicine 05/12/17 documented as of this encounter
--- OUTSIDE RECORDS SUMMARY | 2025-05-04 10:11 | XMS_ITS | Encounter Summary ---
Author Organization [employer] Address [address] [facility] [address]t [place] [address] Care Team Providers Care Auditor Appraiser Name Role Phone Name, Ion LAUREANO Primary Care Provider [phone] Reason for Visit * Reason Comments Med Refill Encounter Details Date Type Department Care Team ([facility] st Contact Info) Description 11/03/2024 Refill [facility] [address] [place], [place] [phone] Name, MD Ion [address] [place] [address] Social History Tobacco Use Types Packs/Day Years [...] 06/26/2025 3:15 PM EST Office Visit [facility] [address] [place] [phone] Name, MD Ion [address] [place] [phone] documented as of this encounter Visit Diagnoses Not on filedocumented in this encounter Additional Health Concerns Assessment Noted Time PHQ-9 Depression Total Score: 4 09/24/19 24 11:33 AM EDT documented as of this encounter Care Teams Auditor Appraiser Relationship Specialty Start Date End Date NameIon MD [address] [place] [phone] PCP - General Family Medicine 05/12/17 documented as of this encounter
--- OUTSIDE RECORDS SUMMARY | 2025-05-04 10:11 | XMS_ITS | Encounter Summary ---
Author Organization [employer] Address [address] [facility] 7t [place] [address] Care Team Providers Care Imaging Account Manager Name Role Phone Name, Ion LAUREANO Primary Care Provider [phone] Reason for Visit * Reason Comments Med Refill Encounter Details Date Type Department Care Team ([facility] st Contact Info) Description 05/11/2023 Refill [facility] [address] [place], [place] [phone] Name, MD Ion [address] [place] [address] Runny nose Social History Tobacco Use Types [...] Description 06/26/2025 3:15 PM EST Office Visit [facility] [address] [place] [phone] Name, MD Ion [address] [place] [phone] documented as of this encounter Visit Diagnoses Diagnosis Runny nose Other diseases of nasal cavity and sinuses documented in this encounter Additional Health Concerns Assessment Noted Time PHQ-9 Depression Total Score: 7 09/01/19 23 10:47 AM EDT documented as of this encounter Care Teams Imaging Account Manager Relationship Specialty Start Date End Date Name, MD Ion [address] [place] [id number] PCP - General Family Medicine 05/12/17 documented as of this encounter
--- OUTSIDE RECORDS SUMMARY | 2025-05-04 10:11 | XMS_ITS | Encounter Summary ---
Author Organization [employer] Address [address] [facility] 7t [place] [address] Care Team Providers Care Career Technology Teacher Name Role Phone Name, Ion LAUREANO Primary Care Provider [phone] Reason for Visit * Reason Comments Med Refill Encounter Details Date Type Department Care Team ([facility] Contact Info) Description 09/25/2022 Refill [facility] [address] [place] [id number] Dori Madrid FNP Primary hypertension Social History [...] Upcoming Encounters Date Type Department Care Team ([facility] Contact Info) Description 06/26/2025 3:15 PM EST Office Visit [facility] [address] [place] [address] Name, MD Ion [address] [place] [address] documented as of this encounter Visit Diagnoses Diagnosis Primary hypertension Unspecified essential hypertension documented in this encounter Additional Health Concerns Assessment Noted Time PHQ-9 Depression Total Score: 7 09/01/19 23 10:47 AM EDT documented as of this encounter Care Teams Career Technology Teacher Relationship Specialty Start Date End Date Name, MD Ion [address] [place] [address] PCP - General Family Medicine 05/12/17 documented as of this encounter
--- OUTSIDE RECORDS SUMMARY | 2025-05-04 10:11 | XMS_ITS | Encounter Summary ---
Author Organization [employer] Address [address] [facility] 7t [place] [address] Care Team Providers Care Coke Production Heater Name Role Phone Name, Ion LAUREANO Primary Care Provider [phone] Reason for Visit * Reason Comments Med Refill Encounter Details Date Type Department Care Team ([facility] st Contact Info) Description 03/07/2023 Refill [facility] [address] [place], [place] [phone] Name, MD Ion [address] [place] [address] Social History Tobacco Use Types Packs/Day Years [...] Description 06/26/2025 3:15 PM EST Office Visit [facility] [address] [place] [address] Name, MD Ion [address] [place] [address] documented as of this encounter Visit Diagnoses Not on filedocumented in this encounter Additional Health Concerns Assessment Noted Time PHQ-9 Depression Total Score: 7 09/01/19 23 10:47 AM EDT documented as of this encounter Care Teams Coke Production Heater Relationship Specialty Start Date End Date Name, MD Ion [address] [place] [address] PCP - General Family Medicine 05/12/17 documented as of this encounter
--- OUTSIDE RECORDS SUMMARY | 2025-05-04 10:11 | XMS_ITS | Encounter Summary ---
Author Organization [email or web address] Address [address] [facility] 7t [place] [address] Care Team Providers Care Employee Communications Manager Name Role Phone Name, Ion LAUREANO Primary Care Provider [phone] Reason for Visit * Reason Comments Med Refill Encounter Details Date Type Department Care Team ([facility] st Contact Info) Description 04/20/2025 Refill [facility] [address] [place] [address] Celeste Ballard MD [address] [place] [address] Social History Tobacco Use Types Packs/Day Years [...] Office Visit [facility] [address] [place] [phone] Name, MD Ion [address] [place] [address] documented as of this encounter Goals Goal [...] documented as of this encounter Care Teams Employee Communications Manager Relationship Specialty Start Date End Date Name, MD Ion [address] [place] [address] PCP - General Family Medicine 05/12/17 documented as of this encounter
--- OUTSIDE RECORDS SUMMARY | 2025-05-04 10:11 | XMS_ITS | Encounter Summary ---
Author Organization [employer] Address [address] [facility] [address] [place] [address] Care Team Providers Care Honeycomb Decapper Name Role Phone Name, Ion LAUREANO Primary Care Provider [phone] Reason for Visit * Reason Comments Med Refill Encounter Details Date Type Department Care Team ([facility] st Contact Info) Description 03/12/2025 Refill [facility] [address] [place], [place] [phone] Name, MD Ion [address] [place] [address] Runny nose Social History Tobacco Use Types [...] Description 06/26/2025 3:15 PM EST Office Visit [facility] [address] [place] [phone] Name, MD Ion [address] [place] [phone] documented as of this encounter Visit Diagnoses Diagnosis Runny nose Other diseases of nasal cavity and sinuses documented in this encounter Additional Health Concerns Assessment Noted Time PHQ-9 Depression Total Score: 4 09/24/19 24 11:33 AM EDT documented as of this encounter Care Teams Honeycomb Decapper Relationship Specialty Start Date End Date Name, MD Ion [address] [place] [id number] PCP - General Family Medicine 05/12/17 documented as of this encounter
== END 2025-05-04 10:08 | disposition home or self-care (01) ==
LOC: HO.CT 10:07
PROVIDERS: PCP Internal Medicine Geriatric Medicine; Visit Provider Internal Medicine Geriatric Medicine
DX: J98.4 Other disorders of lung (principal)
CPT/HCPCS: 71250

== ENCOUNTER → 2025-05-04 10:09 | Outpatient (BNV) | payer MEDICARE, MEDICAID, SELFPAY | PROVIDERS: PCP Internal Medicine Geriatric Medicine; Visit Provider Radiology Diagnostic Radiology | DX: R91.1 Solitary pulmonary nodule (principal) | CPT/HCPCS: 71250 ==